=== PATIENT | male | born 1935 | race Caucasian/White ===

== ENCOUNTER 2019-04-19 16:02 | Inpatient (IN) | payer OTHER ==
[~2019-04-19] VITALS: Ht 172.7 cm; Wt 97.2 kg
--- NOTE | 2019-04-19 17:25 | NUR ---
Admission Note with Justification for Admission to [facility] Patient admitted to [facility] for protective oversight for emergency stabilization of acute psychiatric crisis. Pt admitted from: Hospital ER Mode of arrival: EMS Accompanied By: EMS Precipitating behaviors that initiated intake and admission: 20 lb weight loss, failure to thrive, not eating refusing meds, depressed, perseverating on dyspnea, declines visits at times Description of failure of out patient attempts at stabilization in previous setting list behavior and medication trials: tried Buspirone, sertraline, Quetiapine Behaviors and assessment findings upon admission: demanding, anxious, rude, depressed, A&Ox4 Plan: Admit for protective oversight for adjustment and stabilization of medications, behaviors and mood. Intense treatment regimen including groups, medication adjustments, therapy, consistent regimen for ADL's, self care, and sleep hygiene. Daily monitoring by Inpatient staff, Psychiatry, and Medical Physician.
[2019-04-19 17:38] VITALS: BP 109/72
[2019-04-19] MEDS ORDERED: RANI150T2 PO (19:40)
[2019-04-19] MEDS ORDERED: MIRT7.5T8 PO (19:40)
[2019-04-19] MEDS ORDERED: PRAV20TA2 PO (19:40)
[2019-04-19] MEDS ORDERED: BUDE0.25 IH (19:40)
[2019-04-19] MEDS ORDERED: POLY2500 PO (19:40)
[2019-04-19] MEDS ORDERED: SERT50TA PO (19:40)
[2019-04-19] MEDS ORDERED: TAMS0.4C97 PO (19:40)
[2019-04-19] MEDS ORDERED: QUET100T4 PO (19:40)
[2019-04-19] MEDS ORDERED: IPRA3AMP29 NEB (19:40)
[2019-04-19] MEDS ORDERED: METF500T3 PO (19:40)
[2019-04-19] MEDS ORDERED: FINA5TAB4 PO (19:40)
[2019-04-19] MEDS ORDERED: FORM20VI IH (19:40)
[2019-04-19] MEDS ORDERED: METHYL SALICYLATE/MENTHOL TOPICAL OINTMENT 57GM TUBE. TP PRN (20:00)
[2019-04-19] MEDS ORDERED: MAGNESIUM HYDROXIDE 2,400 MG/30 ML ORAL.SUSP. PO PRN (20:00)
[2019-04-19] MEDS ORDERED: MAG HYDROX/AL HYDROX/SIMETH 30 ML ORAL.SUSP PO PRN (20:00)
[2019-04-19] MEDS: BUDESONIDE 0.5 MG/2 ML NEBU NEB SCH (20:04)
[2019-04-19] MEDS: TAMSULOSIN 0.4 MG CAP.ER.24H. PO SCH (20:13)
[2019-04-19] MEDS: MIRTAZAPINE 7.5 MG TABLET. PO SCH (20:13)
[2019-04-19] MEDS: ATORVASTATIN CALCIUM 10 MG TABLET. PO SCH (20:14)
[2019-04-19] MEDS: QUEtiapine 100 MG TABLET. PO SCH (20:14)
[2019-04-19] MEDS ORDERED: NON FORMULARY ITEM (Formoterol Fumarate (Perforomist) 20 MCG) IH SCH (21:00)
[2019-04-19] MEDS ORDERED: BUDESONIDE 0.25 MG IH SCH (21:00)
--- NOTE | 2019-04-19 21:34 | PDOC ---
Exam Note: Alvaro Note: Please also refer to the separate dictated note~for this date of service dictated separately. Discussed the patient with Nursing staff reviewed the chart.~Reviewed interim history and current functioning. Reviewed vital signs,~Labs/ Radiology~and current medications noted below. Continue current treatment with the changes noted in the dictated addendum note Assessment: Vital Signs/I&O: Vital Signs Date Time Temp Pulse Resp B/P (MAP) Pulse Ox O2 Delivery O2 Flow Rate FiO2 04/19/19 20:04 95 Room Air 04/19/19 17:38 97.3 72 17 109/72 (84) Labs: Laboratory Tests Test 04/19/19 19:17 Glucose (Fingerstick) 142 mg/dL (70-99) H Current Medications: Meds: Current Medications Medications (Trade) Dose Ordered Sig/Bree Route PRN Reason Start Time Stop Time Status Last Admin Dose Admin Tamsulosin HCl (Flomax) 0.8 mg HS PO 04/19/19 21:00 04/19/19 20:14 Non-Formulary Medication (Budesonide ) 0.25 mg BID IH 04/19/19 21:00 04/19/19 20:06 DC 04/19/19 20:04 Atorvastatin Calcium (Lipitor) 5 mg QHS PO 04/19/19 21:00 04/19/19 20:14 Mirtazapine (Remeron) 7.5 mg HS PO 04/19/19 21:00 04/19/19 20:14 Quetiapine Fumarate (SEROquel) 100 mg HS PO 04/19/19 21:00 04/19/19 20:14 I have reviewed the current psychotropics carefully including drug interactions. Risk benefit ratio favors no change other than as noted in my dictated progress note. 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
[2019-04-19 22:00] LABS: BASO % 1 % (0-3); EOS # 0.2 x10^3/uL (0.0-0.7); EOS % 4 % (0-3); HEMATOCRIT 43.5 % (39.0-53.0); HEMOGLOBIN 14.9 g/dL (13.0-17.5); LYMPH % 30 % (24-48); MEAN CORPUSCULAR HEMOGLOBIN 30 pg (25-35); MEAN CORPUSCULAR HGB CONC 34 g/dL (31-37); MEAN CORPUSCULAR VOLUME 88 fL (79-100); MONO # 0.5 x10^3/uL (0.0-1.1); MONO % 8 % (0-9); NEUT # 3.8 x10^3uL (1.8-7.7); NEUT % 58 % (31-73); PLATELET COUNT 220 x10^3/uL (140-400); RED BLOOD COUNT 4.92 x10^6/uL (4.30-5.70); RED CELL DISTRIBUTION WIDTH 13.9 % (11.5-14.5); WHITE BLOOD COUNT 6.6 x10^3/uL (4.0-11.0)
[2019-04-19 22:27] LABS: ALBUMIN 3.4 g/dL (3.4-5.0); ALBUMIN/GLOBULIN RATIO 1.1 (1.0-1.7); CALCIUM 9.2 mg/dL (8.5-10.1); CREATININE 1.5 mg/dL (0.7-1.3); GFR 44.8; TOTAL BILIRUBIN 0.4 mg/dL (0.2-1.0); TOTAL PROTEIN 6.6 g/dL (6.4-8.2)
--- NOTE | 2019-04-20 00:50 | NUR ---
Pt sitting in day room at shift change. Pt irritable, demanding, and rude towards staff and other patients. When approached for HS medications and assessment, pt stated "this is a bunch of crap". Pt initially resistive with his medications but took them with encouragement.
[2019-04-20] MEDS: IPRATRPIUM/ALBUTEROL 0.5/2.5MG 3 ML NEBU. NEB PRN (05:35)
[2019-04-20 05:39] VITALS: BP 92/54
[2019-04-20 07:41] VITALS: BP 111/72
[2019-04-20] MEDS: BUDESONIDE 0.5 MG/2 ML NEBU NEB SCH ×2 (08:00→22:01)
[2019-04-20] MEDS: FINASTERIDE 5 MG TABLET PO SCH (08:45)
[2019-04-20] MEDS: SERTRALINE 25 MG TABLET. PO SCH (08:45)
[2019-04-20] MEDS: FAMOTIDINE 20 MG TABLET PO SCH (08:45)
[2019-04-20] MEDS: POLYETHYLENE GLYCOL 3350 17 GM PACKET. PO SCH (08:47)
--- NOTE | 2019-04-20 09:06 | NUR ---
Angel Luis is a CO fee for service as coordinated with SHUBHAM Leyva, at [facility] with contact number of [phone] ext. [phone]. Faxed written authorization letter to [place] registration office this date.
--- NOTE | 2019-04-20 09:29 | NUR ---
Nursing Note: Pt in dining room initially but left and went to his room for morning med pass. Pt irritable, anxious, demanding, claims that he had "no oxygen all night" as he points to oxygen concentrator. Pt was lying in his bed after breakfast and initially refused his medications but took them with encouragement. Pt stated that he was, "going downhill fast" but could not articulate exactly how. Explained that if he just stays in bed that his muscles will decondition and he will feel as if he cannot breath when he is just weak. Also, that if he does not eat he will feel the same way so it is important to give his body fuel. Pt also claimed that he is unable to urinate; planning to bladder scan pt prior to Dr. Bhanu lang. Pt was given breathing treatment this morning; however, pt reported no relief.
--- NOTE | 2019-04-20 11:25 | EKG ---
[address] [address] Test Date: 2019-04-20 Test Time: 05:49:46 Pat Name: MERCEDEZ FORD Department: Room: [facility] 1 Gender: M Director Of Institutional Research: JOSIAH : 1935 Requested By: NORM BRISENO Order Number: [id number] Reading MD: Danilo Pulido MD Measurements Intervals [place] Rate: 57 P: DE: QRS: -28 QRSD: 84 T: 18 QT: 420 QTc: 412 Interpretive Statements SR LAD Electronically Signed On 04-20-2019 16:06:40 CDT by Danilo Pulido MD
[2019-04-20 13:05] LABS: THYROID STIM HORMONE (TSH) 1.085 uIU/mL (0.358-3.740)
--- NOTE | 2019-04-20 13:40 | HP ---
ADMIT DATE: 04/19/2019 PSYCHIATRIC ADMISSION HISTORY AND EVALUATION This late entry, 04/19/2019, covers elements not covered in my initial note of 04/19/2019. The patient was seen individually evening of 04/19/2019. Discussed with Iris Brannon, dental hygienist mobile coordinator on 2 or 3 occasions earlier in the day and reviewed all the referral information from the [facility] where the patient has been on the Psychiatry and Medical/Surgical floor over the past 1 month or more on account of his confusion, depression, symptoms of failure to thrive, 20-pound weight loss, refusing medications, marked obsessiveness, declines visits from family at times. The patient had been sent to [facility] as a step-down from [facility], but he was unmanageable there, returned right back to the facility and he is referred to us for inpatient psychiatric stabilization on the Geriatric Psychiatry Unit since he has failed the inpatient psychiatry treatment at [facility]. He is referred by Dr. Pierce, his outpatient psychiatrist and Dr. Stacia Crowley, his primary care physician. He has also failed prior inpatient hospitalization at [facility] Psychiat[facility] In[facility] at [facility]. In the interim, his and son have been appointed co-guardians by the court. CHIEF COMPLAINT: "I came here today. I don't know why." HISTORY OF PRESENT ILLNESS: Reportedly, the patient had been recently living at home with his , was getting increasingly depressed, hopeless, helpless, worthless, failure to thrive. He has been inpatient as noted above and has been at the [facility] for perhaps longer than a month on different services and prior to that failed outpatient psychiatric interventions. He has been anxious, obsessive, admits to feeling helpless, hopeless, worthless, then minimizes this. He seems to have some mood swings, but no clear diagnosis of bipolar disorder. He does have short-term memory deficits and sleep disturbance as well. PAST PSYCHIATRIC HISTORY: As noted above. MEDICAL HISTORY: BPH, type 2 diabetes mellitus, hyperlipidemia, coronary artery disease, osteoporosis, GERD, colon polyps, failure to thrive, broken coccyx in 09/2018, chronic dyspnea, history of esophageal dilatation 15 years ago, 20-pound weight loss and anxiety. ACCU-CHEKS: Before meals and at bedtime. CODE STATUS: Full code. ALLERGIES: TETANUS TOXOID, AMBIEN, DEPAKOTE. DIET: Ground meat. Takes medications whole. UA negative at [facility]. He remains anxious, irritable, resistive, demanding, quite rude. CURRENT PSYCHOTROPICS: Zoloft 75 mg a day, Seroquel 100 mg at bedtime, Remeron 7.5 mg at bedtime. FAMILY HISTORY: Noncontributory. SOCIAL HISTORY: No clear history of alcohol, drug abuse, physical, sexual or elder abuse. Not known to be a perpetrator. REACTION TO HOSPITALIZATION: The patient accepting of it. ASSETS: Supportive family. MENTAL STATUS EXAMINATION: The patient was seen individually evening of 04/19/2019. I met with him at some length. He is oriented to himself and situation, knew he arrived here earlier in the day on 04/19/2019 from the [facility]. He is aware that the president is President Mal, knew it was 2018, but unsure of the date. Speech coherent, at times rapid. He is anxious. Mood is depressed. Affect is mood congruent. No active suicidal or homicidal ideation. He is somewhat paranoid, minimizes circumstances prompting admission. Attention span short. Language function intact. Intellect average. Insight limited, judgment marginal, resulting in the guardianship noted above. LABORATORY DATA: Reviewed. IMPRESSION: Major depressive disorder, recurrent with possible psychotic features, mild cognitive impairment; anxiety disorder, unspecified; rule out bipolar disorder, unspecified. Rest as above. PLAN: Admit to Geropsychiatry Unit at [facility]. I will see the patient daily individually from a psychiatric standpoint. Medical followup with Dr. Drummond. We will continue the patient on his current medications, observe baseline. Further review all his extensive records from the [facility]. Make further adjustments as clinically indicated. If symptoms of bipolar disorder are evident, may consider Depakote as a mood stabilizer. May consider Abilify to augment the Zoloft and may need to consider increasing the Zoloft or changing his antidepressants to another SSRI or SNRI depending on his past responses. We will make all those decisions after the baseline assessment. NORM BRISENO MD DR: ESTHER/joel JOB#: [id number] / [id number]
[2019-04-20 16:23] VITALS: BP 100/66
--- NOTE | 2019-04-20 16:24 | NUR ---
Nursing Note: Bladder scanned pt and found that he had approx 121ml. No need to straight cath. As pt being scanned pt said that he had just urinated but not much had "come out' and that he was not drinking very much. Reminded pt that if he does not drink that he will become dehydrated and require an IV. Pt stated that he didn't eat lunch;told pt that if he doesn't eat he will end up down on Med Surg very weak.
[2019-04-20] MEDS: metFORMIN XR 500 MG TAB.ER.24H PO SCH (17:00)
--- NOTE | 2019-04-20 17:47 | NUR ---
Nursing Note: Pt's and daughter visited. Daughter claims that pt is manipulative, highly intelligent, enjoys being the center of attention especially surrounding being sick. Pt's mother committed suicide when he was young after learning that she had cancer. Pt was mother's only child; father went on to remarry and have three more children. Pt was raised by an aunt that never and gave all of her attention to pt. Daughter believes that is an enabler. suffered multiple fractures as the result of falling down a flight of stairs and before completely healing began waiting on pt "hand and foot." According to daughter, pt's son moved to a different country to escape his father's manipulation. Pt was on 10th floor, psych floor, of [facility] within this year. Angel Luis BENAVIDES from Pt' Primary Care Team @ the [facility] called and is avail for more information at [phone]. Sent for records from [facility]. Staff informed that pt wet through his brief after dinner.
--- NOTE | 2019-04-20 18:00 | NUR ---
Pt requested lab results; given to pt per Dr. Garcia.
[2019-04-20 18:06] LABS: THYROXINE 6.5 ug/dL (4.5-12.0)
[2019-04-20] MEDS: ATORVASTATIN CALCIUM 10 MG TABLET. PO SCH (19:28)
[2019-04-20] MEDS: MIRTAZAPINE 7.5 MG TABLET. PO SCH (19:29)
[2019-04-20] MEDS: TAMSULOSIN 0.4 MG CAP.ER.24H. PO SCH (19:29)
[2019-04-20] MEDS: QUEtiapine 100 MG TABLET. PO SCH (19:29)
[2019-04-20] MEDS: CYPROHEPTADINE 4 MG TABLET. PO SCH (19:31)
[2019-04-20] MEDS ORDERED: NYSTATIN TOPICAL POWDER 15GM BOTTLE. TP PRN (20:45)
--- NOTE | 2019-04-20 21:33 | NUR ---
Pt sitting in day room at shift change. Pt slightly anxious but pleasant this evening, interactive with this nurse. Pt encouraged to drink more fluids and to eat a snack but pt resistive despite education. Pt cooperative with assessment and compliant with medications administered whole.
--- NOTE | 2019-04-20 21:37 | PDOC ---
Exam Note: Alvaro Note: Please also refer to the separate dictated note~for this date of service dictated separately.~Patient seen individually. Discussed the patient with Nursing staff reviewed the chart.~Reviewed interim history and current functioning. Reviewed vital signs,~Labs/ Radiology~and current medications noted below. Continue current treatment with the changes noted in the dictated addendum note Assessment: Vital Signs/I&O: Vital Signs Date Time Temp Pulse Resp B/P (MAP) Pulse Ox O2 Delivery O2 Flow Rate FiO2 04/20/19 20:10 97 Room Air 04/20/19 16:23 98.1 69 18 100/66 (77) I & O 04/19/19 04/19/19 04/20/19 15:00 23:00 07:00 Intake Total 240 ml 360 ml Balance 240 ml 360 ml Labs: Laboratory Tests Test 04/19/19 21:40 04/20/19 07:25 04/20/19 12:01 04/20/19 17:09 White Blood Count 6.6 x10^3/uL (4.0-11.0) Red Blood Count 4.92 x10^6/uL (4.30-5.70) Hemoglobin 14.9 g/dL (13.0-17.5) Hematocrit 43.5 % (39.0-53.0) Mean Corpuscular Volume 88 fL (79-100) Mean Corpuscular Hemoglobin 30 pg (25-35) Mean Corpuscular Hemoglobin Concent 34 g/dL (31-37) Red Cell Distribution Width 13.9 % (11.5-14.5) Platelet Count 220 x10^3/uL (140-400) Neutrophils (%) (Auto) 58 % (31-73) Lymphocytes (%) (Auto) 30 % (24-48) Monocytes (%) (Auto) 8 % (0-9) Eosinophils (%) (Auto) 4 % (0-3) H Basophils (%) (Auto) 1 % (0-3) Neutrophils # (Auto) 3.8 x10^3uL (1.8-7.7) Lymphocytes # (Auto) 2.0 x10^3/uL (1.0-4.8) Monocytes # (Auto) 0.5 x10^3/uL (0.0-1.1) Eosinophils # (Auto) 0.2 x10^3/uL (0.0-0.7) Basophils # (Auto) 0.0 x10^3/uL (0.0-0.2) Sodium Level 141 mmol/L (136-145) Potassium Level 4.0 mmol/L (3.5-5.1) Chloride Level 106 mmol/L (98-107) Carbon Dioxide Level 27 mmol/L (21-32) Anion Gap 8 (6-14) Blood Urea Nitrogen 28 mg/dL (8-26) H Creatinine 1.5 mg/dL (0.7-1.3) H Estimated GFR (Cockcroft-Gault) 44.8 BUN/Creatinine Ratio 19 (6-20) Glucose Level 91 mg/dL (70-99) Calcium Level 9.2 mg/dL (8.5-10.1) Iron Level 36 ug/dL (65-175) L Total Iron Binding Capacity 254 ug/dL (250-450) Iron Saturation 14 % (15-34) L Total Bilirubin 0.4 mg/dL (0.2-1.0) Aspartate Amino Transferase (AST) 22 U/L (15-37) Alanine Aminotransferase (ALT) 38 U/L (16-63) Alkaline Phosphatase 67 U/L (46-116) Total Protein 6.6 g/dL (6.4-8.2) Albumin 3.4 g/dL (3.4-5.0) Albumin/Globulin Ratio 1.1 (1.0-1.7) Triglycerides Level 74 mg/dL (0-150) Cholesterol Level 98 mg/dL (0-200) LDL Cholesterol, Calculated 42 mg/dL (0-100) VLDL Cholesterol, Calculated 14 mg/dL (0-40) Non-HDL Cholesterol Calculated 56 mg/dL (0-129) HDL Cholesterol 42 mg/dL (40-60) Cholesterol/HDL Ratio 2.0 25-Hydroxy Vitamin D Total 45.4 ng/mL (30-100) Thyroid Stimulating Hormone (TSH) 1.085 uIU/mL (0.358-3.740) Thyroxine (T4) 6.5 ug/dL (4.5-12.0) Total Triiodothyronine (TT3) 100 ng/dL (71-180) Treponema pallidum Antibody Nonreactive (Nonreactive) Glucose (Fingerstick) 121 mg/dL (70-99) H 99 mg/dL (70-99) 121 mg/dL (70-99) H Test 04/20/19 19:50 Glucose (Fingerstick) 100 mg/dL (70-99) H Current Medications: Meds: Current Medications Medications (Trade) Dose Ordered Sig/Bree Route PRN Reason Start Time Stop Time Status Last Admin Dose Admin Finasteride (Proscar) 5 mg DAILY PO 04/20/19 09:00 04/20/19 08:47 Metformin HCl (Glucophage Xr) 500 mg DAILYWSUP PO 04/20/19 17:00 04/20/19 17:31 Polyethylene Glycol (miraLAX) 17 gm DAILY PO 04/20/19 09:00 04/20/19 08:47 Famotidine (Pepcid) 20 mg DAILY PO 04/20/19 09:00 04/20/19 08:47 Sertraline HCl (Zoloft) 75 mg DAILY PO 04/20/19 09:00 04/20/19 08:47 Cyproheptadine HCl (Periactin) 2 mg QHS PO 04/20/19 21:00 04/20/19 19:31 I have reviewed the current psychotropics carefully including drug interactions. Risk benefit ratio favors no change other than as noted in my dictated progress note. 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
[2019-04-21 04:09] LABS: HEMOGLOBIN A1C 5.6 % (4.8-5.6)
[2019-04-21 06:13] VITALS: BP 109/69
[2019-04-21] MEDS: POLYETHYLENE GLYCOL 3350 17 GM PACKET. PO SCH (08:07)
[2019-04-21] MEDS: FAMOTIDINE 20 MG TABLET PO SCH (08:07)
[2019-04-21] MEDS: FINASTERIDE 5 MG TABLET PO SCH (08:07)
[2019-04-21] MEDS: SERTRALINE 25 MG TABLET. PO SCH (08:07)
--- NOTE | 2019-04-21 10:47 | NUR ---
Has been resistive to all cares this a.m. Finally walked to dining room and ate breakfast with intense redirecting by staff. Then repeatedly states "I can't I can't." Took meds whole with sips of water and miralax in OJ, but did not complete entire dose of miralax. Same behavior with shower. Assisted by 2 then received shower. Physically able to ambulate and participate in all activities, but isolates in his bed. Just now, when asked to go to group, became demanding RT be called now for his nebulizer treatment. O2 sat is 97%, no observed respiratory distress, no coughing and no drainage. When asked why he wants the treatment, states "It's twice a day, check the record, quit asking me all these questions and call them now!" Lying in bed, fully clothed, resting on L side, awake.
--- NOTE | 2019-04-21 10:54 | NUR ---
RT notified and plans to see him soon. Pt. informed of same.
[2019-04-21] MEDS: BUDESONIDE 0.5 MG/2 ML NEBU NEB SCH ×2 (10:58→20:06)
--- NOTE | 2019-04-21 12:32 | CONS ---
DATE OF CONSULTATION: REASON FOR CONSULTATION: Medical management. HISTORY OF PRESENT ILLNESS: The patient is an 83-year-old female patient who apparently was referred from [facility] where the patient has been on the Psychiatry and Medical/Surgical floor over the past month or more on account of his confusion, depression, symptoms of failure to thrive, has lost about 20 pounds in weight, refusing medication and marked obsessiveness declines visits from the family at times. He was sent to [facility] as a step-down from [facility], but he was unmanageable there, returned right back to the facility and he was referred to us for inpatient psychiatric stabilization. He apparently has been living at home with his , was getting increasingly depressed, hopeless, helpless, worthless, failure to thrive, has been an inpatient as well as above and has been at the [facility] for perhaps longer than a month, different services and prior to that failed outpatient psychiatric stabilization and was admitted to this unit for inpatient psychiatric stabilization. PAST MEDICAL HISTORY: Significant for benign prostatic hypertrophy, type 2 diabetes, hyperlipidemia, coronary artery disease, osteoporosis, gastroesophageal reflux disease. He has colon polyps and broken coccyx, chronic dyspnea, history of esophageal dilatation 15 years ago and 20-pound weight loss. PAST SURGICAL HISTORY: Significant for esophageal dilatation and colonoscopy. ALLERGIES: He is allergic to TETANUS TOXOIDS, AMBIEN and DEPAKOTE. FAMILY HISTORY: Noncontributory. SOCIAL HISTORY: He is . Apparently, he does not smoke, drink alcohol or use recreational drugs. MEDICATIONS: He is currently on following medications: He is on ipratropium bromide, albuterol sulfate, DuoNeb in 3 mL by nebulizer 4 times a day, formoterol fumarate or Perforomist 20 mcg twice a day, Flomax 0.8 mg at bedtime, pravastatin 20 mg at bedtime, mirtazapine 7.5 mg at bedtime, sertraline or Zoloft 75 mg daily, quetiapine fumarate 100 mg at bedtime, Pulmicort 0.5 mg twice a day, ranitidine 150 mg once a day, metformin extended release 500 mg daily, finasteride 5 mg daily and polyethylene glycol 17 grams daily. PHYSICAL EXAMINATION: GENERAL: On examining him, he was sitting comfortably in his chair, in no apparent distress. He is definitely pale, but no jaundice or cyanosis. No lymphadenopathy, no thyromegaly. No jugular venous distension. No lower limb edema. VITAL SIGNS: His heart rate was 62, blood pressure was 111/72, temperature was 98, respiratory rate 22, and oxygen saturation was 97% on room air. HEAD, EYES, EARS, NOSE AND THROAT: Showed normocephalic, atraumatic. NECK: Supple. HEART: Showed normal first and second heart sounds with no gallop, rub or murmur. CHEST: Clear to auscultation. No crepitation or rhonchi. ABDOMEN: Distended, soft, nontender. No guarding or rigidity. No organomegaly. All hernial orifice intact. Bowel sounds normal. NEUROLOGIC: He was awake, alert, responding appropriately. All cranial nerves are intact. EXTREMITIES: He moves extremities without difficulty. He ambulates without assistance or assistive devices. LABORATORY DATA: Showed a serum sodium 141, potassium 4, chloride 106, bicarbonate 27, anion gap of 8, BUN 28, creatinine 1.5, estimated GFR was 45 mL per minute. His glucose was 91, calcium was 9.2. Total bilirubin, AST, ALT, alkaline phosphatase were normal. Total protein was 6.6, albumin was 3.4. His white cell count was 6600, hemoglobin 15, hematocrit 44, MCV 88 and platelet count 120,000. His treponema pallidum antibodies were nonreactive. IMPRESSION: In summary, this is an 83-year-old male patient who was admitted on account of 20-pound weight loss, failure to thrive, not eating, refusing medication, due to weight and dyspnea, declines visits at times, all this in a background of major depressive disorder. Medically, he is known to have benign prostatic hypertrophy, type 2 diabetes, hyperlipidemia, coronary artery disease, osteoporosis, gastroesophageal reflux disease and esophageal stricture that was dilated about 15 years ago; however, all in all, the patient seems to be medically stable. All his vital signs are within acceptable range and all his lab works are well within the normal range for his age. His serum iron, TIBC and iron saturation are all consistent with adequate iron stores. His serum triglycerides 74, total cholesterol 98, LDL was 42, VLDL was 14, HDL was 52 and ratio was 2. His 25-hydroxy vitamin D score stores were adequate at 45 and TSH was normal at 1.085. I will definitely continue all his current medication. I will follow his lab works that are still pending at the time of this dictation and make any necessary recommendation. Thank you, Dr. Garcia, for allowing me to participate in the care of this patient. BRITTNI DIMAS MD DR: HOANG/joel JOB#: [id number] / [id number]
[2019-04-21 16:03] VITALS: BP 94/58
[2019-04-21] MEDS: metFORMIN XR 500 MG TAB.ER.24H PO SCH (16:28)
[2019-04-21] MEDS: TAMSULOSIN 0.4 MG CAP.ER.24H. PO SCH (20:12)
[2019-04-21] MEDS: CYPROHEPTADINE 4 MG TABLET. PO SCH (20:12)
[2019-04-21] MEDS: ATORVASTATIN CALCIUM 10 MG TABLET. PO SCH (20:13)
[2019-04-21] MEDS: QUEtiapine 100 MG TABLET. PO SCH (20:13)
[2019-04-21] MEDS: MIRTAZAPINE 7.5 MG TABLET. PO SCH (20:13)
--- NOTE | 2019-04-21 22:54 | PDOC ---
Exam Note: Alvaro Note: Please also refer to the separate dictated note~for this date of service dictated separately.~Patient seen individually. Discussed the patient with Nursing staff reviewed the chart.~Reviewed interim history and current functioning. Reviewed vital signs,~Labs/ Radiology~and current medications noted below. Continue current treatment with the changes noted in the dictated addendum note Assessment: Vital Signs/I&O: Vital Signs Date Time Temp Pulse Resp B/P (MAP) Pulse Ox O2 Delivery O2 Flow Rate FiO2 04/21/19 20:08 95 Room Air 04/21/19 16:03 97.7 70 20 94/58 (70) I & O 04/20/19 04/20/19 04/21/19 15:00 23:00 07:00 Intake Total 600 ml 360 ml Balance 600 ml 360 ml Labs: Laboratory Tests Test 04/21/19 07:12 04/21/19 11:42 04/21/19 16:25 Glucose (Fingerstick) 114 mg/dL (70-99) H 125 mg/dL (70-99) H 128 mg/dL (70-99) H Current Medications: I have reviewed the current psychotropics carefully including drug interactions. Risk benefit ratio favors no change other than as noted in my dictated progress note. 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
--- NOTE | 2019-04-21 23:26 | NUR ---
Nursing Note: Assumed care of pt this evening, he was sitting in the day room. He has been calm, irritable at times, and withdrawn to self. He has been compliant with taking his HS meds whole this evening. No agitation or aggression noted at this time.
[2019-04-22] MEDS: IPRATRPIUM/ALBUTEROL 0.5/2.5MG 3 ML NEBU. NEB PRN (01:15)
[2019-04-22 05:57] VITALS: BP 105/72
[2019-04-22] MEDS: FAMOTIDINE 20 MG TABLET PO SCH (08:03)
[2019-04-22] MEDS: SERTRALINE 25 MG TABLET. PO SCH (08:04)
[2019-04-22] MEDS: POLYETHYLENE GLYCOL 3350 17 GM PACKET. PO SCH (08:05)
[2019-04-22] MEDS: FINASTERIDE 5 MG TABLET PO SCH (08:05)
[2019-04-22] MEDS: BUDESONIDE 0.5 MG/2 ML NEBU NEB SCH ×2 (10:49→19:57)
--- NOTE | 2019-04-22 14:30 | NUR ---
ACTIVITY THERAPY ASSESSMENT Completed based on observation and interview. Pt. was in his room, with his roommate and agreeable to speak with ELECTRONIC SC[employer] ASSEMBLER [employer] TESTER with roommate present. When asked about leisure interests and hobbies, he explained he doesn't do much of anything anymore. He said "my number one problem is my breathing." He also explained he doesn't drive anymore so he cannot get involved with the [employer] or vivio any longer. He watches "a lot" of TV. He has not interest in music or exercising. Pt and ELECTRONIC SCALE ASSEMBLER AND TESTER talked about common length of stay here and group activities. Pt. asked about a schedule and ELECTRONIC SC[employer] ASSEMBLER [employer] TESTER will print him one to keep. He was concerned about the times of group. E[employer]IC SC[employer] ASSEMBLER AND TESTER asked if Pt. wanted staff to tell him when a group is starting. He said he would like that. E[employer] AS[employer]BLER AND TESTER asked if he wanted to be woken up for group, he said yes, explaining he sleeps during the day too much and then he's up all night. Pt. can fixate on breathing treatments and upon admission was anxious, irritable and making rude comments. Pt. was pleasant throughout this assessment. The two talked about anxiety and ways to reduce stress. Initial goal aimed to increase relaxation techniques and leisure awareness: Pt. will participate in at least five Activity Therapy groups per week. Addendum: 05/31/19 at 1035 by HUSSEIN BECKER ACT Goal Changed 05/31: Pt. will participate in at least one Activity Therapy group per day
--- NOTE | 2019-04-22 14:44 | NUR ---
Out of room more today. Has gone to meals. Denies pain. Interacting some with peers. No somatic complaints yet today. Has been aware of disruption with other patients on the floor. Managing well.
[2019-04-22 15:35] VITALS: BP 128/79
[2019-04-22] MEDS: metFORMIN XR 500 MG TAB.ER.24H PO SCH (16:54)
[2019-04-22] MEDS: TAMSULOSIN 0.4 MG CAP.ER.24H. PO SCH (19:51)
[2019-04-22] MEDS: ATORVASTATIN CALCIUM 10 MG TABLET. PO SCH (19:51)
[2019-04-22] MEDS: QUEtiapine 100 MG TABLET. PO SCH (19:52)
[2019-04-22] MEDS: CYPROHEPTADINE 4 MG TABLET. PO SCH (19:52)
[2019-04-22] MEDS: MIRTAZAPINE 7.5 MG TABLET. PO SCH (19:52)
[2019-04-22] MEDS: DOCUSATE SODIUM 100 MG CAPSULE PO SCH (21:18)
--- NOTE | 2019-04-22 21:31 | PDOC ---
Exam Note: Alvaro Note: Please also refer to the separate dictated note~for this date of service dictated separately.~Patient seen individually. Discussed the patient with Nursing staff reviewed the chart.~Reviewed interim history and current functioning. Reviewed vital signs,~Labs/ Radiology~and current medications noted below. Continue current treatment with the changes noted in the dictated addendum note Assessment: Vital Signs/I&O: Vital Signs Date Time Temp Pulse Resp B/P (MAP) Pulse Ox O2 Delivery O2 Flow Rate FiO2 04/22/19 19:58 95 Room Air 04/22/19 15:35 97.7 61 20 128/79 (95) 04/22/19 01:15 2.0 I & O 0 04/21/19 04/21/19 04/22/19 15:00 23:00 07:00 Intake Total 120 ml 240 ml 120 ml Balance 120 ml 240 ml 120 ml Current Medications: Meds: Current Medications Medications (Trade) Dose Ordered Sig/Bree Route PRN Reason Start Time Stop Time Status Last Admin Dose Admin Docusate Sodium (Colace) 100 mg BID PO 04/22/19 21:00 04/22/19 21:18 I have reviewed the current psychotropics carefully including drug interactions. Risk benefit ratio favors no change other than as noted in my dictated progress note. Diagnosis: Problems: (1) Anxiety disorder (2) Impulse control disorder (3) Mild cognitive impairment (4) Major depressive disorder, recurrent episode (5) Personality disorder in adult NORM BRISENO MD Apr 22, 2019 21:31
--- NOTE | 2019-04-22 23:58 | PN ---
DATE: 04/21/2019 PSYCHIATRY PROGRESS NOTE This late entry, 04/21, covers elements not covered in my initial note. SUBJECTIVE: I met with the patient at length in the evening and had been called as an emergency by the nursing staff earlier in the day on account of the patient's agitation and after he tried to push another female nursing staff. He was refusing his medications, refused to eat, but ate some snacks. REVIEW OF SYSTEMS: No CV, , pulmonary, eye system symptoms on review. MENTAL STATUS EXAM: The patient is reasonably oriented. Speech is coherent, abstraction fair, computation impaired, language function intact. Mood and affect remain somewhat anxious, depressed. No suicidal or homicidal ideation. LABORATORY DATA: Reviewed. IMPRESSION: Major depressive disorder, rule out psychotic features; anxiety disorder, unspecified; rest unchanged. PLAN: Continue current psychotropics, but consider changing Seroquel to Abilify, increasing the Zoloft gradually. For now, Periactin has been added and may consider SNRIs as well. If symptoms of mood lability are evident for bipolar disorder, unspecified, may consider adding Lamictal. MAN Suman BRISENO MD DR: ESTHER/joel JOB#: [id number] / [id number]
--- NOTE | 2019-04-23 00:26 | NUR ---
Nursing Note Pt asking for colace, having trouble having a BM per his report. Pt is in the day room, calm and cooperative. Smiles on approach, denies other complaints.
[2019-04-23 05:59] VITALS: BP 103/67
[2019-04-23] MEDS: FAMOTIDINE 20 MG TABLET PO SCH (08:43)
[2019-04-23] MEDS: DOCUSATE SODIUM 100 MG CAPSULE PO SCH ×3 (08:43→20:43)
[2019-04-23] MEDS: FINASTERIDE 5 MG TABLET PO SCH (08:43)
[2019-04-23] MEDS: POLYETHYLENE GLYCOL 3350 17 GM PACKET. PO SCH (08:43)
[2019-04-23] MEDS: SERTRALINE 100 MG TABLET. PO SCH (09:51)
--- NOTE | 2019-04-23 09:53 | NUR ---
Nursing Note: Pt stopped this nurse in dining room and asked, "Are you my nurse?" Answered yes. Pt stated, "I'm getting a little worse every day." When giving pt morning meds, pt was compliant taken whole, refused Colace stating he had two BM during the night. Pt continues to report that he is declining and that he struggles to breath. Pt was talking w/o any trouble, breath sounds were clear, O2 Sat 98%. Explained to pt that there was no evidence that his body was struggling for air. Practiced deep breathing exercises w/ pt. Also, reminded pt that it is important to spend time out of his room to prevent muscle atrophy. Walked with pt to day room where he is waiting to participate in group. Will continue to monitor.
[2019-04-23] MEDS: BUDESONIDE 0.5 MG/2 ML NEBU NEB SCH ×2 (10:51→20:13)
--- NOTE | 2019-04-23 13:30 | NUR ---
Nursing Note: Bladder Scanned pt after he voided. Less than 75mls found.
[2019-04-23 16:06] VITALS: BP 121/71
--- NOTE | 2019-04-23 17:06 | PN ---
DATE: 04/20/2019 PSYCHIATRIC PROGRESS NOTE This late entry of 04/20/2019 covers elements not covered in my initial note. SUBJECTIVE: I met with the patient on an evening of 04/20/2019. The patient slept 7-3/4 hours previous night. He continues to be somewhat anxious with some mood lability. Nursing staff noted him to be manipulative. During the individual visit, we addressed to create a fields and he talked about having worked for [employer]. He talked about his feelings surrounding the loss of his mother when she committed suicide secondary to cancer and this affected him significantly. He was then brought up with an aunt who of sarcoidosis, reportedly. REVIEW OF SYSTEMS: No CV, , pulmonary, eye, ENT system symptoms on review. He has vague somatic symptoms. MENTAL STATUS EXAM: Reasonably oriented. Speech is coherent, abstraction fair, computation impaired, language function intact. Mood and affect is depressed, anxious, somewhat suspicious at times. LABORATORY DATA: Reviewed. IMPRESSION: Major depressive disorder with psychotic features; anxiety disorder, unspecified. Rest unchanged; mild cognitive impairment. PLAN: Continue Zoloft 75 mg a day, Seroquel 100 mg at bedtime, Remeron 7.5 mg at bedtime. We will go ahead and add Periactin 2 mg at bedtime to help stimulate his appetite and consider increasing the Zoloft, changing the Seroquel to Abilify to augment the antidepressant or later changing the SSRIs to SNRIs. Maintain Remeron 7.5 mg at bedtime. NORM BRISENO MD DR: ESTHER/joel JOB#: [id number] / [id number]
[2019-04-23] MEDS: metFORMIN XR 500 MG TAB.ER.24H PO SCH (17:16)
[2019-04-23] MEDS: CYPROHEPTADINE 4 MG TABLET. PO SCH (20:43)
[2019-04-23] MEDS: QUEtiapine 100 MG TABLET. PO SCH (20:43)
[2019-04-23] MEDS: ATORVASTATIN CALCIUM 10 MG TABLET. PO SCH (20:43)
[2019-04-23] MEDS: TAMSULOSIN 0.4 MG CAP.ER.24H. PO SCH (20:43)
[2019-04-23] MEDS: MIRTAZAPINE 7.5 MG TABLET. PO SCH (20:43)
[2019-04-23] MEDS: ACETAMINOPHEN 325 MG TABLET PO PRN (20:49)
--- NOTE | 2019-04-23 21:39 | PDOC ---
Exam Note: Alvaro Note: Please also refer to the separate dictated note~for this date of service dictated separately.~Patient seen individually. Discussed the patient with Nursing staff reviewed the chart.~Reviewed interim history and current functioning. Reviewed vital signs,~Labs/ Radiology~and current medications noted below. Continue current treatment with the changes noted in the dictated addendum note Assessment: Vital Signs/I&O: Vital Signs Date Time Temp Pulse Resp B/P (MAP) Pulse Ox O2 Delivery O2 Flow Rate FiO2 04/23/19 20:13 97 Room Air 04/23/19 16:06 97.8 81 18 121/71 (88) 04/22/19 01:15 2.0 I & O 0 04/22/19 04/22/19 04/23/19 14:59 22:59 06:59 Intake Total 600 ml 360 ml Balance 600 ml 360 ml Current Medications: Meds: Current Medications Medications (Trade) Dose Ordered Sig/Bree Route PRN Reason Start Time Stop Time Status Last Admin Dose Admin Sertraline HCl (Zoloft) 100 mg DAILY PO 04/23/19 09:00 04/23/19 09:51 I have reviewed the current psychotropics carefully including drug interactions. Risk benefit ratio favors no change other than as noted in my dictated progress note. Diagnosis: Problems: (1) Anxiety disorder (2) Impulse control disorder (3) Mild cognitive impairment (4) Major depressive disorder, recurrent episode (5) Personality disorder in adult NORM BRISENO MD Apr 23, 2019 21:39
--- NOTE | 2019-04-23 22:25 | PN ---
DATE: 04/22/2019 PSYCHIATRIC PROGRESS NOTE This late entry 04/22/2019 covers elements not covered in my initial note. SUBJECTIVE: I met with the patient evening of 04/22/2019. The patient slept 6-3/4 hours previous night. He has been out of the room more, somewhat better during the day on 04/22/2019. Reviewed his past history. His mother when he was quite young and he was raised by his aunt. Medically, he has had some esophageal dilatation and swallowing problems in the past that could account for some of his poor appetite but all of this has been worked up at the [facility] where he had stayed for many months. He does complain of constipation, remains on MiraLax and we will add Colace 100 mg twice a day. REVIEW OF SYSTEMS: No CV, , pulmonary, eye system symptoms on review. MENTAL STATUS EXAM: Reasonably oriented. Speech is coherent, abstraction fair, computation impaired, language function intact, attention span short. Mood and affect somewhat withdrawn, at times a little anxious, obsessive. LABORATORY DATA: Reviewed. IMPRESSION: Major depressive disorder with psychotic features; anxiety disorder, unspecified. Rest unchanged. Mild cognitive impairment. PLAN: Increase Zoloft from 75 mg a day to 100 mg a day after he has been on 75 for 3 days. Add the Colace. Rest unchanged from initial note. MAN Suman BRISENO MD DR: ESTHER/joel JOB#: [id number] / [id number]
--- NOTE | 2019-04-23 22:48 | NUR ---
Nursing Note: Assumed care of pt. this evening, he was in his room. He has been calm, resistive with care at times, and withdrawn. He has been compliant with taking his HS meds whole this evening. Pt. initially was refusing his shower, but did take it later on. No agitation or aggression noted at this time.
[2019-04-24 06:06] VITALS: BP 99/64
[2019-04-24] MEDS: DOCUSATE SODIUM 100 MG CAPSULE PO SCH ×2 (07:54→21:00)
[2019-04-24] MEDS: SERTRALINE 100 MG TABLET. PO SCH (07:54)
[2019-04-24] MEDS: POLYETHYLENE GLYCOL 3350 17 GM PACKET. PO SCH (07:54)
[2019-04-24] MEDS: FINASTERIDE 5 MG TABLET PO SCH (07:54)
[2019-04-24] MEDS: FAMOTIDINE 20 MG TABLET PO SCH (07:54)
--- NOTE | 2019-04-24 08:40 | NUR ---
Nursing Note: Patient is compliant with medication administration, although hesitant and suspicious of medications given and states, "They won't work at all." Patient was reluctant to get out of bed this morning to walk to the dining room. Patient continues to state that he is too weak to walk around, eat, swallow or do anything on his own seeking constant attention and reassurance from staff. Addendum: 04/24/19 at 1411 by YINA GAMBOA RN Patient fixated on "oxygen tubing" and that it was taken away from him. Addendum: 04/24/19 at 1818 by YINA GAMOBA RN See medication changes.
[2019-04-24] MEDS: BUDESONIDE 0.5 MG/2 ML NEBU NEB SCH ×2 (11:14→21:53)
[2019-04-24 15:45] VITALS: BP 98/68
[2019-04-24] MEDS: metFORMIN XR 500 MG TAB.ER.24H PO SCH (16:44)
[2019-04-24] MEDS: CYPROHEPTADINE 4 MG TABLET. PO SCH (20:19)
[2019-04-24] MEDS: TAMSULOSIN 0.4 MG CAP.ER.24H. PO SCH (20:19)
[2019-04-24] MEDS: MIRTAZAPINE 7.5 MG TABLET. PO SCH (20:19)
[2019-04-24] MEDS: QUEtiapine 100 MG TABLET. PO SCH (20:20)
[2019-04-24] MEDS: ATORVASTATIN CALCIUM 10 MG TABLET. PO SCH (20:20)
--- NOTE | 2019-04-24 21:49 | PDOC ---
Exam Note: Alvaro Note: Please also refer to the separate dictated note~for this date of service dictated separately.~Patient seen individually. Discussed the patient with Nursing staff reviewed the chart.~Reviewed interim history and current functioning. Reviewed vital signs,~Labs/ Radiology~and current medications noted below. Continue current treatment with the changes noted in the dictated addendum note Assessment: Vital Signs/I&O: Vital Signs Date Time Temp Pulse Resp B/P (MAP) Pulse Ox O2 Delivery O2 Flow Rate FiO2 04/24/19 20:25 98 Room Air 04/24/19 15:45 97.6 69 20 98/68 (78) 04/22/19 01:15 2.0 I & O 04/23/19 04/23/19 04/24/19 15:00 23:00 07:00 Intake Total 480 ml 240 ml 240 ml Balance 480 ml 240 ml 240 ml Current Medications: Meds: Current Medications Medications (Trade) Dose Ordered Sig/Bree Route PRN Reason Start Time Stop Time Status Last Admin Dose Admin Fluvoxamine Maleate (Luvox) 50 mg HS PO 04/24/19 21:00 04/27/19 09:00 04/24/19 20:23 I have reviewed the current psychotropics carefully including drug interactions. Risk benefit ratio favors no change other than as noted in my dictated progress note. 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
--- NOTE | 2019-04-24 23:49 | PN ---
DATE: 04/23/2019 PROGRESS NOTE This late entry 04/23/2019 covers elements not covered in my initial note. SUBJECTIVE: I met with the patient evening of 04/23/2019. The patient slept 7 hours previous night. He has been somatically preoccupied with his breathing treatment, repeatedly asking for it, but there is no evidence objectively that he needs it. He states he is getting weaker every day. He did get agitated in the morning, somewhat obsessive. Received Zyprexa p.r.n. Later in the day, he went to the day room. He is tolerating the Zoloft 100 mg a day. REVIEW OF SYSTEMS: Complains of difficulty with breathing, shortness of breath. No CV, , pulmonary, eye system symptoms on review. MENTAL STATUS EXAM: Oriented to himself situations. Speech is coherent, abstraction fair, computation impaired, language function intact, attention span short. Mood and affect somewhat withdrawn, anxious, obsessive. LABORATORY DATA: Reviewed. IMPRESSION: Major depressive disorder, rule out psychotic features; anxiety disorder, unspecified; mild cognitive impairment. PLAN: Continue current psychotropics with increase of Zoloft 100 mg a day, Periactin 2 mg at bedtime to help with appetite stimulation, Seroquel 100 mg at bedtime, Remeron 7.5 mg at bedtime. Consider changing Zoloft to Luvox if obsessive symptoms persist despite all of this. NORM BRISENO MD DR: ESTHER/joel JOB#: [id number] / [id number]
--- NOTE | 2019-04-25 00:48 | NUR ---
Nursing Note: Assumed care of pt. this evening, he was sitting out in the day room. He has been calm, compliant, and withdrawn to self. He has been compliant with taking his HS meds whole this evening. No agitation or aggression noted at this time.
[2019-04-25 06:10] VITALS: BP 104/70
[2019-04-25] MEDS: DOCUSATE SODIUM 100 MG CAPSULE PO SCH ×2 (08:08→21:00)
[2019-04-25] MEDS: FINASTERIDE 5 MG TABLET PO SCH (08:08)
[2019-04-25] MEDS: FAMOTIDINE 20 MG TABLET PO SCH (08:08)
[2019-04-25] MEDS: POLYETHYLENE GLYCOL 3350 17 GM PACKET. PO SCH (08:08)
[2019-04-25] MEDS: BUDESONIDE 0.5 MG/2 ML NEBU NEB SCH ×2 (11:18→22:48)
--- NOTE | 2019-04-25 12:58 | NUR ---
Patient was in his room during morning assessment and just finished breakfast. Mentioned that he was "too weak" to be out of bed. The nurse said that he can rest for a little bit but that he needed to be getting up and coming to group activities. No agitation noted, pt denies pain. Will continue to monitor.
[2019-04-25 16:24] VITALS: BP 91/50
[2019-04-25 16:26] VITALS: BP_SYST 135; BP_SYST 91; BP_DIAS 50; BP_DIAS 97
[2019-04-25] MEDS: metFORMIN XR 500 MG TAB.ER.24H PO SCH (17:18)
[2019-04-25] MEDS: MIRTAZAPINE 7.5 MG TABLET. PO SCH (20:29)
[2019-04-25] MEDS: QUEtiapine 100 MG TABLET. PO SCH (20:29)
[2019-04-25] MEDS: CYPROHEPTADINE 4 MG TABLET. PO SCH (20:29)
[2019-04-25] MEDS: TAMSULOSIN 0.4 MG CAP.ER.24H. PO SCH (20:30)
[2019-04-25] MEDS: ATORVASTATIN CALCIUM 10 MG TABLET. PO SCH (20:30)
[2019-04-25] MEDS: ACETAMINOPHEN 325 MG TABLET PO PRN (20:36)
--- NOTE | 2019-04-25 21:44 | PDOC ---
Exam Note: Alvaro Note: Please also refer to the separate dictated note~for this date of service dictated separately.~Patient seen individually. Discussed the patient with Nursing staff reviewed the chart.~Reviewed interim history and current functioning. Reviewed vital signs,~Labs/ Radiology~and current medications noted below. Continue current treatment with the changes noted in the dictated addendum note Assessment: Vital Signs/I&O: Vital Signs Date Time Temp Pulse Resp B/P (MAP) Pulse Ox O2 Delivery O2 Flow Rate FiO2 04/25/19 20:35 96 Room Air 04/25/19 16:26 98.4 51 18 91/50 (64) 04/22/19 01:15 2.0 I & O 04/24/19 04/24/19 04/25/19 14:59 22:59 06:59 Intake Total 720 ml 240 ml 120 ml Balance 720 ml 240 ml 120 ml Current Medications: I have reviewed the current psychotropics carefully including drug interactions. Risk benefit ratio favors no change other than as noted in my dictated progress note. 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
--- NOTE | 2019-04-26 00:20 | NUR ---
Nursing Note: Assumed care of pt. this evening, he was lying in his bed. He has been calm, anxious, and withdrawn to room and self. He voice c/o getting weaker and my breathing is fast. His respiration was WNL, lung sounds CTA, and no apparent sign of respiratory distress. He has been complaint with taking his HS meds whole this evening. He voice c/o generalize pain, given PRN med per OCT. No agitation or aggression noted at this time.
--- NOTE | 2019-04-26 03:57 | PN ---
DATE: 04/24/2019 PSYCHIATRIC PROGRESS NOTE This late entry 04/24/2019 covers elements not covered in my initial note. SUBJECTIVE: I met with the patient evening of 04/24/2019. The patient slept 7-1/4 hours previous night. He has been fixated on his oxygen and breathing treatments, somewhat anxious, restless, stating he is too weak to breathe. He is obsessive. REVIEW OF SYSTEMS: Positive for difficulty with his breathing. No CV, , eye, ENT system symptoms on review. He has vague somatic symptoms. MENTAL STATUS EXAM: Reasonably oriented. Speech is coherent, abstraction fair, computation impaired, language function intact, attention span short. Mood and affect showing improvement, still obsessive, anxious. LABORATORY DATA: Reviewed. No suicidal ideation. IMPRESSION: Unchanged from initial note. PLAN: Given the patient's marked obsessive thought processes, we will change the Zoloft to 100 mg a day to Luvox 50 mg a day for 3 days, then 75 mg a day. Maintain Seroquel, Remeron and Periactin for now. MAN Suman BRISENO MD DR: ESTHER/joel JOB#: [id number] / [id number]
[2019-04-26 06:35] VITALS: BP 90/58
[2019-04-26 06:42] LABS: BASO # 0.1 x10^3/uL (0.0-0.2); BASO % 1 % (0-3); EOS # 0.4 x10^3/uL (0.0-0.7); EOS % 6 % (0-3); HEMATOCRIT 43.3 % (39.0-53.0); HEMOGLOBIN 14.9 g/dL (13.0-17.5); LYMPH # 2.1 x10^3/uL (1.0-4.8); LYMPH % 37 % (24-48); MEAN CORPUSCULAR HEMOGLOBIN 30 pg (25-35); MEAN CORPUSCULAR HGB CONC 35 g/dL (31-37); MEAN CORPUSCULAR VOLUME 88 fL (79-100); MONO # 0.4 x10^3/uL (0.0-1.1); MONO % 6 % (0-9); NEUT # 2.8 x10^3uL (1.8-7.7); NEUT % 50 % (31-73); PLATELET COUNT 219 x10^3/uL (140-400); RED BLOOD COUNT 4.93 x10^6/uL (4.30-5.70); RED CELL DISTRIBUTION WIDTH 14.1 % (11.5-14.5); WHITE BLOOD COUNT 5.6 x10^3/uL (4.0-11.0)
[2019-04-26 06:54] LABS: ALBUMIN 3.1 g/dL (3.4-5.0); CREATININE 1.4 mg/dL (0.7-1.3); GFR 48.5; TOTAL BILIRUBIN 0.4 mg/dL (0.2-1.0); TOTAL PROTEIN 6.1 g/dL (6.4-8.2)
[2019-04-26] MEDS: FAMOTIDINE 20 MG TABLET PO SCH (09:00)
[2019-04-26] MEDS: DOCUSATE SODIUM 100 MG CAPSULE PO SCH ×2 (09:00→19:41)
[2019-04-26] MEDS: POLYETHYLENE GLYCOL 3350 17 GM PACKET. PO SCH (09:00)
[2019-04-26] MEDS: FINASTERIDE 5 MG TABLET PO SCH (09:00)
--- NOTE | 2019-04-26 09:41 | NUR ---
WEEKLY NOTE: Pt dtr Rosa participated in tx team via telephone. Pt is eating 75% and sleeping 7.5 hours on average. Pt needs encouragement to be out of his room and consistently reports feeling weak; therefore, he "cannot be out of his bed. Pt has poor group attendance and continues to decline attempts to have him participate. Pt dtr reports that in August, he fell off a ladder and broke his tailbone and has been slower since then. Pt was active and volunteered with many organizations. Pt has been in [facility] [place] for anxiety as he consistently reports that he cannot breathe. Pt has a hx of Bipolar D/O and Dr. Pierce at the [facility] is managing pt psychiatric medications, and pt sees Dr. Velez for neurology. Pt is on Luvox 50mg and will have an increase at 75mg on Tuesday the . Records will be requested from the [facility] and other physicians to see what is in pt history. ELOS is 10-14 days.
--- NOTE | 2019-04-26 10:03 | NUR ---
WEEKLY ACTIVITY THERAPY NOTE Date of Admission: 04/19/2019 Date of AT Assessment: 04/22/2019 Goal aimed:to increase relaxation techniques and leisure awareness Initial Goal:Pt. will participate in at least five Activity Therapy groups per week. Weekly progress towards goal: on track, participate in three activities, goal set half way through week Group participation level: minimal Weekly highlights: sang songs during Tuesday morning spiritual group Behaviors observed: requesting breathing treatments, fixated on oxygen, mostly withdrawn to room, anxious, woke up twice but declined invitation Plan: no change to goal Beneficial adaptations: invitations to group (agreed to be woken up if sleeping)
[2019-04-26] MEDS: BUDESONIDE 0.5 MG/2 ML NEBU NEB SCH ×2 (10:04→23:38)
--- NOTE | 2019-04-26 13:11 | NUR ---
Pt has been withdrawn to his room all morning. Pt out for meals with alot of coaxing. Pt states that he is too weak and cannot walk. Pt appears to be helpless and attention seeking.
[2019-04-26 16:26] VITALS: BP 110/68
[2019-04-26] MEDS: metFORMIN XR 500 MG TAB.ER.24H PO SCH (17:14)
[2019-04-26] MEDS: CYPROHEPTADINE 4 MG TABLET. PO SCH (19:39)
[2019-04-26] MEDS: ATORVASTATIN CALCIUM 10 MG TABLET. PO SCH (19:39)
[2019-04-26] MEDS: MIRTAZAPINE 7.5 MG TABLET. PO SCH (19:39)
[2019-04-26] MEDS: QUEtiapine 100 MG TABLET. PO SCH (19:41)
[2019-04-26] MEDS: TAMSULOSIN 0.4 MG CAP.ER.24H. PO SCH (19:41)
--- NOTE | 2019-04-26 20:20 | NUR ---
Pt in room cooperative with meds whole. He expresses concerns about his shortness of breath and says he is getting weaker everyday. O2 sat 95% and is moving around room without difficulty. 02 per nc on. No apparent respiratory distress noted.
--- NOTE | 2019-04-26 21:47 | PDOC ---
Exam Note: Alvaro Note: Please also refer to the separate dictated note~for this date of service dictated separately.~Patient seen individually. Discussed the patient with Nursing staff reviewed the chart.~Reviewed interim history and current functioning. Reviewed vital signs,~Labs/ Radiology~and current medications noted below. Continue current treatment with the changes noted in the dictated addendum note Assessment: Vital Signs/I&O: Vital Signs Date Time Temp Pulse Resp B/P (MAP) Pulse Ox O2 Delivery O2 Flow Rate FiO2 04/26/19 16:26 98.1 63 18 110/68 (82) 97 Room Air 04/22/19 01:15 2.0 I & O 04/25/19 04/25/19 04/26/19 14:59 22:59 06:59 Intake Total 600 ml 120 ml Balance 600 ml 120 ml Labs: Laboratory Tests Test 04/26/19 06:35 White Blood Count 5.6 x10^3/uL (4.0-11.0) Red Blood Count 4.93 x10^6/uL (4.30-5.70) Hemoglobin 14.9 g/dL (13.0-17.5) Hematocrit 43.3 % (39.0-53.0) Mean Corpuscular Volume 88 fL (79-100) Mean Corpuscular Hemoglobin 30 pg (25-35) Mean Corpuscular Hemoglobin Concent 35 g/dL (31-37) Red Cell Distribution Width 14.1 % (11.5-14.5) Platelet Count 219 x10^3/uL (140-400) Neutrophils (%) (Auto) 50 % (31-73) Lymphocytes (%) (Auto) 37 % (24-48) Monocytes (%) (Auto) 6 % (0-9) Eosinophils (%) (Auto) 6 % (0-3) H Basophils (%) (Auto) 1 % (0-3) Neutrophils # (Auto) 2.8 x10^3uL (1.8-7.7) Lymphocytes # (Auto) 2.1 x10^3/uL (1.0-4.8) Monocytes # (Auto) 0.4 x10^3/uL (0.0-1.1) Eosinophils # (Auto) 0.4 x10^3/uL (0.0-0.7) Basophils # (Auto) 0.1 x10^3/uL (0.0-0.2) Sodium Level 141 mmol/L (136-145) Potassium Level 4.0 mmol/L (3.5-5.1) Chloride Level 107 mmol/L (98-107) Carbon Dioxide Level 28 mmol/L (21-32) Anion Gap 6 (6-14) Blood Urea Nitrogen 23 mg/dL (8-26) Creatinine 1.4 mg/dL (0.7-1.3) H Estimated GFR (Cockcroft-Gault) 48.5 BUN/Creatinine Ratio 16 (6-20) Glucose Level 102 mg/dL (70-99) H Calcium Level 9.0 mg/dL (8.5-10.1) Total Bilirubin 0.4 mg/dL (0.2-1.0) Aspartate Amino Transferase (AST) 15 U/L (15-37) Alanine Aminotransferase (ALT) 26 U/L (16-63) Alkaline Phosphatase 61 U/L (46-116) Total Protein 6.1 g/dL (6.4-8.2) L Albumin 3.1 g/dL (3.4-5.0) L Albumin/Globulin Ratio 1.0 (1.0-1.7) Current Medications: I have reviewed the current psychotropics carefully including drug interactions. Risk benefit ratio favors no change other than as noted in my dictated progress note. Diagnosis: Problems: (1) Anxiety disorder (2) Impulse control disorder (3) Mild cognitive impairment (4) Major depressive disorder, recurrent episode (5) Personality disorder in adult NORM BRISENO MD Apr 26, 2019 21:47
[2019-04-27 06:10] VITALS: BP 108/52
[2019-04-27] MEDS: DOCUSATE SODIUM 100 MG CAPSULE PO SCH ×2 (08:21→20:08)
[2019-04-27] MEDS: POLYETHYLENE GLYCOL 3350 17 GM PACKET. PO SCH (08:22)
[2019-04-27] MEDS: FINASTERIDE 5 MG TABLET PO SCH (08:22)
[2019-04-27] MEDS: FAMOTIDINE 20 MG TABLET PO SCH (08:22)
--- NOTE | 2019-04-27 10:00 | NUR ---
Nursing Note: Pt continues to complain that he is becoming weaker every day. Encouraged pt to spend time out of his room. Pt was still resistant. Explained to pt that if he doesn't begin to work the program and attend groups then he will end up in a place that isn't as accommodating and wish that he were back at [facility]. Pt seemed to understand.
[2019-04-27] MEDS: BUDESONIDE 0.5 MG/2 ML NEBU NEB SCH ×2 (11:00→19:57)
[2019-04-27 16:41] VITALS: BP 96/66
--- NOTE | 2019-04-27 17:15 | NUR ---
Nursing Note; Daughter gave number and fax for [facility]. , , Request for records sent and acknowledgement received.
[2019-04-27] MEDS: metFORMIN XR 500 MG TAB.ER.24H PO SCH (17:26)
--- NOTE | 2019-04-27 17:30 | NUR ---
Nursing Note; Daughter left supplement and med to replace Lipitor. Med taken to Pharmacy.
--- NOTE | 2019-04-27 19:50 | NUR ---
Pt sitting quietly in day room watching TV. Social at times with a cheerful demeanor. Meds taken whole without difficulty.
[2019-04-27] MEDS: MIRTAZAPINE 7.5 MG TABLET. PO SCH (20:07)
[2019-04-27] MEDS: CYPROHEPTADINE 4 MG TABLET. PO SCH (20:07)
[2019-04-27] MEDS: ATORVASTATIN CALCIUM 10 MG TABLET. PO SCH (20:08)
[2019-04-27] MEDS: TAMSULOSIN 0.4 MG CAP.ER.24H. PO SCH (20:08)
[2019-04-27] MEDS: QUEtiapine 100 MG TABLET. PO SCH (20:08)
--- NOTE | 2019-04-27 21:52 | PDOC ---
Exam Note: Alvaro Note: Please also refer to the separate dictated note~for this date of service dictated separately.~Patient seen individually. Discussed the patient with Nursing staff reviewed the chart.~Reviewed interim history and current functioning. Reviewed vital signs,~Labs/ Radiology~and current medications noted below. Continue current treatment with the changes noted in the dictated addendum note Assessment: Vital Signs/I&O: Vital Signs Date Time Temp Pulse Resp B/P (MAP) Pulse Ox O2 Delivery O2 Flow Rate FiO2 04/27/19 19:58 98 Room Air 04/27/19 16:41 97.2 86 20 96/66 (76) 04/22/19 01:15 2.0 I & O 04/26/19 04/26/19 04/27/19 15:00 23:00 07:00 Intake Total 360 ml 240 ml 240 ml Balance 360 ml 240 ml 240 ml Current Medications: Meds: Current Medications Medications (Trade) Dose Ordered Sig/Bree Route PRN Reason Start Time Stop Time Status Last Admin Dose Admin Fluvoxamine Maleate (Luvox) 75 mg HS PO 04/27/19 21:00 04/27/19 20:11 I have reviewed the current psychotropics carefully including drug interactions. Risk benefit ratio favors no change other than as noted in my dictated progress note. Diagnosis: Problems: (1) Anxiety disorder (2) Impulse control disorder (3) Mild cognitive impairment (4) Major depressive disorder, recurrent episode (5) Personality disorder in adult NORM BRISENO MD Apr 27, 2019 21:52
--- NOTE | 2019-04-27 22:19 | PN ---
DATE: 04/25/2019 This late entry 04/25/2019 covers elements not covered in my initial note. SUBJECTIVE: I met with the patient evening of 04/25/2019. The patient slept 7-1/2 hours previous night. The patient has had no overt aggressive, disruptive behaviors, but very somatically preoccupied, anxious, obsessive. He complains of feeling weak, more so than before. He had a shower and states the weakness has worsened after the shower. REVIEW OF SYSTEMS: He has vague somatic symptoms. No CV, , pulmonary, eye system symptoms on review. MENTAL STATUS EXAM: Reasonably oriented. Speech is coherent, has some latency, low in volume. Abstraction fair, computation impaired, language function intact. Mood and affect somewhat withdrawn. LABORATORY DATA: Reviewed. IMPRESSION: Unchanged from initial note. PLAN: No change from initial note. MAN Suman BRISENO MD DR: ESTHER/joel JOB#: [id number] / [id number]
--- NOTE | 2019-04-27 22:41 | PN ---
DATE: 04/26/2019 PSYCHIATRIC PROGRESS NOTE This late entry 04/26/2019 covers elements not covered in my initial note. SUBJECTIVE: I met with the patient in the evening of 04/26/2019 at length and staffed at a treatment team meeting at a lengthy meeting with the patient's daughter, Rosa, and attending. Reviewed the patient's history of a diagnosis of bipolar disorder made by Dr. Christopher in the past. Reportedly, the patient had renal problems on lithium and it was discontinued at one point, he was on BuSpar and Wellbutrin and had multiple other psychotropic interventions for his bipolar disorder according to Rosa. He was also an inpatient at [facility]. We will get those records. When he has been highly functional, he was in the [employer] and working for the [employer]. In August, he had a fall and had a fracture of his tailbone and significantly deteriorated gradually since then. Daughter had concerns about some of his medications including she felt the Lipitor would cause a lowering of his blood pressure and did not want him on it. It appeared she was confused with lisinopril. I will defer all this to Dr. Drummond. He remains anxious, refused to eat and drink at times, complains of swallowing problems. Complains of intermittent constipation. Reportedly, he has a history of sarcoidosis. Slept 7 hours previous night. Appetite is 50-75% despite the above. REVIEW OF SYSTEMS: No CV, , pulmonary, eye system symptoms on review, but he has vague somatic symptoms. MENTAL STATUS EXAM: Reasonably oriented. Speech has some latency, coherent. Abstraction fair, computation impaired, language function intact, attention span short. Mood and affect withdrawn. LABORATORY DATA: Reviewed. IMPRESSION: Unchanged from initial note. PLAN: We will get the past records, continue current psychotropics. Consider mood stabilizers. He is on Luvox for his obsessive thought processes, he in place of the Zoloft. Continue Seroquel, Remeron and Periactin. MAN Suman BRISENO MD DR: ESTHER/joel JOB#: [id number] / [id number]
[2019-04-28 05:47] VITALS: BP 94/56
[2019-04-28] MEDS: POLYETHYLENE GLYCOL 3350 17 GM PACKET. PO SCH (07:57)
[2019-04-28] MEDS: metFORMIN XR 500 MG TAB.ER.24H PO SCH (07:57)
[2019-04-28] MEDS: FINASTERIDE 5 MG TABLET PO SCH (07:57)
[2019-04-28] MEDS: FAMOTIDINE 20 MG TABLET PO SCH (07:58)
[2019-04-28] MEDS: DOCUSATE SODIUM 100 MG CAPSULE PO SCH ×2 (07:58→20:35)
[2019-04-28] MEDS: BUDESONIDE 0.5 MG/2 ML NEBU NEB SCH ×2 (10:27→20:25)
[2019-04-28 15:45] VITALS: BP 93/57
--- NOTE | 2019-04-28 16:41 | NUR ---
Early A.M. c/o inability to walk, inability breathe, inability to take po meds. All tasks performed without distress. Ambulates halls and sits in dayroom if not approached or provided attention. Interacts at times with peers. A & O.
[2019-04-28] MEDS: TAMSULOSIN 0.4 MG CAP.ER.24H. PO SCH (20:34)
[2019-04-28] MEDS: MIRTAZAPINE 7.5 MG TABLET. PO SCH (20:34)
[2019-04-28] MEDS: ATORVASTATIN CALCIUM 10 MG TABLET. PO SCH (20:35)
[2019-04-28] MEDS: CYPROHEPTADINE 4 MG TABLET. PO SCH (20:35)
[2019-04-28] MEDS: QUEtiapine 100 MG TABLET. PO SCH (20:36)
--- NOTE | 2019-04-28 22:47 | PDOC ---
Exam Note: Alvaro Note: Please also refer to the separate dictated note~for this date of service dictated separately.~Patient seen individually. Discussed the patient with Nursing staff reviewed the chart.~Reviewed interim history and current functioning. Reviewed vital signs,~Labs/ Radiology~and current medications noted below. Continue current treatment with the changes noted in the dictated addendum note Assessment: Vital Signs/I&O: Vital Signs Date Time Temp Pulse Resp B/P (MAP) Pulse Ox O2 Delivery O2 Flow Rate FiO2 04/28/19 20:25 98 Room Air 04/28/19 15:45 98.2 76 20 93/57 (69) I & O 04/27/19 04/27/19 04/28/19 15:00 23:00 07:00 Intake Total 480 ml 600 ml Balance 480 ml 600 ml Current Medications: I have reviewed the current psychotropics carefully including drug interactions. Risk benefit ratio favors no change other than as noted in my dictated progress note. Diagnosis: Problems: (1) Anxiety disorder (2) Impulse control disorder (3) Mild cognitive impairment (4) Major depressive disorder, recurrent episode (5) Personality disorder in adult NORM BRISENO MD Apr 28, 2019 22:47
[2019-04-29 06:04] VITALS: BP 113/72
[2019-04-29] MEDS: BUDESONIDE 0.5 MG/2 ML NEBU NEB SCH ×2 (06:15→23:59)
[2019-04-29] MEDS: metFORMIN XR 500 MG TAB.ER.24H PO SCH (07:35)
[2019-04-29] MEDS: DOCUSATE SODIUM 100 MG CAPSULE PO SCH ×2 (07:35→19:01)
[2019-04-29] MEDS: FINASTERIDE 5 MG TABLET PO SCH (07:35)
[2019-04-29] MEDS: FAMOTIDINE 20 MG TABLET PO SCH (07:36)
[2019-04-29] MEDS: POLYETHYLENE GLYCOL 3350 17 GM PACKET. PO SCH (07:36)
[2019-04-29 15:47] VITALS: BP 121/82
[2019-04-29] MEDS: QUEtiapine 100 MG TABLET. PO SCH (19:01)
[2019-04-29] MEDS: ATORVASTATIN CALCIUM 10 MG TABLET. PO SCH (19:01)
[2019-04-29] MEDS: TAMSULOSIN 0.4 MG CAP.ER.24H. PO SCH (19:02)
[2019-04-29] MEDS: CYPROHEPTADINE 4 MG TABLET. PO SCH (19:02)
[2019-04-29] MEDS: MIRTAZAPINE 7.5 MG TABLET. PO SCH (19:02)
--- NOTE | 2019-04-29 21:03 | PDOC ---
Exam Note: Alvaro Note: Please also refer to the separate dictated note~for this date of service dictated separately.~Patient seen individually. Discussed the patient with Nursing staff reviewed the chart.~Reviewed interim history and current functioning. Reviewed vital signs,~Labs/ Radiology~and current medications noted below. Continue current treatment with the changes noted in the dictated addendum note Assessment: Vital Signs/I&O: Vital Signs Date Time Temp Pulse Resp B/P (MAP) Pulse Ox O2 Delivery O2 Flow Rate FiO2 04/29/19 15:47 97.6 73 16 121/82 (95) 96 04/29/19 06:15 Room Air I & O 04/28/19 04/28/19 04/29/19 15:00 23:00 07:00 Intake Total 480 ml 240 ml Balance 480 ml 240 ml Current Medications: I have reviewed the current psychotropics carefully including drug interactions. Risk benefit ratio favors no change other than as noted in my dictated progress note. Diagnosis: Problems: (1) Bipolar affective, mixed, severe (2) Bipolar 2 disorder (3) Personality disorder in adult (4) Major depressive disorder, recurrent episode (5) Mild cognitive impairment (6) Impulse control disorder (7) Anxiety disorder NORM BRISENO MD Apr 29, 2019 21:03
--- NOTE | 2019-04-29 23:02 | NUR ---
Nursing Note Pt is somatic, complains that he cannot do anything even walk even though he can walk and swallow. Asks for oxygen tubing, difficult to redirect. Talks about how sick he is as he wrings his hands and shakes. Visibly anxious this PM.
--- NOTE | 2019-04-30 01:08 | PN ---
DATE: 04/27/2019 PSYCHIATRIC PROGRESS NOTE This late entry, 04/27, covers elements not covered in my initial note. SUBJECTIVE: I met with the patient evening of 04/27. The patient slept 8-1/4 hours previous night. He remains extremely somatic, compliant with medications, did come out of the day room. Somatically very preoccupied with his breathing problems. REVIEW OF SYSTEMS: He has vague somatic symptoms. No CV, , eye, ENT system symptoms on review other than above. MENTAL STATUS EXAM: Oriented to himself and situation. Speech is coherent, abstraction fair, computation impaired, language function intact, attention span short. Mood and affect remains somewhat anxious, labile, withdrawn. LABORATORY DATA: Reviewed. IMPRESSION: Unchanged from initial note. Bipolar disorder, unspecified versus bipolar 2 disorder; anxiety disorder, unspecified; obsessive compulsive disorder. PLAN: Continue psychotropics from initial note. MAN Suman BRISENO MD DR: ESTHER/joel JOB#: [id number] / [id number]
--- NOTE | 2019-04-30 01:38 | PN ---
DATE: 04/28/2019 PSYCHIATRIC PROGRESS NOTE This late entry 04/28/2019 covers elements not covered in my initial note. SUBJECTIVE: I met with the patient evening of 04/28/2019. The patient slept 7 hours previous night. He remains somatically preoccupied, stating he cannot walk, needs a walker that he cannot urinate, but is otherwise alert, oriented, quite obsessive. He has vague somatic symptoms. No CV, , pulmonary, eye system symptoms on review. MENTAL STATUS EXAMINATION: Oriented reasonably. Speech is coherent. Met with him at length in his room. Abstraction fair, computation impaired. Language function intact, attention span short. Mood and affect somewhat withdrawn. LABORATORY DATA: Reviewed. IMPRESSION: Unchanged from initial note. PLAN: No change from initial note. MAN Suman BRISENO MD DR: ESTHER/joel JOB#: [id number] / [id number]
[2019-04-30 05:47] VITALS: BP 99/59
[2019-04-30] MEDS: FINASTERIDE 5 MG TABLET PO SCH (08:33)
[2019-04-30] MEDS: DOCUSATE SODIUM 100 MG CAPSULE PO SCH ×2 (08:33→20:26)
[2019-04-30] MEDS: POLYETHYLENE GLYCOL 3350 17 GM PACKET. PO SCH (08:34)
[2019-04-30] MEDS: FAMOTIDINE 20 MG TABLET PO SCH (08:34)
[2019-04-30] MEDS: BUDESONIDE 0.5 MG/2 ML NEBU NEB SCH ×2 (11:20→23:36)
--- NOTE | 2019-04-30 13:13 | NUR ---
Nursing Note: Message left for daughter to call in order to start Depakote 500 ER Q HS.
--- NOTE | 2019-04-30 14:34 | NUR ---
Nursing Note: Spoke w/ pt's Jessica Sanders and she agreed to the idea of starting pt on Depakote ER 500 mg; will inform Dr. Garcia when he rounds this evening. reported that pt took [place] 300mg from 1995 until approx 2015 when if was found to be affecting his kidneys.
[2019-04-30 16:34] VITALS: BP 139/85
[2019-04-30] MEDS: metFORMIN XR 500 MG TAB.ER.24H PO SCH (16:46)
--- NOTE | 2019-04-30 18:40 | NUR ---
Nursing Note: Spoke w/ Dr. Garcia about starting pt on Depakote ER but records reflect that pt is allergic to Depakote. Dr. Garcia found in pt's chart Dr. River Christopher MD, PHD had prescribed pt Depakote in 2017 with success. Also, spoke w/ pt's daughter who called to confirm w/ pt's and learned that pt is not allergic to Depakote. Will be removed from pt's allergy list and order for Depakote ER will be placed.
--- NOTE | 2019-04-30 19:22 | PDOC ---
Exam Note: Alvaro Note: Please also refer to the separate dictated note~for this date of service dictated separately.~Patient seen individually. Discussed the patient with Nursing staff reviewed the chart.~Reviewed interim history and current functioning. Reviewed vital signs,~Labs/ Radiology~and current medications noted below. Continue current treatment with the changes noted in the dictated addendum note Assessment: Vital Signs/I&O: Vital Signs Date Time Temp Pulse Resp B/P (MAP) Pulse Ox O2 Delivery O2 Flow Rate FiO2 04/30/19 16:34 98.0 88 20 139/85 (103) 94 04/30/19 11:21 Room Air 04/30/19 05:47 1.5 I & O 04/29/19 04/29/19 04/30/19 15:00 23:00 07:00 Intake Total 720 ml 120 ml 60 ml Balance 720 ml 120 ml 60 ml Current Medications: I have reviewed the current psychotropics carefully including drug interactions. Risk benefit ratio favors no change other than as noted in my dictated progress note. 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
[2019-04-30] MEDS: ATORVASTATIN CALCIUM 10 MG TABLET. PO SCH (20:18)
[2019-04-30] MEDS: CYPROHEPTADINE 4 MG TABLET. PO SCH (20:18)
[2019-04-30] MEDS: MIRTAZAPINE 7.5 MG TABLET. PO SCH (20:18)
[2019-04-30] MEDS: QUEtiapine 100 MG TABLET. PO SCH (20:19)
[2019-04-30] MEDS: TAMSULOSIN 0.4 MG CAP.ER.24H. PO SCH (20:19)
[2019-04-30] MEDS ORDERED: DIVALPROEX ER 500 MG TAB.ER.24H PO SCH (21:00)
--- NOTE | 2019-04-30 21:50 | NUR ---
Nursing Note: Assumed care of pt. this evening, he was sitting in the day room. He has been calm, withdrawn to self, somatic compliant, and a flat affect. Pt. still continue to verse compliant that he can't breath, no signs of respiratory distress noted at this time. Reassure pt. that he is breathing fine. He has been compliant with taking his HS meds whole this evening. No agitation or aggression noted at this time.
[2019-05-01 05:43] VITALS: BP 108/55
[2019-05-01] MEDS: FINASTERIDE 5 MG TABLET PO SCH (08:17)
[2019-05-01] MEDS: DOCUSATE SODIUM 100 MG CAPSULE PO SCH ×2 (08:17→20:21)
[2019-05-01] MEDS: FAMOTIDINE 20 MG TABLET PO SCH (08:18)
[2019-05-01] MEDS: POLYETHYLENE GLYCOL 3350 17 GM PACKET. PO SCH (08:18)
[2019-05-01] MEDS: BUDESONIDE 0.5 MG/2 ML NEBU NEB SCH ×2 (10:56→22:07)
--- NOTE | 2019-05-01 12:21 | NUR ---
Received a call for pt daughter concerning pt medications. Daughter reported pt was allergic to Depakote per pt medical record that she was reading through. Pt allergic response per report is nausea, diarrhea, and coughing. Pt only received one dose. Will give updated information to Dr Garcia.
[2019-05-01] MEDS: metFORMIN XR 500 MG TAB.ER.24H PO SCH (15:57)
[2019-05-01 16:25] VITALS: BP 108/67
--- NOTE | 2019-05-01 18:49 | PDOC ---
Exam Note: Alvaro Note: Please also refer to the separate dictated note~for this date of service dictated separately.~Patient seen individually. Discussed the patient with Nursing staff reviewed the chart.~Reviewed interim history and current functioning. Reviewed vital signs,~Labs/ Radiology~and current medications noted below. Continue current treatment with the changes noted in the dictated addendum note Assessment: Vital Signs/I&O: Vital Signs Date Time Temp Pulse Resp B/P (MAP) Pulse Ox O2 Delivery O2 Flow Rate FiO2 05/01/19 16:25 97.9 57 16 108/67 (81) 95 Room Air 04/30/19 05:47 1.5 I & O 04/30/19 04/30/19 05/01/19 15:00 23:00 07:00 Intake Total 720 ml 480 ml Balance 720 ml 480 ml Current Medications: Meds: Current Medications Medications (Trade) Dose Ordered Sig/Bree Route PRN Reason Start Time Stop Time Status Last Admin Dose Admin Divalproex Sodium (Depakote Er) 500 mg QHS PO 04/30/19 21:00 05/01/19 12:22 DC 04/30/19 20:19 I have reviewed the current psychotropics carefully including drug interactions. Risk benefit ratio favors no change other than as noted in my dictated progress note. Diagnosis: Problems: (1) Personality disorder in adult (2) Major depressive disorder, recurrent episode (3) Mild cognitive impairment (4) Impulse control disorder (5) Anxiety disorder (6) Bipolar 2 disorder (7) Bipolar affective, mixed, severe NORM BRISENO MD May 01, 2019 18:49
[2019-05-01] MEDS: MIRTAZAPINE 7.5 MG TABLET. PO SCH (20:20)
[2019-05-01] MEDS: TAMSULOSIN 0.4 MG CAP.ER.24H. PO SCH (20:21)
[2019-05-01] MEDS: CYPROHEPTADINE 4 MG TABLET. PO SCH (20:21)
[2019-05-01] MEDS: QUEtiapine 100 MG TABLET. PO SCH (20:21)
[2019-05-02] MEDS: NYSTATIN TOPICAL POWDER 15GM BOTTLE. TP SCH ×3 (00:11→20:17)
--- NOTE | 2019-05-02 00:23 | PN ---
DATE: 04/30/2019 PSYCHIATRIC PROGRESS NOTE. This late entry of 04/30/2019 covers the elements not covered in my initial note. SUBJECTIVE: I met with the patient in the evening of 04/30/2019. The patient slept 7-1/2 hours previous night. We had consulted the patient's family, and daughter about the Depakote as it was noted to be an allergy in his medications and in fact, he is not allergic to this and Depakote has been initiated. He has been coming out more to the dayroom, brighter in his affect, less anxious and less obsessive. REVIEW OF SYSTEMS: Still has some obsessiveness about needing breathing treatments, but less so than before. No CV, GI, system symptoms on review. MENTAL STATUS EXAM: The patient is reasonably oriented. Speech is coherent, less pressured. Abstraction fair, computation impaired, language function intact. Mood and affect is improved, less anxious. LABORATORY DATA: Reviewed. IMPRESSION: Unchanged from initial note. PLAN: No change from initial note and Depakote has been initiated. Maintain Luvox, Seroquel, Remeron, and Zyprexa p.r.n. NORM BRISENO MD DR: ESTHER/joel JOB#: [id number] / [id number]
--- NOTE | 2019-05-02 00:45 | PN ---
DATE: 04/29/2019 PSYCHIATRIC PROGRESS NOTE This late entry, 04/29, covers the elements not covered in my initial note. SUBJECTIVE: I met with the patient on the evening of 04/29. The patient slept 8-1/4 hours previous night. He remains quite somatically preoccupied, anxious with some mood lability. I have again reviewed very detailed and informative notes from Dr. Christopher, his psychiatrist of many years. The patient did very well on lithium in the past and then was on Depakote as a mood stabilizer and options for Trileptal and other mood stabilizers were delineated as well. He continues to have vague somatic symptoms, obsessive thinking about that he cannot breathe. REVIEW OF SYSTEMS: No CV, , pulmonary, eye systems symptoms other than above. MENTAL STATUS EXAM: Reasonably oriented. Speech is coherent, abstraction fair, computation impaired, language function intact, attention span short. Mood and affect remain somewhat anxious, labile. LABORATORY DATA: Reviewed. IMPRESSION: Bipolar disorder, mixed, bipolar 2 disorder, history of major depressive disorder; obsessive-compulsive disorder, anxiety disorder, unspecified. PLAN: Continue to adjust the Luvox currently 75 mg at bedtime. Maintain Remeron along with Zyprexa p.r.n. Start Depakote ER 500 mg p.o. at bedtime. Check CBC, CMP, valproic acid level, ammonia level in 3 days. Rest unchanged for now. MAN Suman BRISENO MD DR: ESTHER/joel JOB#: [id number] / [id number]
[2019-05-02 05:48] VITALS: BP 111/54
[2019-05-02] MEDS: FINASTERIDE 5 MG TABLET PO SCH (08:14)
[2019-05-02] MEDS: FAMOTIDINE 20 MG TABLET PO SCH (08:14)
[2019-05-02] MEDS: DOCUSATE SODIUM 100 MG CAPSULE PO SCH ×2 (08:14→20:15)
[2019-05-02] MEDS: POLYETHYLENE GLYCOL 3350 17 GM PACKET. PO SCH (08:14)
[2019-05-02] MEDS: OMEGA-3 FATTY ACIDS/FISH OIL 1,000 MG CAPSULE. PO SCH (08:56)
[2019-05-02] MEDS: BUDESONIDE 0.5 MG/2 ML NEBU NEB SCH ×2 (09:35→20:00)
--- NOTE | 2019-05-02 11:50 | NUR ---
Patient was in the dining room during rounding, when he looked at his medication in the med cup and said "I can't do it." With encouragement, pt took medications, allowed for morning assessment. No agitation noted, pt denies pain. Will continue to monitor.
[2019-05-02 16:21] VITALS: BP 97/62
[2019-05-02] MEDS: metFORMIN XR 500 MG TAB.ER.24H PO SCH (17:27)
[2019-05-02] MEDS: QUEtiapine 100 MG TABLET. PO SCH (20:14)
[2019-05-02] MEDS: TAMSULOSIN 0.4 MG CAP.ER.24H. PO SCH (20:14)
[2019-05-02] MEDS: CYPROHEPTADINE 4 MG TABLET. PO SCH (20:15)
[2019-05-02] MEDS: MIRTAZAPINE 7.5 MG TABLET. PO SCH (20:15)
--- NOTE | 2019-05-02 21:55 | PDOC ---
Exam Note: Alvaro Note: Please also refer to the separate dictated note~for this date of service dictated separately.~Patient seen individually. Discussed the patient with Nursing staff reviewed the chart.~Reviewed interim history and current functioning. Reviewed vital signs,~Labs/ Radiology~and current medications noted below. Continue current treatment with the changes noted in the dictated addendum note Assessment: Vital Signs/I&O: Vital Signs Date Time Temp Pulse Resp B/P (MAP) Pulse Ox O2 Delivery O2 Flow Rate FiO2 05/02/19 20:30 98 Room Air 05/02/19 16:21 97.2 69 20 97/62 (74) 04/30/19 05:47 1.5 I & O 05/01/19 05/01/19 05/02/19 15:00 23:00 07:00 Intake Total 600 ml 200 ml 120 ml Balance 600 ml 200 ml 120 ml Current Medications: Meds: Current Medications Medications (Trade) Dose Ordered Sig/Bree Route PRN Reason Start Time Stop Time Status Last Admin Dose Admin Fish Oil (Fish Oil) 1,000 mg DAILY PO 05/02/19 09:00 05/02/19 08:56 I have reviewed the current psychotropics carefully including drug interactions. Risk benefit ratio favors no change other than as noted in my dictated progress note. Diagnosis: Problems: (1) Bipolar affective, mixed, severe (2) Bipolar 2 disorder (3) Anxiety disorder (4) Impulse control disorder (5) Mild cognitive impairment (6) Major depressive disorder, recurrent episode (7) Personality disorder in adult NORM BRISENO MD May 02, 2019 21:55
--- NOTE | 2019-05-03 00:12 | NUR ---
Last evening pt was social and in seemed in good spirits. Talked with nurse about his [employer] career and did not focus on his health as he did last week. Meds taken without issue and pt offered no complaints. No behaviors observed.
--- NOTE | 2019-05-03 02:37 | PN ---
DATE: 05/01/2019 PSYCHIATRIC PROGRESS NOTE This late entry 05/01/2019 covers elements not covered in my initial note. SUBJECTIVE: I met with the patient in the evening of 05/01/2019. The patient slept 7-1/4 hours previous night. His daughter, Phyllis indicated that he was unable to tolerate Depakote in the past due to cough for which they have to take him to the ER and we will go ahead and stop the Depakote. We will go ahead and start him on Trileptal 300 mg p.o. at bedtime as a mood stabilizer. He continues to have vague somatic symptoms mainly related to breathing problems. No CV, GI, , eye system symptoms on review. MENTAL STATUS EXAM: Reasonably oriented. Speech is coherent, abstraction fair, computation impaired, language function intact, attention span short. He is somewhat obsessed about his bowels. LABORATORY DATA: Reviewed. IMPRESSION: Unchanged from initial note. PLAN: Start the Trileptal as noted. Continue Luvox and rest of the psychotropics unchanged. NORM BRISENO MD DR: ESTHER/joel JOB#: [id number] / [id number]
[2019-05-03 06:39] VITALS: BP 108/53
[2019-05-03 06:41] LABS: ALBUMIN 3.4 g/dL (3.4-5.0); CALCIUM 9.1 mg/dL (8.5-10.1); CREATININE 1.3 mg/dL (0.7-1.3); GFR 52.7; POTASSIUM 4.1 mmol/L (3.5-5.1); TOTAL BILIRUBIN 0.5 mg/dL (0.2-1.0); TOTAL PROTEIN 6.7 g/dL (6.4-8.2)
[2019-05-03 06:47] LABS: BASO % 1 % (0-3); EOS # 0.4 x10^3/uL (0.0-0.7); EOS % 5 % (0-3); HEMATOCRIT 47.7 % (39.0-53.0); LYMPH # 2.5 x10^3/uL (1.0-4.8); LYMPH % 36 % (24-48); MEAN CORPUSCULAR HEMOGLOBIN 30 pg (25-35); MEAN CORPUSCULAR HGB CONC 34 g/dL (31-37); MEAN CORPUSCULAR VOLUME 91 fL (79-100); MONO # 0.5 x10^3/uL (0.0-1.1); MONO % 7 % (0-9); NEUT # 3.6 x10^3uL (1.8-7.7); NEUT % 52 % (31-73); PLATELET COUNT 219 x10^3/uL (140-400); RED BLOOD COUNT 5.27 x10^6/uL (4.30-5.70); RED CELL DISTRIBUTION WIDTH 14.4 % (11.5-14.5); WHITE BLOOD COUNT 6.9 x10^3/uL (4.0-11.0)
[2019-05-03 08:12] VITALS: BP 109/68
[2019-05-03] MEDS: FAMOTIDINE 20 MG TABLET PO SCH (08:14)
[2019-05-03] MEDS: POLYETHYLENE GLYCOL 3350 17 GM PACKET. PO SCH (08:14)
[2019-05-03] MEDS: DOCUSATE SODIUM 100 MG CAPSULE PO SCH ×2 (08:14→19:58)
[2019-05-03] MEDS: metFORMIN XR 500 MG TAB.ER.24H PO SCH (08:14)
[2019-05-03] MEDS: OMEGA-3 FATTY ACIDS/FISH OIL 1,000 MG CAPSULE. PO SCH (08:14)
[2019-05-03] MEDS: FINASTERIDE 5 MG TABLET PO SCH (08:14)
--- NOTE | 2019-05-03 10:10 | NUR ---
WEEKLY NOTE: Pt has poor eating habits and sleeping over 7 hours a night. Pt is compliant with medications and has somatic complaints throughout the day. Pt can be aggressive with staff when they attempt to stop him from getting into his room. Pt has started Trileptal 300mg q HS and will continue to see how that goes. Discharge for the latter part of next week.
--- NOTE | 2019-05-03 10:15 | NUR ---
WEEKLY ACTIVITY THERAPY NOTE Date of Admission: 04/19/2019 Date of AT Assessment: 04/22/2019 Goal aimed:to increase relaxation techniques and leisure awareness Initial Goal:Pt. will participate in at least five Activity Therapy groups per week. Weekly progress towards goal: achieved, /5 Group participation level: moderate, increasing as week goes on Weekly highlights: singing along with karaoke-no concerns with breathing, fully engaged in high/low card game and explaining rules to others Behaviors observed: withdrawn to room more earlier in the week, restless/anxious when in group, wanting to go to bed, wanting a breathing treatment Plan: no change to goal Beneficial adaptations: invitations to group (agreed to be woken up if sleeping)
[2019-05-03] MEDS: BUDESONIDE 0.5 MG/2 ML NEBU NEB SCH ×2 (11:49→20:01)
[2019-05-03] MEDS: NYSTATIN TOPICAL POWDER 15GM BOTTLE. TP SCH ×2 (14:39→19:57)
--- NOTE | 2019-05-03 14:50 | NUR ---
SHUBHAM faxed over information to the [facility] for review of pt case while on [facility]. Fax number is
--- NOTE | 2019-05-03 15:06 | NUR ---
Nursing Note: Pt c/o feeling weak and that he probably couldn't make it back to his room after breakfast this morning. Pt seen sitting at table during group with SHUBHAM Deleon. After lunch pt was in his room and complained again to this nurse that he is very weak and that it was his 84rd birthday and he did not think that he could make it out of his room if his daughter and were to show up to celebrate his birthday. Offered to measure pt's O2 but pt stated, "It will probably say that I am fine." Reminded pt that he needs to work on thinking more positive thoughts and spend time out of his room so that he doesn't become weaker. Pt continued to focus on negative thoughts and to believe that he was getting worse. Unable to redirect pt. PRN given. Will continue to monitor.
[2019-05-03 15:58] VITALS: BP 99/64
--- NOTE | 2019-05-03 16:30 | NUR ---
SW was addressed by pt dtr who has concerns about pt behaviors today. Pt has reported during his visit that he cannot breathe and reports some concerns about being drowsy. Pt dtr questioned his medications in which SW informed pt dtr that she would have to talk to nursing about that. SW did give pt dtr an update as to the last 48 hours and his behaviors. Pt only appears to be become combative when staff prevents him from going to his room. Pt dtr did confirm that pt would be returning home as it is her mother's wishes. SW mentioned increasing resources to help keep him successful at home and safe.
[2019-05-03] MEDS: TAMSULOSIN 0.4 MG CAP.ER.24H. PO SCH (19:57)
[2019-05-03] MEDS: QUEtiapine 100 MG TABLET. PO SCH (19:58)
[2019-05-03] MEDS: MIRTAZAPINE 7.5 MG TABLET. PO SCH (19:58)
[2019-05-03] MEDS: CYPROHEPTADINE 4 MG TABLET. PO SCH (19:59)
--- NOTE | 2019-05-03 21:10 | PDOC ---
Exam Note: Alvaro Note: Please also refer to the separate dictated note~for this date of service dictated separately.~Patient seen individually. Discussed the patient with Nursing staff reviewed the chart.~Reviewed interim history and current functioning. Reviewed vital signs,~Labs/ Radiology~and current medications noted below. Continue current treatment with the changes noted in the dictated addendum note Assessment: Vital Signs/I&O: Vital Signs Date Time Temp Pulse Resp B/P (MAP) Pulse Ox O2 Delivery O2 Flow Rate FiO2 05/03/19 20:02 99 Room Air 05/03/19 15:58 98.3 61 16 99/64 (76) 04/30/19 05:47 1.5 I & O 05/02/19 05/02/19 05/03/19 14:59 22:59 06:59 Intake Total 720 ml 240 ml 240 ml Balance 720 ml 240 ml 240 ml Labs: Laboratory Tests Test 05/03/19 06:12 White Blood Count 6.9 x10^3/uL (4.0-11.0) Red Blood Count 5.27 x10^6/uL (4.30-5.70) Hemoglobin 16.0 g/dL (13.0-17.5) Hematocrit 47.7 % (39.0-53.0) Mean Corpuscular Volume 91 fL (79-100) Mean Corpuscular Hemoglobin 30 pg (25-35) Mean Corpuscular Hemoglobin Concent 34 g/dL (31-37) Red Cell Distribution Width 14.4 % (11.5-14.5) Platelet Count 219 x10^3/uL (140-400) Neutrophils (%) (Auto) 52 % (31-73) Lymphocytes (%) (Auto) 36 % (24-48) Monocytes (%) (Auto) 7 % (0-9) Eosinophils (%) (Auto) 5 % (0-3) H Basophils (%) (Auto) 1 % (0-3) Neutrophils # (Auto) 3.6 x10^3uL (1.8-7.7) Lymphocytes # (Auto) 2.5 x10^3/uL (1.0-4.8) Monocytes # (Auto) 0.5 x10^3/uL (0.0-1.1) Eosinophils # (Auto) 0.4 x10^3/uL (0.0-0.7) Basophils # (Auto) 0.0 x10^3/uL (0.0-0.2) Sodium Level 142 mmol/L (136-145) Potassium Level 4.1 mmol/L (3.5-5.1) Chloride Level 105 mmol/L (98-107) Carbon Dioxide Level 27 mmol/L (21-32) Anion Gap 10 (6-14) Blood Urea Nitrogen 29 mg/dL (8-26) H Creatinine 1.3 mg/dL (0.7-1.3) Estimated GFR (Cockcroft-Gault) 52.7 BUN/Creatinine Ratio 22 (6-20) H Glucose Level 101 mg/dL (70-99) H Calcium Level 9.1 mg/dL (8.5-10.1) Total Bilirubin 0.5 mg/dL (0.2-1.0) Aspartate Amino Transferase (AST) 11 U/L (15-37) L Alanine Aminotransferase (ALT) 19 U/L (16-63) Alkaline Phosphatase 66 U/L (46-116) Total Protein 6.7 g/dL (6.4-8.2) Albumin 3.4 g/dL (3.4-5.0) Albumin/Globulin Ratio 1.0 (1.0-1.7) Current Medications: I have reviewed the current psychotropics carefully including drug interactions. Risk benefit ratio favors no change other than as noted in my dictated progress note. Diagnosis: Problems: (1) Bipolar affective, mixed, severe (2) Bipolar 2 disorder (3) Anxiety disorder (4) Impulse control disorder (5) Mild cognitive impairment (6) Major depressive disorder, recurrent episode (7) Personality disorder in adult NORM BRISENO MD May 03, 2019 21:10
[2019-05-04 06:32] VITALS: BP 102/65
[2019-05-04] MEDS: FINASTERIDE 5 MG TABLET PO SCH (08:25)
[2019-05-04] MEDS: OMEGA-3 FATTY ACIDS/FISH OIL 1,000 MG CAPSULE. PO SCH (08:25)
[2019-05-04] MEDS: FAMOTIDINE 20 MG TABLET PO SCH (08:25)
[2019-05-04] MEDS: DOCUSATE SODIUM 100 MG CAPSULE PO SCH ×2 (08:25→20:56)
[2019-05-04] MEDS: POLYETHYLENE GLYCOL 3350 17 GM PACKET. PO SCH (08:26)
--- NOTE | 2019-05-04 09:30 | NUR ---
Nursing Note: Pt continues to complain that he is becoming weaker every day. Pt compliant w/ meds taken whole. Encouraged pt to spend time out of his room and to participate in groups.
[2019-05-04] MEDS: BUDESONIDE 0.5 MG/2 ML NEBU NEB SCH ×2 (11:45→20:10)
[2019-05-04] MEDS: NYSTATIN TOPICAL POWDER 15GM BOTTLE. TP SCH ×2 (13:44→20:58)
[2019-05-04 15:52] VITALS: BP 129/75
[2019-05-04] MEDS: metFORMIN XR 500 MG TAB.ER.24H PO SCH (17:00)
[2019-05-04] MEDS: TAMSULOSIN 0.4 MG CAP.ER.24H. PO SCH (20:57)
[2019-05-04] MEDS: MIRTAZAPINE 7.5 MG TABLET. PO SCH (20:57)
[2019-05-04] MEDS: QUEtiapine 100 MG TABLET. PO SCH (20:58)
[2019-05-04] MEDS: CYPROHEPTADINE 4 MG TABLET. PO SCH (20:58)
--- NOTE | 2019-05-04 22:03 | PDOC ---
Exam Note: Alvaro Note: Please also refer to the separate dictated note~for this date of service dictated separately.~Patient seen individually. Discussed the patient with Nursing staff reviewed the chart.~Reviewed interim history and current functioning. Reviewed vital signs,~Labs/ Radiology~and current medications noted below. Continue current treatment with the changes noted in the dictated addendum note Assessment: Vital Signs/I&O: Vital Signs Date Time Temp Pulse Resp B/P (MAP) Pulse Ox O2 Delivery O2 Flow Rate FiO2 05/04/19 20:11 95 Room Air 05/04/19 15:52 98.2 93 20 129/75 (93) 05/04/19 06:32 2.0 I & O 05/03/19 05/03/19 05/04/19 14:59 22:59 06:59 Intake Total 720 ml 480 ml 120 ml Balance 720 ml 480 ml 120 ml Current Medications: Meds: Current Medications Medications (Trade) Dose Ordered Sig/Bree Route PRN Reason Start Time Stop Time Status Last Admin Dose Admin Oxcarbazepine (Trileptal) 300 mg BID PO 05/04/19 21:00 05/04/19 20:58 I have reviewed the current psychotropics carefully including drug interactions. Risk benefit ratio favors no change other than as noted in my dictated progress note. Diagnosis: Problems: (1) Bipolar affective, mixed, severe (2) Bipolar 2 disorder (3) Anxiety disorder (4) Impulse control disorder (5) Mild cognitive impairment (6) Major depressive disorder, recurrent episode (7) Personality disorder in adult NORM BRISENO MD May 04, 2019 22:03
--- NOTE | 2019-05-05 02:39 | PN ---
DATE: 05/03/2019 PSYCHIATRIC PROGRESS NOTE This late entry 05/03/2019 covers elements not covered in my initial note. SUBJECTIVE: I met with the patient evening of 05/03/2019 and staffed treatment team meeting with the entire team in the morning. The patient is sleeping average 7 hours, slept 8-1/4 hours previous night, alert, oriented reasonably. At one time, he was quite agitated, anxious, pushed a nursing staff when she was trying to assist him. The day before at intermittently, he was at the nursing station, anxious, obsessive, more so in the evening and a little worse than before. REVIEW OF SYSTEMS: Positive for breathing problems. No CV, GI, , ENT system symptoms on review. MENTAL STATUS EXAMINATION: Reasonably oriented. Speech is coherent, little pressured at times. Abstraction fair, computation impaired, language function intact, attention span short. Mood and affect remain somewhat anxious, labile. LABORATORY DATA: Reviewed. IMPRESSION: Unchanged from initial note. PLAN: No change from initial note. NORM BRISENO MD DR: ETSHER/joel JOB#: [id number] / [id number]
--- NOTE | 2019-05-05 04:14 | PN ---
DATE: 05/02/2019 PSYCHIATRIC PROGRESS NOTE This late entry of 05/02/2019 covers elements not covered in my initial note. SUBJECTIVE: I met with the patient in evening of 05/02/2019. The patient slept 7 hours previous night. He has been started on fish oil for his raised triglycerides. He is less anxious and obsessive about breathing treatment and is tolerating Trileptal 300 mg p.o. at bedtime initiated for his bipolar disorder. REVIEW OF SYSTEMS: Less obsessed about the breathing treatment. No CV, , eye, ENT system symptoms on review. He has vague somatic symptoms. MENTAL STATUS EXAM: Reasonably oriented. Speech is coherent, at times pressured. Abstraction fair, computation impaired, language function intact, attention span short. Mood and affect somewhat obsessive and anxious. LABORATORY DATA: Reviewed. IMPRESSION: Bipolar disorder, unspecified; obsessive-compulsive disorder, anxiety disorder, unspecified. Rest unchanged. PLAN: No change from initial note. Maintain current psychotropics per initial note. MAN Suman BRISENO MD DR: ESTHER/joel JOB#: [id number] / [id number]
[2019-05-05 06:00] VITALS: BP 104/61
[2019-05-05] MEDS: POLYETHYLENE GLYCOL 3350 17 GM PACKET. PO SCH (08:42)
[2019-05-05] MEDS: FINASTERIDE 5 MG TABLET PO SCH (08:42)
[2019-05-05] MEDS: OMEGA-3 FATTY ACIDS/FISH OIL 1,000 MG CAPSULE. PO SCH (08:43)
[2019-05-05] MEDS: DOCUSATE SODIUM 100 MG CAPSULE PO SCH ×2 (08:43→20:21)
[2019-05-05] MEDS: FAMOTIDINE 20 MG TABLET PO SCH (08:43)
[2019-05-05] MEDS: BUDESONIDE 0.5 MG/2 ML NEBU NEB SCH ×2 (13:18→20:03)
[2019-05-05 16:02] VITALS: BP 110/73
--- NOTE | 2019-05-05 16:30 | NUR ---
Slept in bed in a.m. A & O. Encouraged to get out of room. Social with peers in day room in afternoon. Continues with somatic complaints if questioned. Otherwise, compliant and cooperative with cares.
[2019-05-05] MEDS: NYSTATIN TOPICAL POWDER 15GM BOTTLE. TP SCH ×2 (16:44→20:22)
--- NOTE | 2019-05-05 16:45 | NUR ---
Nystatin powder refused by pt. at this time, states he uses it in his groin area. He preferred to put it on after his shower tonight. Informed him the powder would be available for the staff when he needed it this evening.
[2019-05-05] MEDS: metFORMIN XR 500 MG TAB.ER.24H PO SCH (16:59)
[2019-05-05] MEDS: QUEtiapine 100 MG TABLET. PO SCH (20:21)
[2019-05-05] MEDS: MIRTAZAPINE 7.5 MG TABLET. PO SCH (20:21)
[2019-05-05] MEDS: CYPROHEPTADINE 4 MG TABLET. PO SCH (20:21)
[2019-05-05] MEDS: TAMSULOSIN 0.4 MG CAP.ER.24H. PO SCH (20:22)
--- NOTE | 2019-05-05 22:43 | PDOC ---
Exam Note: Alvaro Note: Please also refer to the separate dictated note~for this date of service dictated separately.~Patient seen individually. Discussed the patient with Nursing staff reviewed the chart.~Reviewed interim history and current functioning. Reviewed vital signs,~Labs/ Radiology~and current medications noted below. Continue current treatment with the changes noted in the dictated addendum note Assessment: Vital Signs/I&O: Vital Signs Date Time Temp Pulse Resp B/P (MAP) Pulse Ox O2 Delivery O2 Flow Rate FiO2 05/05/19 20:06 96 Room Air 05/05/19 16:02 98.0 69 18 110/73 (85) 05/04/19 06:32 2.0 I & O 05/04/19 05/04/19 05/05/19 15:00 23:00 07:00 Intake Total 960 ml 600 ml Balance 960 ml 600 ml Current Medications: I have reviewed the current psychotropics carefully including drug interactions. Risk benefit ratio favors no change other than as noted in my dictated progress note. Diagnosis: Problems: (1) Bipolar affective, mixed, severe (2) Bipolar 2 disorder (3) Anxiety disorder (4) Impulse control disorder (5) Mild cognitive impairment (6) Major depressive disorder, recurrent episode (7) Personality disorder in adult NORM BRISENO MD May 05, 2019 22:43
--- NOTE | 2019-05-05 23:56 | NUR ---
Pt located in his room. Compliant with shower and medications. Immediately after taking medications, pt stated he was going to need more medications because he couldn't fall asleep. Pt instructed to wait awhile and let the medications work. Will continue to monitor.
[2019-05-06 05:46] VITALS: BP 109/54
[2019-05-06] MEDS: POLYETHYLENE GLYCOL 3350 17 GM PACKET. PO SCH (08:03)
[2019-05-06] MEDS: OMEGA-3 FATTY ACIDS/FISH OIL 1,000 MG CAPSULE. PO SCH (08:04)
[2019-05-06] MEDS: FINASTERIDE 5 MG TABLET PO SCH (08:04)
[2019-05-06] MEDS: DOCUSATE SODIUM 100 MG CAPSULE PO SCH ×2 (08:04→19:57)
[2019-05-06] MEDS: FAMOTIDINE 20 MG TABLET PO SCH (08:04)
[2019-05-06] MEDS: NYSTATIN TOPICAL POWDER 15GM BOTTLE. TP SCH ×2 (09:00→19:59)
--- NOTE | 2019-05-06 09:29 | NUR ---
Up for breakfast, then returned to bed for nap. Lying awake for assessment. A & O. Continues to check on when RT will give him his breathing tx. No respiratory distress noted. Focuses on inability to swallow or take meds, but takes them without observed difficulty.
[2019-05-06] MEDS: BUDESONIDE 0.5 MG/2 ML NEBU NEB SCH (11:22)
[2019-05-06] MEDS: IPRATRPIUM/ALBUTEROL 0.5/2.5MG 3 ML NEBU. NEB PRN (11:28)
--- NOTE | 2019-05-06 11:58 | NUR ---
Increasingly attention seeking, focusing on breathing, now thinking he needs a CPAP because his room mate has one, and is mirroring symptoms. Reports he has used one at home. Refused nystatin powder when offered.
[2019-05-06 16:08] VITALS: BP 99/60
[2019-05-06] MEDS: metFORMIN XR 500 MG TAB.ER.24H PO SCH (17:05)
[2019-05-06] MEDS: MIRTAZAPINE 7.5 MG TABLET. PO SCH (19:57)
[2019-05-06] MEDS: QUEtiapine 100 MG TABLET. PO SCH (19:57)
[2019-05-06] MEDS: CYPROHEPTADINE 4 MG TABLET. PO SCH (19:58)
[2019-05-06] MEDS: TAMSULOSIN 0.4 MG CAP.ER.24H. PO SCH (19:59)
--- NOTE | 2019-05-06 22:25 | PDOC ---
Exam Note: Alvaro Note: Please also refer to the separate dictated note~for this date of service dictated separately.~Patient seen individually. Discussed the patient with Nursing staff reviewed the chart.~Reviewed interim history and current functioning. Reviewed vital signs,~Labs/ Radiology~and current medications noted below. Continue current treatment with the changes noted in the dictated addendum note Assessment: Vital Signs/I&O: Vital Signs Date Time Temp Pulse Resp B/P (MAP) Pulse Ox O2 Delivery O2 Flow Rate FiO2 05/06/19 21:05 96 Room Air 05/06/19 16:08 97.4 56 18 99/60 (73) 05/04/19 06:32 2.0 I & O 05/05/19 05/05/19 05/06/19 15:00 23:00 07:00 Intake Total 960 ml 240 ml 120 ml Balance 960 ml 240 ml 120 ml Current Medications: Meds: Current Medications Medications (Trade) Dose Ordered Sig/Bree Route PRN Reason Start Time Stop Time Status Last Admin Dose Admin Fluvoxamine Maleate (Luvox) 100 mg HS PO 05/06/19 21:00 05/08/19 21:01 05/06/19 19:59 I have reviewed the current psychotropics carefully including drug interactions. Risk benefit ratio favors no change other than as noted in my dictated progress note. Diagnosis: Problems: (1) Bipolar affective, mixed, severe (2) Bipolar 2 disorder (3) Anxiety disorder (4) Impulse control disorder (5) Mild cognitive impairment (6) Major depressive disorder, recurrent episode (7) Personality disorder in adult NORM BRISENO MD May 06, 2019 22:25
--- NOTE | 2019-05-06 22:59 | PN ---
DATE: 05/05/2019 PSYCHIATRIC PROGRESS NOTE This late entry 05/05/2019 covers elements not covered in my initial note. SUBJECTIVE: I met with the patient evening of 05/05/2019. The patient slept 8-3/4 hours previous night. The patient remains somewhat anxious, obsessive about his breathing, but no CV, , eye system symptoms on review. MENTAL STATUS EXAM: Reasonably oriented. Speech is coherent, abstraction fair, computation impaired, language function intact, attention span short. Mood and affect somewhat dysphoric and anxious. LABORATORY DATA: Reviewed. IMPRESSION: Unchanged from initial note. PLAN: Increase Luvox from 75 mg at bedtime to 100 mg at bedtime. Continue Remeron and Trileptal has been increased. MAN Suman BRISENO MD DR: ESTHER/joel JOB#: [id number] / [id number]
--- NOTE | 2019-05-06 23:03 | PN ---
DATE: 05/04/2019 PSYCHIATRIC PROGRESS NOTE This late entry, 05/04, covers elements not covered in my initial note. SUBJECTIVE: I met with the patient evening of 05/04. The patient slept 8-1/4 hours previous night. He has been quite somatically preoccupied with his breathing and I processed this with him. REVIEW OF SYSTEMS: As above. No CV, GI, , eye system symptoms on review. MENTAL STATUS EXAM: Reasonably oriented. Speech is coherent, a little pressured at times, obsessive, abstraction fair, computation impaired, language function intact. Mood and affect still depressed, anxious. IMPRESSION: Unchanged from initial note. PLAN: Increase Trileptal from 300 mg at bedtime to 300 mg b.i.d. as a mood stabilizer. Rest unchanged for now. Luvox has been adjusted, may need to increase further. MAN Suman BRISENO MD DR: ESTHER/joel JOB#: [id number] / [id number]
--- NOTE | 2019-05-06 23:23 | NUR ---
Pt withdrawn to room all night. Pt continues to be somatic and attention seeking. Pt given his medications and states "I don't think I can do it." When asked how his day was, pt states "every day is getting worse...I keep getting weaker and weaker." Pt then attempts to show this nurse how he cannot walk anymore and exaggeratedly "falls" into the wall. Will continue to monitor.
[2019-05-07 05:52] VITALS: BP 103/66
[2019-05-07] MEDS: BUDESONIDE 0.5 MG/2 ML NEBU NEB SCH ×3 (05:59→23:04)
--- NOTE | 2019-05-07 09:00 | NUR ---
Nursing Note: Pt compliant w/ meds taken whole, somatic, preoccupied. States that he is getting weaker every day despite the fact that his vitals are fine and his physical condition has not change since admit.
[2019-05-07] MEDS: FINASTERIDE 5 MG TABLET PO SCH (09:34)
[2019-05-07] MEDS: FAMOTIDINE 20 MG TABLET PO SCH (09:34)
[2019-05-07] MEDS: OMEGA-3 FATTY ACIDS/FISH OIL 1,000 MG CAPSULE. PO SCH (09:34)
[2019-05-07] MEDS: DOCUSATE SODIUM 100 MG CAPSULE PO SCH ×2 (09:34→20:17)
[2019-05-07] MEDS: POLYETHYLENE GLYCOL 3350 17 GM PACKET. PO SCH (09:34)
[2019-05-07] MEDS: NYSTATIN TOPICAL POWDER 15GM BOTTLE. TP SCH ×2 (09:34→20:17)
[2019-05-07 15:36] VITALS: BP 131/72
[2019-05-07] MEDS: metFORMIN XR 500 MG TAB.ER.24H PO SCH (17:03)
[2019-05-07] MEDS: TAMSULOSIN 0.4 MG CAP.ER.24H. PO SCH (20:16)
[2019-05-07] MEDS: CYPROHEPTADINE 4 MG TABLET. PO SCH (20:16)
[2019-05-07] MEDS: MIRTAZAPINE 7.5 MG TABLET. PO SCH (20:16)
[2019-05-07] MEDS: QUEtiapine 100 MG TABLET. PO SCH (20:17)
--- NOTE | 2019-05-07 20:17 | NUR ---
Nursing Note: Pt compliant w/ meds taken whole, somatic, preoccupied. States that he is getting weaker by the minute, and short of breath. Vitals stable.
--- NOTE | 2019-05-07 21:46 | PDOC ---
Exam Note: Alvaro Note: Please also refer to the separate dictated note~for this date of service dictated separately.~Patient seen individually. Discussed the patient with Nursing staff reviewed the chart.~Reviewed interim history and current functioning. Reviewed vital signs,~Labs/ Radiology~and current medications noted below. Continue current treatment with the changes noted in the dictated addendum note Assessment: Vital Signs/I&O: Vital Signs Date Time Temp Pulse Resp B/P (MAP) Pulse Ox O2 Delivery O2 Flow Rate FiO2 05/07/19 20:40 99 Room Air 05/07/19 15:36 97.4 66 20 131/72 (91) 05/04/19 06:32 2.0 I & O 05/06/19 05/06/19 05/07/19 14:59 22:59 06:59 Intake Total 720 ml 360 ml Balance 720 ml 360 ml Current Medications: I have reviewed the current psychotropics carefully including drug interactions. Risk benefit ratio favors no change other than as noted in my dictated progress note. Diagnosis: Problems: (1) Bipolar affective, mixed, severe (2) Bipolar 2 disorder (3) Anxiety disorder (4) Impulse control disorder (5) Mild cognitive impairment (6) Major depressive disorder, recurrent episode (7) Personality disorder in adult NORM BRISENO MD May 07, 2019 21:46
--- NOTE | 2019-05-08 01:09 | PN ---
DATE: 05/06/2019 PSYCHIATRIC PROGRESS NOTE This late entry 05/06/2019 covers elements not covered in my initial note. SUBJECTIVE: I met with the patient in the evening of 05/06/2019. The patient slept 6-1/2 hours previous night. He continues to have somatic symptoms and breathing problems. His and daughter visited and he states visit was not good because of his breathing problems. His informed the nursing staff that he has been depressed since November of this year and prior to that, he was manic "all his life". REVIEW OF SYSTEMS: Positive for the breathing problems, tiredness. No energy. No specific ENT, integumentary system symptoms on review. MENTAL STATUS EXAM: Reasonably oriented. Speech is coherent, has some latency. Abstraction fair, computation impaired, language function intact, attention span short. He is quite obsessive. LABORATORY DATA: Reviewed. IMPRESSION: Bipolar disorder, mixed; obsessive-compulsive disorder; anxiety disorder, unspecified. Rest unchanged. PLAN: We will increase the Luvox to 125 mg a day after he has been on 100 mg for 3 days. Continue Remeron, Zyprexa, and Trileptal as a mood stabilizer 300 b.i.d. We may need to increase this. NORM BRISENO MD DR: ESTHER/joel JOB#: [id number] / [id number]
[2019-05-08 05:49] VITALS: BP 103/59
[2019-05-08] MEDS: FINASTERIDE 5 MG TABLET PO SCH (07:54)
[2019-05-08] MEDS: OMEGA-3 FATTY ACIDS/FISH OIL 1,000 MG CAPSULE. PO SCH (07:54)
[2019-05-08] MEDS: POLYETHYLENE GLYCOL 3350 17 GM PACKET. PO SCH (07:54)
[2019-05-08] MEDS: FAMOTIDINE 20 MG TABLET PO SCH (07:54)
[2019-05-08] MEDS: DOCUSATE SODIUM 100 MG CAPSULE PO SCH ×2 (07:54→20:04)
[2019-05-08] MEDS: NYSTATIN TOPICAL POWDER 15GM BOTTLE. TP SCH ×2 (07:55→20:07)
[2019-05-08] MEDS: BUDESONIDE 0.5 MG/2 ML NEBU NEB SCH ×2 (08:00→20:11)
--- NOTE | 2019-05-08 09:00 | NUR ---
Patient is located in dining room at time of assessment and medication administration. Pt is cooperative with medications whole and compliant with assessment. Pt is making somatic complaints stating that " I don't think I can make it down there (patient room), I can't walk". Patient is obsessive over breathing treatments and wants to be in room waiting for treatments. Patient is sitting quietly in dining room at this time. Will continue to monitor.
[2019-05-08 15:38] VITALS: BP 111/76
[2019-05-08] MEDS: metFORMIN XR 500 MG TAB.ER.24H PO SCH (16:23)
[2019-05-08] MEDS: TAMSULOSIN 0.4 MG CAP.ER.24H. PO SCH (20:03)
[2019-05-08] MEDS: MIRTAZAPINE 7.5 MG TABLET. PO SCH (20:04)
[2019-05-08] MEDS: QUEtiapine 100 MG TABLET. PO SCH (20:04)
[2019-05-08] MEDS: CYPROHEPTADINE 4 MG TABLET. PO SCH (20:04)
--- NOTE | 2019-05-08 21:46 | PDOC ---
Exam Note: Alvaro Note: Please also refer to the separate dictated note~for this date of service dictated separately.~Patient seen individually. Discussed the patient with Nursing staff reviewed the chart.~Reviewed interim history and current functioning. Reviewed vital signs,~Labs/ Radiology~and current medications noted below. Continue current treatment with the changes noted in the dictated addendum note Assessment: Vital Signs/I&O: Vital Signs Date Time Temp Pulse Resp B/P (MAP) Pulse Ox O2 Delivery O2 Flow Rate FiO2 05/08/19 20:13 98 Room Air 05/08/19 15:38 97.2 72 16 111/76 (88) 05/04/19 06:32 2.0 I & O 05/07/19 05/07/19 05/08/19 15:00 23:00 07:00 Intake Total 720 ml 360 ml Balance 720 ml 360 ml Current Medications: Meds: Current Medications Medications (Trade) Dose Ordered Sig/Bree Route PRN Reason Start Time Stop Time Status Last Admin Dose Admin Oxcarbazepine (Trileptal) 600 mg QHS PO 05/08/19 21:00 05/08/19 20:11 I have reviewed the current psychotropics carefully including drug interactions. Risk benefit ratio favors no change other than as noted in my dictated progress note. Diagnosis: Problems: (1) Bipolar affective, mixed, severe (2) Bipolar 2 disorder (3) Anxiety disorder (4) Impulse control disorder (5) Mild cognitive impairment (6) Major depressive disorder, recurrent episode (7) Personality disorder in adult NORM BRISENO MD May 08, 2019 21:46
--- NOTE | 2019-05-08 23:36 | PN ---
DATE: 05/07/2019 PSYCHIATRIC PROGRESS NOTE This late entry, 05/07, covers elements not covered in my initial note. SUBJECTIVE: I met with the patient evening of 05/07. The patient slept 7 hours previous night. He remains somewhat somatic, anxious, believes he needs frequent breathing treatments, fixated, obsessive about this as I met with him at length evening of 05/07. Other than above, he has vague somatic symptoms. REVIEW OF SYSTEMS: No CV, GI, eye, ENT system symptoms on review. MENTAL STATUS EXAMINATION: The patient is reasonably oriented. Speech is coherent, a little pressured at times. Abstraction fair, computation impaired, language function intact, attention span short. Mood and affect anxious, labile at times, better than before. LABORATORY DATA: Reviewed. IMPRESSION: Unchanged from initial note. Bipolar disorder, mixed; anxiety disorder, unspecified; obsessive-compulsive disorder; history of major depressive disorder. Information from family reveals he was manic most of his life and starting in November became depressed, and has remained so since then. His prior psychiatrist of many years, Dr. Christopher around that time, but it is unclear if this had any correlation. We will adjust his psychotropics gradually increasing the Luvox and the Trileptal as a mood stabilizer. MAN Suman BRISENO MD DR: ESTHER/joel JOB#: [id number] / [id number]
[2019-05-09 05:52] VITALS: BP 97/59
[2019-05-09 09:35] LABS: BASO % 1 % (0-3); EOS # 0.3 x10^3/uL (0.0-0.7); EOS % 5 % (0-3); HEMATOCRIT 45.6 % (39.0-53.0); HEMOGLOBIN 15.3 g/dL (13.0-17.5); LYMPH # 1.5 x10^3/uL (1.0-4.8); LYMPH % 27 % (24-48); MEAN CORPUSCULAR HEMOGLOBIN 31 pg (25-35); MEAN CORPUSCULAR HGB CONC 34 g/dL (31-37); MEAN CORPUSCULAR VOLUME 91 fL (79-100); MONO # 0.3 x10^3/uL (0.0-1.1); MONO % 5 % (0-9); NEUT # 3.5 x10^3uL (1.8-7.7); NEUT % 63 % (31-73); PLATELET COUNT 209 x10^3/uL (140-400); RED BLOOD COUNT 5.03 x10^6/uL (4.30-5.70); RED CELL DISTRIBUTION WIDTH 14.6 % (11.5-14.5); WHITE BLOOD COUNT 5.6 x10^3/uL (4.0-11.0)
[2019-05-09 09:56] LABS: ALBUMIN 3.3 g/dL (3.4-5.0); ALBUMIN/GLOBULIN RATIO 1.1 (1.0-1.7); CALCIUM 8.9 mg/dL (8.5-10.1); CREATININE 1.5 mg/dL (0.7-1.3); GFR 44.7; POTASSIUM 4.4 mmol/L (3.5-5.1); TOTAL BILIRUBIN 0.3 mg/dL (0.2-1.0); TOTAL PROTEIN 6.4 g/dL (6.4-8.2)
[2019-05-09] MEDS: BUDESONIDE 0.5 MG/2 ML NEBU NEB SCH ×2 (10:00→20:02)
[2019-05-09] MEDS: metFORMIN XR 500 MG TAB.ER.24H PO SCH (10:09)
[2019-05-09] MEDS: FAMOTIDINE 20 MG TABLET PO SCH (10:09)
[2019-05-09] MEDS: DOCUSATE SODIUM 100 MG CAPSULE PO SCH ×2 (10:09→19:49)
[2019-05-09] MEDS: NYSTATIN TOPICAL POWDER 15GM BOTTLE. TP SCH ×2 (10:10→19:50)
[2019-05-09] MEDS: POLYETHYLENE GLYCOL 3350 17 GM PACKET. PO SCH (10:10)
[2019-05-09] MEDS: OMEGA-3 FATTY ACIDS/FISH OIL 1,000 MG CAPSULE. PO SCH (10:10)
[2019-05-09] MEDS: FINASTERIDE 5 MG TABLET PO SCH (10:10)
[2019-05-09 15:44] VITALS: BP 108/72
[2019-05-09] MEDS: TAMSULOSIN 0.4 MG CAP.ER.24H. PO SCH (19:49)
[2019-05-09] MEDS: MIRTAZAPINE 7.5 MG TABLET. PO SCH (19:49)
[2019-05-09] MEDS: CYPROHEPTADINE 4 MG TABLET. PO SCH (19:49)
[2019-05-09] MEDS: QUEtiapine 100 MG TABLET. PO SCH (19:50)
--- NOTE | 2019-05-09 20:20 | NUR ---
Pt in day room pleasant and med compliant. Talks about how he is getting weaker each day but still is able to function well, as he has throughout his stay here.
--- NOTE | 2019-05-09 21:08 | PDOC ---
Exam Note: Alvaro Note: Please also refer to the separate dictated note~for this date of service dictated separately.~Patient seen individually. Discussed the patient with Nursing staff reviewed the chart.~Reviewed interim history and current functioning. Reviewed vital signs,~Labs/ Radiology~and current medications noted below. Continue current treatment with the changes noted in the dictated addendum note Assessment: Vital Signs/I&O: Vital Signs Date Time Temp Pulse Resp B/P (MAP) Pulse Ox O2 Delivery O2 Flow Rate FiO2 05/09/19 20:11 98 Room Air 05/09/19 15:44 97.8 58 16 108/72 (84) 05/04/19 06:32 2.0 I & O 05/08/19 05/08/19 05/09/19 14:59 22:59 06:59 Intake Total 960 ml 720 ml Balance 960 ml 720 ml Labs: Laboratory Tests Test 05/09/19 09:14 White Blood Count 5.6 x10^3/uL (4.0-11.0) Red Blood Count 5.03 x10^6/uL (4.30-5.70) Hemoglobin 15.3 g/dL (13.0-17.5) Hematocrit 45.6 % (39.0-53.0) Mean Corpuscular Volume 91 fL (79-100) Mean Corpuscular Hemoglobin 31 pg (25-35) Mean Corpuscular Hemoglobin Concent 34 g/dL (31-37) Red Cell Distribution Width 14.6 % (11.5-14.5) H Platelet Count 209 x10^3/uL (140-400) Neutrophils (%) (Auto) 63 % (31-73) Lymphocytes (%) (Auto) 27 % (24-48) Monocytes (%) (Auto) 5 % (0-9) Eosinophils (%) (Auto) 5 % (0-3) H Basophils (%) (Auto) 1 % (0-3) Neutrophils # (Auto) 3.5 x10^3uL (1.8-7.7) Lymphocytes # (Auto) 1.5 x10^3/uL (1.0-4.8) Monocytes # (Auto) 0.3 x10^3/uL (0.0-1.1) Eosinophils # (Auto) 0.3 x10^3/uL (0.0-0.7) Basophils # (Auto) 0.0 x10^3/uL (0.0-0.2) Sodium Level 141 mmol/L (136-145) Potassium Level 4.4 mmol/L (3.5-5.1) Chloride Level 104 mmol/L (98-107) Carbon Dioxide Level 27 mmol/L (21-32) Anion Gap 10 (6-14) Blood Urea Nitrogen 30 mg/dL (8-26) H Creatinine 1.5 mg/dL (0.7-1.3) H Estimated GFR (Cockcroft-Gault) 44.7 BUN/Creatinine Ratio 20 (6-20) Glucose Level 187 mg/dL (70-99) H Calcium Level 8.9 mg/dL (8.5-10.1) Total Bilirubin 0.3 mg/dL (0.2-1.0) Aspartate Amino Transferase (AST) 13 U/L (15-37) L Alanine Aminotransferase (ALT) 16 U/L (16-63) Alkaline Phosphatase 68 U/L (46-116) Total Protein 6.4 g/dL (6.4-8.2) Albumin 3.3 g/dL (3.4-5.0) L Albumin/Globulin Ratio 1.1 (1.0-1.7) Current Medications: Meds: Current Medications Medications (Trade) Dose Ordered Sig/Bree Route PRN Reason Start Time Stop Time Status Last Admin Dose Admin Oxcarbazepine (Trileptal) 300 mg DAILY PO 05/09/19 09:00 05/09/19 10:11 I have reviewed the current psychotropics carefully including drug interactions. Risk benefit ratio favors no change other than as noted in my dictated progress note. Diagnosis: Problems: (1) Bipolar affective, mixed, severe (2) Bipolar 2 disorder (3) Anxiety disorder (4) Impulse control disorder (5) Mild cognitive impairment (6) Major depressive disorder, recurrent episode (7) Personality disorder in adult NORM BRISENO MD May 09, 2019 21:08
--- NOTE | 2019-05-10 00:41 | PN ---
DATE: 05/08/2019 PSYCHIATRIC PROGRESS NOTE This late entry, 05/08/2019, covers elements not covered in my initial note. SUBJECTIVE: I met with the patient in the evening of 05/08/2019. The patient slept 6-1/2 hours previous night. He continues to be very somatically preoccupied, believes he cannot walk and he did ambulate very well, up to meals, and when this is remarked to him, he states "I barely made it." Continues to be somewhat depressed, anxious with some mood lability. REVIEW OF SYSTEMS: He has vague somatic symptoms. No CV, , pulmonary, eye, ENT system symptoms on review. MENTAL STATUS EXAM: Oriented reasonably. Speech is coherent, abstraction fair, computation impaired, language function intact, attention span short. Mood and affect still depressed, withdrawn. LABORATORY DATA: Reviewed. IMPRESSION: Unchanged from initial note. PLAN: The patient is currently on Trileptal 300 mg b.i.d., increase to 300 mg a.m. and 600 at bedtime. Continue Luvox 125 mg a day, Seroquel, Remeron, along with Zyprexa p.r.n. MAN Suman BRISENO MD DR: ESTHER/joel JOB#: [id number] / [id number]
[2019-05-10 05:26] VITALS: BP 121/76
[2019-05-10] MEDS: OMEGA-3 FATTY ACIDS/FISH OIL 1,000 MG CAPSULE. PO SCH (09:34)
[2019-05-10] MEDS: DOCUSATE SODIUM 100 MG CAPSULE PO SCH ×2 (09:34→20:02)
[2019-05-10] MEDS: FINASTERIDE 5 MG TABLET PO SCH (09:34)
[2019-05-10] MEDS: metFORMIN XR 500 MG TAB.ER.24H PO SCH (09:34)
[2019-05-10] MEDS: FAMOTIDINE 20 MG TABLET PO SCH (09:34)
[2019-05-10] MEDS: NYSTATIN TOPICAL POWDER 15GM BOTTLE. TP SCH ×2 (09:35→20:01)
[2019-05-10] MEDS: POLYETHYLENE GLYCOL 3350 17 GM PACKET. PO SCH (09:35)
--- NOTE | 2019-05-10 10:18 | NUR ---
WEEKLY NOTE: Pt eats roughly 75% and sleeping on average 7 hours. Pt is alert and oriented x 4; pt is somatic and needs encouragement that he is fine. Pt does need encouragement to attend groups and come out of his room. Pt Trileptal has been increased and will also have an increase on Luvox. Pt does have a Bipolar dx and will continue to monitor his mood. Pt will return to pt ; MARYCHUY for the middle to the latter part of next week.
--- NOTE | 2019-05-10 10:22 | NUR ---
WEEKLY ACTIVITY THERAPY NOTE Date of Admission: 04/19/2019 Date of AT Assessment: 04/22/2019 Goal aimed:to increase relaxation techniques and leisure awareness Initial Goal:Pt. will participate in at least five Activity Therapy groups per week. Weekly progress towards goal: achieved 6/5 Group participation level: minimal in all groups Weekly highlights: achieved goal Behaviors observed: difficultly sitting still and focused, up/down in group requiring redirection, complaining of being weak, in bed/ room often Plan: no change to goal Beneficial adaptations: invitations to group (agreed to be woken up if sleeping), encouragement and repeat
[2019-05-10] MEDS: BUDESONIDE 0.5 MG/2 ML NEBU NEB SCH ×2 (11:13→22:57)
[2019-05-10 15:48] VITALS: BP 110/69
[2019-05-10] MEDS: MIRTAZAPINE 7.5 MG TABLET. PO SCH (20:01)
[2019-05-10] MEDS: QUEtiapine 100 MG TABLET. PO SCH (20:02)
[2019-05-10] MEDS: TAMSULOSIN 0.4 MG CAP.ER.24H. PO SCH (20:02)
[2019-05-10] MEDS: CYPROHEPTADINE 4 MG TABLET. PO SCH (20:05)
--- NOTE | 2019-05-10 22:01 | PDOC ---
Exam Note: Alvaro Note: Please also refer to the separate dictated note~for this date of service dictated separately.~Patient seen individually. Discussed the patient with Nursing staff reviewed the chart.~Reviewed interim history and current functioning. Reviewed vital signs,~Labs/ Radiology~and current medications noted below. Continue current treatment with the changes noted in the dictated addendum note Assessment: Vital Signs/I&O: Vital Signs Date Time Temp Pulse Resp B/P (MAP) Pulse Ox O2 Delivery O2 Flow Rate FiO2 05/10/19 21:00 98 Room Air 05/10/19 15:48 97.3 73 20 110/69 (83) I & O 05/09/19 05/09/19 05/10/19 14:59 22:59 06:59 Intake Total 360 ml 360 ml 240 ml Balance 360 ml 360 ml 240 ml Current Medications: I have reviewed the current psychotropics carefully including drug interactions. Risk benefit ratio favors no change other than as noted in my dictated progress note. Diagnosis: Problems: (1) Bipolar affective, mixed, severe (2) Bipolar 2 disorder (3) Anxiety disorder (4) Impulse control disorder (5) Mild cognitive impairment (6) Major depressive disorder, recurrent episode (7) Personality disorder in adult NORM BRISENO MD May 10, 2019 22:01
--- NOTE | 2019-05-11 02:16 | NUR ---
Last evening pt sat in day room he was compliant with meds, continues to say his health is failing. Meds taken whole without problems.
[2019-05-11 06:00] VITALS: BP 97/62
[2019-05-11] MEDS: DOCUSATE SODIUM 100 MG CAPSULE PO SCH ×2 (08:36→23:56)
[2019-05-11] MEDS: OMEGA-3 FATTY ACIDS/FISH OIL 1,000 MG CAPSULE. PO SCH (08:36)
[2019-05-11] MEDS: FAMOTIDINE 20 MG TABLET PO SCH (08:36)
[2019-05-11] MEDS: POLYETHYLENE GLYCOL 3350 17 GM PACKET. PO SCH (08:36)
[2019-05-11] MEDS: FINASTERIDE 5 MG TABLET PO SCH (08:36)
[2019-05-11] MEDS: NYSTATIN TOPICAL POWDER 15GM BOTTLE. TP SCH ×2 (08:37→23:56)
[2019-05-11] MEDS: BUDESONIDE 0.5 MG/2 ML NEBU NEB SCH ×2 (10:24→20:00)
--- NOTE | 2019-05-11 11:04 | NUR ---
Pt continues to be somatic and attention seeking. Pt states that he is getting weaker every day. Compliant with medications. Obsessing over breathing treatments.
[2019-05-11 16:56] VITALS: BP 112/75
[2019-05-11] MEDS: metFORMIN XR 500 MG TAB.ER.24H PO SCH (17:17)
--- NOTE | 2019-05-11 20:31 | PN ---
DATE: 05/09/2019 PSYCHIATRIC PROGRESS NOTE This late entry 05/09/2019 covers elements not covered in my initial note. SUBJECTIVE: I met with the patient evening of 05/09/2019. The patient slept 7-1/2 hours previous night. He remains somewhat somatic, constantly stating he cannot walk back to his room or cannot walk to the dining room, cannot eat, various vague somatic symptoms part of his psychiatric disorder. He is also obsessed about his breathing treatments. REVIEW OF SYSTEMS: No CV, , eye system symptoms on review, but when questioned, he has vague somatic symptoms including integumentary, ambulation, and musculoskeletal amongst others. MENTAL STATUS EXAMINATION: The patient is reasonably oriented. Speech is coherent, has some latency. Abstraction fair, computation impaired, language function intact, attention span short. Mood and affect remain somewhat anxious, depressed. No suicidal or homicidal ideation. LABORATORY DATA: Reviewed. IMPRESSION: Unchanged from initial note. PLAN: No change from initial note. NORM BRISENO MD DR: ESTHER/joel JOB#: [id number] / [id number]
[2019-05-11] MEDS: MIRTAZAPINE 7.5 MG TABLET. PO SCH (20:32)
[2019-05-11] MEDS: QUEtiapine 100 MG TABLET. PO SCH (20:32)
[2019-05-11] MEDS: TAMSULOSIN 0.4 MG CAP.ER.24H. PO SCH (20:32)
[2019-05-11] MEDS: CYPROHEPTADINE 4 MG TABLET. PO SCH (20:32)
--- NOTE | 2019-05-11 21:44 | PDOC ---
Exam Note: Alvaro Note: Please also refer to the separate dictated note~for this date of service dictated separately.~Patient seen individually. Discussed the patient with Nursing staff reviewed the chart.~Reviewed interim history and current functioning. Reviewed vital signs,~Labs/ Radiology~and current medications noted below. Continue current treatment with the changes noted in the dictated addendum note Assessment: Vital Signs/I&O: Vital Signs Date Time Temp Pulse Resp B/P (MAP) Pulse Ox O2 Delivery O2 Flow Rate FiO2 05/11/19 20:30 96 Room Air 05/11/19 16:56 97.2 87 18 112/75 (87) I & O 05/10/19 05/10/19 05/11/19 15:00 23:00 07:00 Intake Total 960 ml 240 ml 240 ml Balance 960 ml 240 ml 240 ml Current Medications: I have reviewed the current psychotropics carefully including drug interactions. Risk benefit ratio favors no change other than as noted in my dictated progress note. Diagnosis: Problems: (1) Bipolar affective, mixed, severe (2) Bipolar 2 disorder (3) Anxiety disorder (4) Impulse control disorder (5) Mild cognitive impairment (6) Major depressive disorder, recurrent episode (7) Personality disorder in adult NORM BRISENO MD May 11, 2019 21:44
--- NOTE | 2019-05-12 00:09 | NUR ---
Nursing Note: Assumed care of pt. this evening, he was sitting out in the day room. He still say that he is getting weaker, but is compliant with taking his HS meds whole. No agitation or aggression noted at this time.
--- NOTE | 2019-05-12 02:40 | PN ---
DATE: 05/10/2019 SUBJECTIVE: The patient was seen on rounds evening of 05/10/2019. Discussed with nursing staff, reviewed the chart and in the morning, the patient was staffed at treatment team meeting with the entire team. Social service staff reviewed information from family, specifically the daughterRosa and the family has planned to have him back home once he is stable. He is compliant with his medications. Remains somatically quite preoccupied, specifically with breathing treatment, but less than before. Appetite 75-100%. Slept 7-1/2 hours average, alert, oriented x 4. REVIEW OF SYSTEMS: Complains of tiredness, impaired ambulation, but he ambulates well. No CV, , pulmonary, eye system symptoms on review. MENTAL STATUS EXAMINATION: Reasonably oriented. Speech is coherent, has some latency, obstruction fair, computation impaired. Language function intact. Attention span short, mood and affect still depressed, anxious, obsessive. LABORATORY DATA: Reviewed. IMPRESSION: Unchanged from the initial note, sleeping average 7-1/2 hours. PLAN: We will continue the patient on his current psychotropics. Luvox will be increased to 150 mg at bedtime after he has been on 125 for 3 days. Continue Seroquel 100 mg at bedtime, Remeron 7.5 mg at bedtime, Zyprexa p.r.n., increase the Trileptal 300 mg a.m. and 600 at bedtime to 600 b.i.d. after he has been on the lower dosage for 3 days. Rest unchanged for now. NORM BRISENO MD DR: ESTHER/joel JOB#: [id number] / [id number]
[2019-05-12 05:45] VITALS: BP 117/73
[2019-05-12] MEDS: FAMOTIDINE 20 MG TABLET PO SCH (09:31)
[2019-05-12] MEDS: DOCUSATE SODIUM 100 MG CAPSULE PO SCH ×2 (09:31→20:34)
[2019-05-12] MEDS: POLYETHYLENE GLYCOL 3350 17 GM PACKET. PO SCH (09:31)
[2019-05-12] MEDS: OMEGA-3 FATTY ACIDS/FISH OIL 1,000 MG CAPSULE. PO SCH (09:31)
[2019-05-12] MEDS: FINASTERIDE 5 MG TABLET PO SCH (09:32)
[2019-05-12] MEDS: BUDESONIDE 0.5 MG/2 ML NEBU NEB SCH ×2 (11:41→20:17)
[2019-05-12] MEDS: NYSTATIN TOPICAL POWDER 15GM BOTTLE. TP SCH ×2 (12:44→21:13)
--- NOTE | 2019-05-12 15:18 | NUR ---
Patient was calm and cooperative with medication administration and assessment. Stated "I'm getting weaker" but has been ambulating without difficulty. Patient was in day room and was getting up to go to breakfast and "got weak" and grabbed his roommates walker and ran it into his knee. Cleaned patient's pannus and groin which is reddened with some skin breakdown. This nurse patted area dry, applied nystatin powder, and placed a washcloth between skin folds to keep dry. Will continue to monitor.
[2019-05-12 15:27] VITALS: BP 89/53
[2019-05-12] MEDS: metFORMIN XR 500 MG TAB.ER.24H PO SCH (16:49)
--- NOTE | 2019-05-12 19:57 | PDOC ---
Exam Note: Alvaro Note: Please also refer to the separate dictated note~for this date of service dictated separately.~Patient seen individually. Discussed the patient with Nursing staff reviewed the chart.~Reviewed interim history and current functioning. Reviewed vital signs,~Labs/ Radiology~and current medications noted below. Continue current treatment with the changes noted in the dictated addendum note Assessment: Vital Signs/I&O: Vital Signs Date Time Temp Pulse Resp B/P (MAP) Pulse Ox O2 Delivery O2 Flow Rate FiO2 05/12/19 15:27 98.9 61 16 89/53 (65) 92 05/12/19 11:41 Room Air I & O 05/11/19 05/11/19 05/12/19 15:00 23:00 07:00 Intake Total 960 ml 480 ml 240 ml Balance 960 ml 480 ml 240 ml Current Medications: Meds: Current Medications Medications (Trade) Dose Ordered Sig/Bree Route PRN Reason Start Time Stop Time Status Last Admin Dose Admin Oxcarbazepine (Trileptal) 600 mg BID PO 05/12/19 09:00 05/12/19 09:33 I have reviewed the current psychotropics carefully including drug interactions. Risk benefit ratio favors no change other than as noted in my dictated progress note. 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
[2019-05-12] MEDS: CYPROHEPTADINE 4 MG TABLET. PO SCH (20:33)
[2019-05-12] MEDS: MIRTAZAPINE 7.5 MG TABLET. PO SCH (20:33)
[2019-05-12] MEDS: TAMSULOSIN 0.4 MG CAP.ER.24H. PO SCH (20:34)
[2019-05-12] MEDS: QUEtiapine 100 MG TABLET. PO SCH (20:34)
--- NOTE | 2019-05-12 22:38 | NUR ---
Nursing Note: Assumed care of pt. this evening, he was sitting out in the day room. He still complains of getting weaker, reminded pt. that the more he stays in bed the weaker he will be. He has been compliant with taking his HS meds whole this evening. No aggression or agitation noted at this time.
[2019-05-13 06:02] VITALS: BP 109/69
[2019-05-13] MEDS: OMEGA-3 FATTY ACIDS/FISH OIL 1,000 MG CAPSULE. PO SCH (07:56)
[2019-05-13] MEDS: FAMOTIDINE 20 MG TABLET PO SCH (07:56)
[2019-05-13] MEDS: POLYETHYLENE GLYCOL 3350 17 GM PACKET. PO SCH (07:56)
[2019-05-13] MEDS: DOCUSATE SODIUM 100 MG CAPSULE PO SCH ×2 (07:56→19:51)
[2019-05-13] MEDS: FINASTERIDE 5 MG TABLET PO SCH (07:56)
[2019-05-13] MEDS: NYSTATIN TOPICAL POWDER 15GM BOTTLE. TP SCH ×2 (09:20→19:51)
--- NOTE | 2019-05-13 11:08 | NUR ---
Patient was in the dining room during morning assessment, took medications. Let the nurse know that he "was getting weaker by the second." The nurse assured him that he would be just fine. Patient did well in his shower this morning. Has been in group, no agitation noted.
[2019-05-13] MEDS: BUDESONIDE 0.5 MG/2 ML NEBU NEB SCH ×2 (11:57→21:46)
[2019-05-13 16:13] VITALS: BP 116/76
[2019-05-13] MEDS: metFORMIN XR 500 MG TAB.ER.24H PO SCH (16:56)
[2019-05-13] MEDS: CYPROHEPTADINE 4 MG TABLET. PO SCH (19:47)
[2019-05-13] MEDS: MIRTAZAPINE 7.5 MG TABLET. PO SCH (19:47)
[2019-05-13] MEDS: QUEtiapine 100 MG TABLET. PO SCH (19:48)
[2019-05-13] MEDS: TAMSULOSIN 0.4 MG CAP.ER.24H. PO SCH (19:48)
--- NOTE | 2019-05-13 21:42 | PDOC ---
Exam Note: Alvaro Note: Please also refer to the separate dictated note~for this date of service dictated separately.~Patient seen individually. Discussed the patient with Nursing staff reviewed the chart.~Reviewed interim history and current functioning. Reviewed vital signs,~Labs/ Radiology~and current medications noted below. Continue current treatment with the changes noted in the dictated addendum note Assessment: Vital Signs/I&O: Vital Signs Date Time Temp Pulse Resp B/P (MAP) Pulse Ox O2 Delivery O2 Flow Rate FiO2 05/13/19 16:13 97.8 58 20 116/76 (89) 97 05/13/19 11:57 Room Air I & O 05/12/19 05/12/19 05/13/19 15:00 23:00 07:00 Intake Total 960 ml 480 ml Balance 960 ml 480 ml Current Medications: I have reviewed the current psychotropics carefully including drug interactions. Risk benefit ratio favors no change other than as noted in my dictated progress note. Diagnosis: Problems: (1) Bipolar affective, mixed, severe (2) Bipolar 2 disorder (3) Anxiety disorder (4) Impulse control disorder (5) Mild cognitive impairment (6) Major depressive disorder, recurrent episode (7) Personality disorder in adult NORM BRISENO MD May 13, 2019 21:42
--- NOTE | 2019-05-13 21:53 | PN ---
DATE: 05/12/2019 PSYCHIATRIC PROGRESS NOTE This late entry of 05/12/2019 covers the elements not covered in my initial note. SUBJECTIVE: I met with the patient in the evening of 05/12/2019. The patient slept 6-1/2 hours previous night. He still complains of feeling weak, cannot walk. Ambulates reasonably well despite this. His family came to visit him along with the granddaughter and he felt positive about this. REVIEW OF SYSTEMS: No CV, , pulmonary, eye, ENT system symptoms on review, but he has vague somatic symptoms of breathing problems, ambulation problems, weakness. MENTAL STATUS EXAM: Reasonably oriented. Speech has some latency, coherent. Abstraction fair, computation impaired, language function intact, attention span fair. Mood and affect still withdrawn, depressed, showing improvement. LABORATORY DATA: Reviewed. IMPRESSION: Unchanged from initial note. PLAN: No change from initial note. MAN Suman BRISENO MD DR: ESTHER/joel JOB#: [id number] / [id number]
--- NOTE | 2019-05-13 21:53 | PN ---
DATE: 05/11/2019 PSYCHIATRIC PROGRESS NOTE This late entry 05/11/2019 covers elements not covered in my initial note. SUBJECTIVE: I met with the patient in the evening of 05/11/2019. The patient slept 7-3/4 hours previous night. He remains somatically preoccupied, believes he is getting weaker, cannot eat, cannot walk, needs breathing treatments, but less intense than before. MENTAL STATUS EXAM: Reasonably oriented. Speech has some latency, coherent. Abstraction fair, computation impaired, language function intact, attention span short. Mood and affect still withdrawn, showing improvement. LABORATORY DATA: Reviewed. IMPRESSION: Unchanged from initial note. PLAN: No change from initial note. We are increasing the Luvox gradually together with Trileptal as a mood stabilizer, Remeron, remains unchanged and Seroquel 100 at bedtime. MAN Suman BRISENO MD DR: ESTHER/joel JOB#: [id number] / [id number]
[2019-05-14 06:13] VITALS: BP 124/62
[2019-05-14] MEDS: BUDESONIDE 0.5 MG/2 ML NEBU NEB SCH ×2 (08:00→20:08)
[2019-05-14] MEDS: OMEGA-3 FATTY ACIDS/FISH OIL 1,000 MG CAPSULE. PO SCH (08:12)
[2019-05-14] MEDS: FAMOTIDINE 20 MG TABLET PO SCH (08:12)
[2019-05-14] MEDS: DOCUSATE SODIUM 100 MG CAPSULE PO SCH ×2 (08:12→20:13)
[2019-05-14] MEDS: FINASTERIDE 5 MG TABLET PO SCH (08:12)
[2019-05-14] MEDS: POLYETHYLENE GLYCOL 3350 17 GM PACKET. PO SCH (08:12)
[2019-05-14] MEDS: NYSTATIN TOPICAL POWDER 15GM BOTTLE. TP SCH ×2 (08:13→20:14)
--- NOTE | 2019-05-14 09:06 | NUR ---
PT IS LOCATED IN DINING ROOM EATING BREAKFAST AT TIME OF ASSESSMENT. PT IS SLIGHTLY WITHDRAWN AND RESTLESS. PT WANTS TO LEAVE THE DINING ROOM. PT DID HOWEVER WAIT FO THIS NURSE TO BRING HIS MEDICATIONS AND WAS COMPLIANT WITH MEDICATIONS WHOLE. PT IS A&O X4. PATIENT IS RESTING IN DAY ROOM AT THIS TIME. WILL CONTINUE TO MONITOR.
--- NOTE | 2019-05-14 11:15 | NUR ---
PATIENT IS PARTICIPATING IN GROUP THIS MORNING INTERACTING WITH PEERS AND STAFF. PATIENT IS PLEASANT DURING GROUP.
[2019-05-14 16:22] VITALS: BP 106/70
[2019-05-14] MEDS: metFORMIN XR 500 MG TAB.ER.24H PO SCH (17:08)
[2019-05-14] MEDS: CYPROHEPTADINE 4 MG TABLET. PO SCH (20:11)
[2019-05-14] MEDS: QUEtiapine 100 MG TABLET. PO SCH (20:12)
[2019-05-14] MEDS: TAMSULOSIN 0.4 MG CAP.ER.24H. PO SCH (20:13)
[2019-05-14] MEDS: MIRTAZAPINE 7.5 MG TABLET. PO SCH (20:17)
--- NOTE | 2019-05-14 21:39 | PDOC ---
Exam Note: Alvaro Note: Please also refer to the separate dictated note~for this date of service dictated separately.~Patient seen individually. Discussed the patient with Nursing staff reviewed the chart.~Reviewed interim history and current functioning. Reviewed vital signs,~Labs/ Radiology~and current medications noted below. Continue current treatment with the changes noted in the dictated addendum note Assessment: Vital Signs/I&O: Vital Signs Date Time Temp Pulse Resp B/P (MAP) Pulse Ox O2 Delivery O2 Flow Rate FiO2 05/14/19 20:11 97 Room Air 05/14/19 16:22 97.9 62 16 106/70 (82) I & O 05/13/19 05/13/19 05/14/19 15:00 23:00 07:00 Intake Total 720 ml 240 ml 240 ml Balance 720 ml 240 ml 240 ml Current Medications: I have reviewed the current psychotropics carefully including drug interactions. Risk benefit ratio favors no change other than as noted in my dictated progress note. Diagnosis: Problems: (1) Bipolar affective, mixed, severe (2) Bipolar 2 disorder (3) Anxiety disorder (4) Impulse control disorder (5) Mild cognitive impairment (6) Major depressive disorder, recurrent episode (7) Personality disorder in adult NORM BRISENO MD May 14, 2019 21:39
--- NOTE | 2019-05-15 00:46 | NUR ---
Last evening pt sat in day room watching tv and patiently waiting for RT TX and hs meds before going to bed. Pills taken whole without difficulty. Pt said he is still getting weaker but is able to stand, walk, toilet self without difficulty.
--- NOTE | 2019-05-15 04:44 | PN ---
DATE: 05/13/2019 PSYCHIATRIC PROGRESS NOTE This late entry of 05/13/2019 covers elements not covered in my initial note. SUBJECTIVE: I met with the patient in evening of 05/13/2019. The patient slept 7-3/4 hours previous night. He has been less obsessive, less somatically preoccupied, still believes he needs frequent breathing treatments, but his impatience is better per nursing report. REVIEW OF SYSTEMS: Positive for the breathing difficulty, which is less intense. No CV, GI, , eye system symptoms on review, vague somatic symptoms. MENTAL STATUS EXAM: Reasonably oriented. Speech is coherent, has some latency. Abstraction fair, computation impaired, language function intact. Mood and affect less obsessive, less anxious. LABORATORY DATA: Reviewed. IMPRESSION: Unchanged from initial note. PLAN: No change from initial note. MAN Suman BRISENO MD DR: ESTHER/joel JOB#: [id number] / [id number]
[2019-05-15 06:01] VITALS: BP 110/67
[2019-05-15] MEDS: FINASTERIDE 5 MG TABLET PO SCH (08:18)
[2019-05-15] MEDS: OMEGA-3 FATTY ACIDS/FISH OIL 1,000 MG CAPSULE. PO SCH (08:18)
[2019-05-15] MEDS: FAMOTIDINE 20 MG TABLET PO SCH (08:18)
[2019-05-15] MEDS: metFORMIN XR 500 MG TAB.ER.24H PO SCH (08:19)
[2019-05-15] MEDS: NYSTATIN TOPICAL POWDER 15GM BOTTLE. TP SCH ×2 (08:19→20:02)
[2019-05-15] MEDS: POLYETHYLENE GLYCOL 3350 17 GM PACKET. PO SCH (08:19)
[2019-05-15] MEDS: DOCUSATE SODIUM 100 MG CAPSULE PO SCH ×2 (08:19→20:07)
[2019-05-15] MEDS: BUDESONIDE 0.5 MG/2 ML NEBU NEB SCH (11:58)
[2019-05-15 15:50] VITALS: BP 117/78
[2019-05-15] MEDS: CYPROHEPTADINE 4 MG TABLET. PO SCH (20:03)
[2019-05-15] MEDS: TAMSULOSIN 0.4 MG CAP.ER.24H. PO SCH (20:04)
[2019-05-15] MEDS: MIRTAZAPINE 7.5 MG TABLET. PO SCH (20:04)
--- NOTE | 2019-05-15 21:58 | PDOC ---
Exam Note: Alvaro Note: Please also refer to the separate dictated note~for this date of service dictated separately.~Patient seen individually. Discussed the patient with Nursing staff reviewed the chart.~Reviewed interim history and current functioning. Reviewed vital signs,~Labs/ Radiology~and current medications noted below. Continue current treatment with the changes noted in the dictated addendum note Assessment: Vital Signs/I&O: Vital Signs Date Time Temp Pulse Resp B/P (MAP) Pulse Ox O2 Delivery O2 Flow Rate FiO2 05/15/19 20:35 97 Room Air 05/15/19 15:50 97.9 73 20 117/78 (91) I & O 05/14/19 05/14/19 05/15/19 15:00 23:00 07:00 Intake Total 600 ml 480 ml 240 ml Balance 600 ml 480 ml 240 ml Current Medications: I have reviewed the current psychotropics carefully including drug interactions. Risk benefit ratio favors no change other than as noted in my dictated progress note. Diagnosis: Problems: (1) Bipolar affective, mixed, severe (2) Bipolar 2 disorder (3) Anxiety disorder (4) Impulse control disorder (5) Mild cognitive impairment (6) Major depressive disorder, recurrent episode (7) Personality disorder in adult NORM BRISENO MD May 15, 2019 21:58
--- NOTE | 2019-05-16 00:14 | PN ---
DATE: 05/14/2019 PSYCHIATRIC PROGRESS NOTE This late entry 05/14/2019 covers elements not covered in my initial note. SUBJECTIVE: I met with the patient evening of 05/14/2019. The patient slept 6-1/4 hours previous night. Per nursing staff, the patient has been less obsessive regarding his breathing treatment, though in the evening as I met with him at length, he was again focused on this. He is less somatic. Family did not visit, we were unable to get feedback for 05/14/2019 from them. REVIEW OF SYSTEMS: Positive for difficulty with his breathing, vague somatic symptoms. No CV, , eye, ENT system symptoms on review. MENTAL STATUS EXAMINATION: Reasonably oriented. Speech is coherent, abstraction fair, computation impaired, language function intact. Mood and affect somewhat withdrawn. LABORATORY DATA: Reviewed. IMPRESSION: Unchanged from initial note. PLAN: No change from initial note. MAN Suman BRISENO MD DR: ESTHER/joel JOB#: [id number] / [id number]
--- NOTE | 2019-05-16 02:53 | NUR ---
Pt continues to take his meds without difficulty. He is pleasant and cooperative and feels that his health is failing.
[2019-05-16] MEDS: BUDESONIDE 0.5 MG/2 ML NEBU NEB SCH ×2 (03:31→11:43)
[2019-05-16 05:52] VITALS: BP 112/67
[2019-05-16] MEDS: LURASIDONE 40 MG TABLET. PO SCH (08:01)
[2019-05-16] MEDS: DOCUSATE SODIUM 100 MG CAPSULE PO SCH ×2 (08:01→19:54)
[2019-05-16] MEDS: OMEGA-3 FATTY ACIDS/FISH OIL 1,000 MG CAPSULE. PO SCH (08:01)
[2019-05-16] MEDS: FAMOTIDINE 20 MG TABLET PO SCH (08:02)
[2019-05-16] MEDS: FINASTERIDE 5 MG TABLET PO SCH (08:02)
[2019-05-16] MEDS: NYSTATIN TOPICAL POWDER 15GM BOTTLE. TP SCH ×2 (08:02→19:56)
[2019-05-16] MEDS: POLYETHYLENE GLYCOL 3350 17 GM PACKET. PO SCH (08:02)
[2019-05-16 09:58] LABS: BASO % 1 % (0-3); EOS # 0.2 x10^3/uL (0.0-0.7); EOS % 4 % (0-3); HEMATOCRIT 46.1 % (39.0-53.0); HEMOGLOBIN 15.4 g/dL (13.0-17.5); LYMPH # 1.4 x10^3/uL (1.0-4.8); LYMPH % 24 % (24-48); MEAN CORPUSCULAR HEMOGLOBIN 30 pg (25-35); MEAN CORPUSCULAR HGB CONC 33 g/dL (31-37); MEAN CORPUSCULAR VOLUME 90 fL (79-100); MONO # 0.2 x10^3/uL (0.0-1.1); MONO % 4 % (0-9); NEUT # 4.1 x10^3uL (1.8-7.7); NEUT % 68 % (31-73); PLATELET COUNT 211 x10^3/uL (140-400); RED BLOOD COUNT 5.11 x10^6/uL (4.30-5.70); RED CELL DISTRIBUTION WIDTH 14.3 % (11.5-14.5); WHITE BLOOD COUNT 6.1 x10^3/uL (4.0-11.0)
[2019-05-16 10:01] VITALS: BP 115/77
[2019-05-16 10:19] LABS: ALBUMIN 3.2 g/dL (3.4-5.0); CALCIUM 9.2 mg/dL (8.5-10.1); CREATININE 1.5 mg/dL (0.7-1.3); GFR 44.7; POTASSIUM 4.3 mmol/L (3.5-5.1); TOTAL BILIRUBIN 0.3 mg/dL (0.2-1.0); TOTAL PROTEIN 6.5 g/dL (6.4-8.2)
--- NOTE | 2019-05-16 11:19 | NUR ---
Patient was in the dayroom during rounding, took medications as prescribed. Allowed for morning assessment. Pt denies pain, no agitation noted. Patient did go to group this morning. Once group was over patient went to stand and was unsteady when walking. Was helped back to a chair by staff. BP was taken 115/77, IL 90. Patients blood sugar was also taken, this was 120. Patient wanted to lay down, staff helped him to his room. Patient got up just a little bit ago, pt's gait is better. Will continue to monitor.
--- NOTE | 2019-05-16 13:46 | NUR ---
WEEKLY ACTIVITY THERAPY NOTE Date of Admission: 04/19/2019 Date of AT Assessment: 04/22/2019 Goal aimed:to increase relaxation techniques and leisure awareness Initial Goal:Pt. will participate in at least five Activity Therapy groups per week. Weekly progress towards goal: achieved, 5/5 Group participation level: moderate to full in groups Weekly highlights: reciting positive affirmations in groups on Tuesday morning despite initially resisting encouragement and firmly stating negative comments Behaviors observed: around group most of the week, some days he is hyper focused on respiratory therapy and wanting to go to his room, other days he is able to sit and focus on groups with prompting Plan: no change to goal Beneficial adaptations: invitations to group (agreed to be woken up if sleeping), encouragement and repeat
[2019-05-16 15:50] VITALS: BP 115/76
--- NOTE | 2019-05-16 16:18 | NUR ---
WEEKLY NOTE: Pt is eating 75-100% and sleeping 8 hours. Compliant with medications but is still somatic. Pt is redirectable and appears to be more interactive. Pt struggles to participate in group as he worries about breathing but sits on the table. Pt is taking Latuda 20mg with an increase after 2 days to 40mg, Seroquel, Luvox, and Remeron. Pt to discharge within the middle of next week.
[2019-05-16] MEDS: metFORMIN XR 500 MG TAB.ER.24H PO SCH (17:03)
[2019-05-16] MEDS: TAMSULOSIN 0.4 MG CAP.ER.24H. PO SCH (19:55)
[2019-05-16] MEDS: CYPROHEPTADINE 4 MG TABLET. PO SCH (19:55)
[2019-05-16] MEDS: MIRTAZAPINE 7.5 MG TABLET. PO SCH (19:56)
--- NOTE | 2019-05-16 22:02 | PDOC ---
Exam Note: Alvaro Note: Please also refer to the separate dictated note~for this date of service dictated separately.~Patient seen individually. Discussed the patient with Nursing staff reviewed the chart.~Reviewed interim history and current functioning. Reviewed vital signs,~Labs/ Radiology~and current medications noted below. Continue current treatment with the changes noted in the dictated addendum note Assessment: Vital Signs/I&O: Vital Signs Date Time Temp Pulse Resp B/P (MAP) Pulse Ox O2 Delivery O2 Flow Rate FiO2 05/16/19 20:45 96 Room Air 05/16/19 15:50 97.8 66 20 115/76 (89) I & O 05/15/19 05/15/19 05/16/19 15:00 23:00 07:00 Intake Total 720 ml 240 ml 240 ml Balance 720 ml 240 ml 240 ml Labs: Laboratory Tests Test 05/16/19 09:47 05/16/19 10:07 White Blood Count 6.1 x10^3/uL (4.0-11.0) Red Blood Count 5.11 x10^6/uL (4.30-5.70) Hemoglobin 15.4 g/dL (13.0-17.5) Hematocrit 46.1 % (39.0-53.0) Mean Corpuscular Volume 90 fL (79-100) Mean Corpuscular Hemoglobin 30 pg (25-35) Mean Corpuscular Hemoglobin Concent 33 g/dL (31-37) Red Cell Distribution Width 14.3 % (11.5-14.5) Platelet Count 211 x10^3/uL (140-400) Neutrophils (%) (Auto) 68 % (31-73) Lymphocytes (%) (Auto) 24 % (24-48) Monocytes (%) (Auto) 4 % (0-9) Eosinophils (%) (Auto) 4 % (0-3) H Basophils (%) (Auto) 1 % (0-3) Neutrophils # (Auto) 4.1 x10^3uL (1.8-7.7) Lymphocytes # (Auto) 1.4 x10^3/uL (1.0-4.8) Monocytes # (Auto) 0.2 x10^3/uL (0.0-1.1) Eosinophils # (Auto) 0.2 x10^3/uL (0.0-0.7) Basophils # (Auto) 0.0 x10^3/uL (0.0-0.2) Sodium Level 140 mmol/L (136-145) Potassium Level 4.3 mmol/L (3.5-5.1) Chloride Level 102 mmol/L (98-107) Carbon Dioxide Level 31 mmol/L (21-32) Anion Gap 7 (6-14) Blood Urea Nitrogen 32 mg/dL (8-26) H Creatinine 1.5 mg/dL (0.7-1.3) H Estimated GFR (Cockcroft-Gault) 44.7 BUN/Creatinine Ratio 21 (6-20) H Glucose Level 180 mg/dL (70-99) H Calcium Level 9.2 mg/dL (8.5-10.1) Total Bilirubin 0.3 mg/dL (0.2-1.0) Aspartate Amino Transferase (AST) 12 U/L (15-37) L Alanine Aminotransferase (ALT) 16 U/L (16-63) Alkaline Phosphatase 71 U/L (46-116) Total Protein 6.5 g/dL (6.4-8.2) Albumin 3.2 g/dL (3.4-5.0) L Albumin/Globulin Ratio 1.0 (1.0-1.7) Glucose (Fingerstick) 122 mg/dL (70-99) H Current Medications: Meds: Current Medications Medications (Trade) Dose Ordered Sig/Bree Route PRN Reason Start Time Stop Time Status Last Admin Dose Admin Lurasidone HCl (Latuda) 20 mg [id number] PO 05/16/19 08:00 05/18/19 06:00 05/16/19 08:03 I have reviewed the current psychotropics carefully including drug interactions. Risk benefit ratio favors no change other than as noted in my dictated progress note. Diagnosis: Problems: (1) Bipolar affective, mixed, severe (2) Bipolar 2 disorder (3) Anxiety disorder (4) Impulse control disorder (5) Mild cognitive impairment (6) Major depressive disorder, recurrent episode (7) Personality disorder in adult NORM BRISENO MD May 16, 2019 22:01
--- NOTE | 2019-05-16 22:28 | PN ---
DATE: 05/15/2019 PSYCHIATRIC PROGRESS NOTE This late entry 05/15/2019 covers elements not covered in my initial note. SUBJECTIVE: I met with the patient in the evening of 05/15/2019. The patient slept 7 hours previous night per [facility], nursing staff. He has been more anxious, states he is weak. He has vague somatic symptoms including breathing, still obsessive about this. REVIEW OF SYSTEMS: In addition to above, no CV, , pulmonary, eye system symptoms on review other than the breathing problems and weakness. MENTAL STATUS EXAM: Reasonably oriented. Speech has some latency, coherent. Abstraction fair, computation impaired, language function intact, attention span short. Mood and affect still somewhat withdrawn. LABORATORY DATA: Reviewed. IMPRESSION: Unchanged from initial note. PLAN: We have checked with Phyllis and the patient's daughter about his past treatments. He has failed BuSpar in the past, not sure how he did on the Lamictal, has never been on Latuda. We will change the Seroquel 100 mg at bedtime to Latuda 20 mg at bedtime for 2 days, then 40 mg at bedtime thereafter. Maintain Luvox, Remeron along with Zyprexa p.r.n., Trileptal 600 mg b.i.d. as a mood stabilizer. NORM BRISENO MD DR: ESTHER/joel JOB#: [id number] / [id number]
[2019-05-17] MEDS: BUDESONIDE 0.5 MG/2 ML NEBU NEB SCH ×2 (01:21→10:09)
[2019-05-17 05:45] VITALS: BP 104/64
[2019-05-17] MEDS: FAMOTIDINE 20 MG TABLET PO SCH (08:05)
[2019-05-17] MEDS: OMEGA-3 FATTY ACIDS/FISH OIL 1,000 MG CAPSULE. PO SCH (08:05)
[2019-05-17] MEDS: DOCUSATE SODIUM 100 MG CAPSULE PO SCH ×2 (08:05→20:05)
[2019-05-17] MEDS: POLYETHYLENE GLYCOL 3350 17 GM PACKET. PO SCH (08:06)
[2019-05-17] MEDS: LURASIDONE 40 MG TABLET. PO SCH (08:06)
[2019-05-17] MEDS: FINASTERIDE 5 MG TABLET PO SCH (08:06)
[2019-05-17] MEDS: NYSTATIN TOPICAL POWDER 15GM BOTTLE. TP SCH ×2 (08:07→21:00)
[2019-05-17 16:43] VITALS: BP 97/62
--- NOTE | 2019-05-17 16:45 | NUR ---
Pt calm, compliant during morning med pass and assessment. Pt in day room for most of the day. Participated in group.
[2019-05-17] MEDS: metFORMIN XR 500 MG TAB.ER.24H PO SCH (18:05)
[2019-05-17] MEDS: TAMSULOSIN 0.4 MG CAP.ER.24H. PO SCH (20:04)
[2019-05-17] MEDS: MIRTAZAPINE 7.5 MG TABLET. PO SCH (20:04)
[2019-05-17] MEDS: CYPROHEPTADINE 4 MG TABLET. PO SCH (20:05)
--- NOTE | 2019-05-17 21:41 | PDOC ---
Exam Note: Alvaro Note: Please also refer to the separate dictated note~for this date of service dictated separately.~Patient seen individually. Discussed the patient with Nursing staff reviewed the chart.~Reviewed interim history and current functioning. Reviewed vital signs,~Labs/ Radiology~and current medications noted below. Continue current treatment with the changes noted in the dictated addendum note Assessment: Vital Signs/I&O: Vital Signs Date Time Temp Pulse Resp B/P (MAP) Pulse Ox O2 Delivery O2 Flow Rate FiO2 05/17/19 20:45 98 Room Air 05/17/19 16:43 97.6 63 16 97/62 (74) I & O 05/16/19 05/16/19 05/17/19 14:59 22:59 06:59 Intake Total 720 ml 240 ml 120 ml Balance 720 ml 240 ml 120 ml Current Medications: I have reviewed the current psychotropics carefully including drug interactions. Risk benefit ratio favors no change other than as noted in my dictated progress note. Diagnosis: Problems: (1) Bipolar affective, mixed, severe (2) Bipolar 2 disorder (3) Anxiety disorder (4) Impulse control disorder (5) Mild cognitive impairment (6) Major depressive disorder, recurrent episode (7) Personality disorder in adult NORM BRISENO MD May 17, 2019 21:41
--- NOTE | 2019-05-17 23:35 | NUR ---
Pt located in dayroom this evening. Pt appears less anxious. Compliant with medications. States that he is "getting weaker every day."
[2019-05-18] MEDS: BUDESONIDE 0.5 MG/2 ML NEBU NEB SCH ×3 (04:53→20:05)
[2019-05-18 05:51] VITALS: BP 115/63
[2019-05-18] MEDS: LURASIDONE 40 MG TABLET. PO SCH (07:57)
[2019-05-18] MEDS: OMEGA-3 FATTY ACIDS/FISH OIL 1,000 MG CAPSULE. PO SCH (07:57)
[2019-05-18] MEDS: DOCUSATE SODIUM 100 MG CAPSULE PO SCH ×2 (07:57→19:27)
[2019-05-18] MEDS: POLYETHYLENE GLYCOL 3350 17 GM PACKET. PO SCH (07:57)
[2019-05-18] MEDS: FAMOTIDINE 20 MG TABLET PO SCH (07:57)
[2019-05-18] MEDS: FINASTERIDE 5 MG TABLET PO SCH (07:57)
[2019-05-18] MEDS: NYSTATIN TOPICAL POWDER 15GM BOTTLE. TP SCH ×2 (07:58→19:27)
--- NOTE | 2019-05-18 11:12 | NUR ---
Patient was in the dining room during morning assessment, took medications. Mentioned to staff that he was "getting weaker by the minute." No agitation noted, pt denies pain, will continue to monitor.
[2019-05-18 17:04] VITALS: BP 106/71
[2019-05-18] MEDS: metFORMIN XR 500 MG TAB.ER.24H PO SCH (17:15)
[2019-05-18] MEDS: TAMSULOSIN 0.4 MG CAP.ER.24H. PO SCH (19:23)
[2019-05-18] MEDS: MIRTAZAPINE 7.5 MG TABLET. PO SCH (19:23)
[2019-05-18] MEDS: CYPROHEPTADINE 4 MG TABLET. PO SCH (19:24)
--- NOTE | 2019-05-18 22:03 | PDOC ---
Exam Note: Alvaro Note: Please also refer to the separate dictated note~for this date of service dictated separately.~Patient seen individually. Discussed the patient with Nursing staff reviewed the chart.~Reviewed interim history and current functioning. Reviewed vital signs,~Labs/ Radiology~and current medications noted below. Continue current treatment with the changes noted in the dictated addendum note Assessment: Vital Signs/I&O: Vital Signs Date Time Temp Pulse Resp B/P (MAP) Pulse Ox O2 Delivery O2 Flow Rate FiO2 05/18/19 20:06 96 Room Air 05/18/19 17:04 97.1 61 18 106/71 (83) I & O 05/17/19 05/17/19 05/18/19 15:00 23:00 07:00 Intake Total 840 ml 120 ml 120 ml Balance 840 ml 120 ml 120 ml Current Medications: Meds: Current Medications Medications (Trade) Dose Ordered Sig/Bree Route PRN Reason Start Time Stop Time Status Last Admin Dose Admin Lurasidone HCl (Latuda) 40 mg DAILYWBKFT PO 05/18/19 08:00 05/18/19 07:58 I have reviewed the current psychotropics carefully including drug interactions. Risk benefit ratio favors no change other than as noted in my dictated progress note. 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
--- NOTE | 2019-05-18 23:43 | NUR ---
Nursing Note Pt is compliant and cooperative. Takes po meds, no obsessive statements or comments re weakness and dying.
[2019-05-19 05:36] VITALS: BP 108/66
[2019-05-19] MEDS: OMEGA-3 FATTY ACIDS/FISH OIL 1,000 MG CAPSULE. PO SCH (08:29)
[2019-05-19] MEDS: FAMOTIDINE 20 MG TABLET PO SCH (08:29)
[2019-05-19] MEDS: FINASTERIDE 5 MG TABLET PO SCH (08:29)
[2019-05-19] MEDS: DOCUSATE SODIUM 100 MG CAPSULE PO SCH ×2 (08:29→20:22)
[2019-05-19] MEDS: POLYETHYLENE GLYCOL 3350 17 GM PACKET. PO SCH (08:29)
[2019-05-19] MEDS: LURASIDONE 40 MG TABLET. PO SCH (08:30)
--- NOTE | 2019-05-19 08:56 | PN ---
DATE: 05/16/2019 PSYCHIATRIC PROGRESS NOTE This late entry 05/16/2019 covers elements not covered in my initial note. SUBJECTIVE: I met with the patient evening of 05/16/2019 staffed at a treatment team meeting with the entire team earlier in the day. The patient slept 8 hours. Appetite 75-100%, compliant with medications, still has somatic complaints, but less so than before, less obsessive about this. He has been attending groups. REVIEW OF SYSTEMS: Positive for some weakness and breathing problems. No CV, , eye system symptoms on review. MENTAL STATUS EXAM: The patient is reasonably oriented. Speech is coherent, has some latency. Abstraction fair, computation impaired, language function intact. Mood and affect remain somewhat anxious, labile, but less so than before. LABORATORY DATA: Reviewed. IMPRESSION: Unchanged from initial note. PLAN: We have inquired from the patient's daughter. The patient has never been on Latuda. He does have a diagnosis of bipolar disorder, has depressive symptoms and probably bipolar 2 disorder. We will go ahead and add Latuda 20 mg a day, increasing in 3 days to 40 mg a day and then further increase as clinically indicated. Apparently, he has been on Lamictal in the past, but her response was unclear and that was another consideration. Rest unchanged for now. NORM BRISENO MD DR: ESTHER/joel JOB#: [id number] / [id number]
[2019-05-19] MEDS: NYSTATIN TOPICAL POWDER 15GM BOTTLE. TP SCH ×2 (09:00→20:25)
[2019-05-19] MEDS: BUDESONIDE 0.5 MG/2 ML NEBU NEB SCH ×2 (09:57→20:25)
--- NOTE | 2019-05-19 15:38 | NUR ---
Calm today, no somatic complaints. Did choke on a piece of fruit cocktail at breakfast, able to regurgitate, then continued lunch. Compliant with all cares and meds whole. A & O X4
[2019-05-19 15:56] VITALS: BP 118/78
[2019-05-19] MEDS: metFORMIN XR 500 MG TAB.ER.24H PO SCH (16:48)
[2019-05-19] MEDS: CYPROHEPTADINE 4 MG TABLET. PO SCH (20:22)
[2019-05-19] MEDS: MIRTAZAPINE 7.5 MG TABLET. PO SCH (20:22)
[2019-05-19] MEDS: TAMSULOSIN 0.4 MG CAP.ER.24H. PO SCH (20:24)
--- NOTE | 2019-05-19 22:18 | PN ---
DATE: 05/17/2019 PSYCHIATRIC PROGRESS NOTE This late entry 05/17/2019 covers elements not covered in my initial note. SUBJECTIVE: I met with the patient evening of 05/17/2019. The patient slept 7 hours previous night. He for the first time said he felt "less weak." He is a little less obsessive, anxious. REVIEW OF SYSTEMS: Still complains of breathing problems, but no CV, , GI, eye system symptoms on review. MENTAL STATUS EXAM: Reasonably oriented. Speech is coherent, has some latency. Abstraction fair, computation impaired, language function intact. Mood and affect, less anxious, less depressed. LABORATORY DATA: Reviewed. IMPRESSION: Unchanged from initial note. PLAN: No change from initial note. Maintain Luvox, Seroquel, Remeron, Zyprexa as p.r.n., Latuda initiated 20 mg at bedtime; we will increase gradually as tolerated, and this substituted for Seroquel. NORM BRISENO MD DR: ESTHER/joel JOB#: [id number] / [id number]
--- NOTE | 2019-05-19 23:02 | PDOC ---
Exam Note: Alvaro Note: Please also refer to the separate dictated note~for this date of service dictated separately.~Patient seen individually. Discussed the patient with Nursing staff reviewed the chart.~Reviewed interim history and current functioning. Reviewed vital signs,~Labs/ Radiology~and current medications noted below. Continue current treatment with the changes noted in the dictated addendum note Assessment: Vital Signs/I&O: Vital Signs Date Time Temp Pulse Resp B/P (MAP) Pulse Ox O2 Delivery O2 Flow Rate FiO2 05/19/19 15:56 97.4 61 20 118/78 (91) 97 05/19/19 09:58 Room Air I & O 05/18/19 05/18/19 05/19/19 15:00 23:00 07:00 Intake Total 440 ml 240 ml 240 ml Balance 440 ml 240 ml 240 ml Current Medications: I have reviewed the current psychotropics carefully including drug interactions. Risk benefit ratio favors no change other than as noted in my dictated progress note. 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
--- NOTE | 2019-05-19 23:16 | NUR ---
Pt sitting calmly in dayroom this evening. Compliant with medications. Appears less anxious; did not make any statements about getting weaker.
--- NOTE | 2019-05-20 02:28 | PN ---
DATE: 05/18/2019 PSYCHIATRIC PROGRESS NOTE This late entry of 05/18 covers elements not covered in my initial note. SUBJECTIVE: I met with the patient on the evening of 05/18. The patient slept 7-1/4 hours previous night. Per report from MAKAYLA [place], the patient has done better. He has been less obsessive; at one point said he was feeling better, but then added he is getting "weaker by the minute." Nevertheless, he is less preoccupied with negativity, which is an improvement. REVIEW OF SYSTEMS: Positive for some shortness of breath, but less obsessed about this. No CV, , GI, ENT system symptoms on review. MENTAL STATUS EXAMINATION: Reasonably oriented. Speech is coherent, has some latency. Abstraction fair, computation impaired, language function intact, attention span short. Mood and affect; still anxious, obsessive, somewhat labile, but less so than before. LABORATORY DATA: Reviewed. IMPRESSION: Unchanged from initial note. PLAN: No change from initial note. NORM BRISENO MD DR: ESTHER/joel JOB#: [id number] / [id number]
[2019-05-20 06:20] VITALS: BP 105/67
[2019-05-20] MEDS: DOCUSATE SODIUM 100 MG CAPSULE PO SCH ×2 (09:14→19:51)
[2019-05-20] MEDS: OMEGA-3 FATTY ACIDS/FISH OIL 1,000 MG CAPSULE. PO SCH (09:14)
[2019-05-20] MEDS: FINASTERIDE 5 MG TABLET PO SCH (09:14)
[2019-05-20] MEDS: FAMOTIDINE 20 MG TABLET PO SCH (09:14)
[2019-05-20] MEDS: POLYETHYLENE GLYCOL 3350 17 GM PACKET. PO SCH (09:14)
[2019-05-20] MEDS: BUDESONIDE 0.5 MG/2 ML NEBU NEB SCH ×2 (09:44→19:14)
[2019-05-20] MEDS: LURASIDONE 40 MG TABLET. PO SCH (10:05)
[2019-05-20] MEDS: IPRATRPIUM/ALBUTEROL 0.5/2.5MG 3 ML NEBU. NEB PRN (13:20)
[2019-05-20] MEDS: NYSTATIN TOPICAL POWDER 15GM BOTTLE. TP SCH ×2 (13:20→19:52)
[2019-05-20 15:56] VITALS: BP 107/71
[2019-05-20] MEDS: metFORMIN XR 500 MG TAB.ER.24H PO SCH (17:25)
--- NOTE | 2019-05-20 19:12 | NUR ---
Calm and compliant today. Req. and given a PRN breathing tx. at 1300. Social with peers, A & O X4.
[2019-05-20] MEDS: MIRTAZAPINE 7.5 MG TABLET. PO SCH (19:51)
[2019-05-20] MEDS: TAMSULOSIN 0.4 MG CAP.ER.24H. PO SCH (19:51)
[2019-05-20] MEDS: CYPROHEPTADINE 4 MG TABLET. PO SCH (19:51)
--- NOTE | 2019-05-20 21:38 | PDOC ---
Exam Note: Alvaro Note: Please also refer to the separate dictated note~for this date of service dictated separately.~Patient seen individually. Discussed the patient with Nursing staff reviewed the chart.~Reviewed interim history and current functioning. Reviewed vital signs,~Labs/ Radiology~and current medications noted below. Continue current treatment with the changes noted in the dictated addendum note Assessment: Vital Signs/I&O: Vital Signs Date Time Temp Pulse Resp B/P (MAP) Pulse Ox O2 Delivery O2 Flow Rate FiO2 05/20/19 19:17 96 Room Air 05/20/19 15:56 98.4 77 16 107/71 (83) I & O 05/19/19 05/19/19 05/20/19 15:00 23:00 07:00 Intake Total 960 ml 480 ml Balance 960 ml 480 ml Current Medications: I have reviewed the current psychotropics carefully including drug interactions. Risk benefit ratio favors no change other than as noted in my dictated progress note. Diagnosis: Problems: (1) Bipolar affective, mixed, severe (2) Bipolar 2 disorder (3) Anxiety disorder (4) Impulse control disorder (5) Mild cognitive impairment (6) Major depressive disorder, recurrent episode (7) Personality disorder in adult NORM BRISENO MD May 20, 2019 21:38
--- NOTE | 2019-05-20 23:44 | NUR ---
Pt sitting calmly in dayroom this evening. Compliant with whole medications. Pleasant and interactive with staff and peers. Appears less anxious.
[2019-05-21 06:09] VITALS: BP 110/64
[2019-05-21] MEDS: FAMOTIDINE 20 MG TABLET PO SCH (08:34)
[2019-05-21] MEDS: FINASTERIDE 5 MG TABLET PO SCH (08:34)
[2019-05-21] MEDS: DOCUSATE SODIUM 100 MG CAPSULE PO SCH ×2 (08:34→20:10)
[2019-05-21] MEDS: POLYETHYLENE GLYCOL 3350 17 GM PACKET. PO SCH (08:34)
[2019-05-21] MEDS: OMEGA-3 FATTY ACIDS/FISH OIL 1,000 MG CAPSULE. PO SCH (08:35)
[2019-05-21] MEDS: NYSTATIN TOPICAL POWDER 15GM BOTTLE. TP SCH ×2 (08:35→20:11)
[2019-05-21] MEDS: BUDESONIDE 0.5 MG/2 ML NEBU NEB SCH ×2 (11:38→20:11)
[2019-05-21 16:06] VITALS: BP 104/68
[2019-05-21] MEDS: metFORMIN XR 500 MG TAB.ER.24H PO SCH (16:43)
--- NOTE | 2019-05-21 18:28 | NUR ---
As SW passed pt in the hallway, SW noted that pt appeared to be very "sporty" as he is wearing a sports jacket and matching pants. Pt smiled and reports that he is "feeling pretty good today". SW praised pt for being able to report that and will speak with pt and pt family tomorrow to make plans for discharge.
--- NOTE | 2019-05-21 18:38 | NUR ---
Pt calm, compliant during morning med pass and assessment. Pt in day room for most of the day. Participated in group.
[2019-05-21] MEDS: MIRTAZAPINE 7.5 MG TABLET. PO SCH (20:09)
[2019-05-21] MEDS: CYPROHEPTADINE 4 MG TABLET. PO SCH (20:09)
[2019-05-21] MEDS: TAMSULOSIN 0.4 MG CAP.ER.24H. PO SCH (20:09)
--- NOTE | 2019-05-21 21:41 | PDOC ---
Exam Note: Alvaro Note: Please also refer to the separate dictated note~for this date of service dictated separately.~Patient seen individually. Discussed the patient with Nursing staff reviewed the chart.~Reviewed interim history and current functioning. Reviewed vital signs,~Labs/ Radiology~and current medications noted below. Continue current treatment with the changes noted in the dictated addendum note Assessment: Vital Signs/I&O: Vital Signs Date Time Temp Pulse Resp B/P (MAP) Pulse Ox O2 Delivery O2 Flow Rate FiO2 05/21/19 20:12 95 Room Air 05/21/19 16:06 98.0 64 18 104/68 (80) I & O 05/20/19 05/20/19 05/21/19 15:00 23:00 07:00 Intake Total 600 ml 240 ml 240 ml Balance 600 ml 240 ml 240 ml Current Medications: I have reviewed the current psychotropics carefully including drug interactions. Risk benefit ratio favors no change other than as noted in my dictated progress note. Diagnosis: Problems: (1) Bipolar affective, mixed, severe (2) Bipolar 2 disorder (3) Anxiety disorder (4) Impulse control disorder (5) Mild cognitive impairment (6) Major depressive disorder, recurrent episode (7) Personality disorder in adult NORM BRISENO MD May 21, 2019 21:41
--- NOTE | 2019-05-22 01:00 | NUR ---
Nursing Note The patient was located in the day room for his medication and assessment. The patient took his medication whole and was appropriate during interactions. The patient is currently sleeping in his room.
--- NOTE | 2019-05-22 04:03 | PN ---
DATE: 05/19/2019 PSYCHIATRIC PROGRESS NOTE This late entry of 05/19 covers the elements not covered in my initial note. SUBJECTIVE: I met with the patient on the evening of 05/19. The patient slept 7 hours the previous night. He remains somewhat anxious, obsessive, somatically preoccupied, but much less so than before and less fixated on the breathing problems. REVIEW OF SYSTEMS: No CV, , GI, eye system symptoms on review. Still had some breathing problem preoccupation. MENTAL STATUS EXAMINATION: Reasonably oriented. Speech is coherent. Abstraction fair, computation impaired, language function intact, attention span short. Mood and affect, somewhat anxious, withdrawn. LABORATORY DATA: Reviewed. IMPRESSION: Unchanged from initial note. PLAN: No change from initial note. MAN Suman BRISENO MD DR: ESTHER/joel JOB#: [id number] / [id number]
--- NOTE | 2019-05-22 04:03 | PN ---
DATE: 05/20/2019 PSYCHIATRIC PROGRESS NOTE This late entry 05/20/2019 covers the elements not covered in my initial note. SUBJECTIVE: I met with the patient in the evening of 05/20/2019. The patient slept 7 hours previous night. He remains somewhat somatically preoccupied, but less obsessed about his breathing. REVIEW OF SYSTEMS: Positive for difficulty breathing, some problems with his eyes. No CV, , GI system symptoms on review. MENTAL STATUS EXAM: Reasonably oriented. Speech is coherent, abstraction fair, computation impaired, language function intact. Mood and affect is improved. LABORATORY DATA: Reviewed. IMPRESSION: Bipolar disorder, depressed; anxiety disorder, unspecified; obsessive-compulsive disorder. PLAN: Latuda is being increased gradually to 60 mg a day. Continue Trileptal, Remeron, Luvox and Zyprexa as p.r.n. for now. MAN Suman BRISENO MD DR: ESTHER/joel JOB#: [id number] / [id number]
[2019-05-22 06:24] VITALS: BP 122/72
[2019-05-22 07:06] LABS: BASO % 1 % (0-3); EOS # 0.3 x10^3/uL (0.0-0.7); EOS % 6 % (0-3); HEMATOCRIT 43.9 % (39.0-53.0); HEMOGLOBIN 14.7 g/dL (13.0-17.5); LYMPH # 1.6 x10^3/uL (1.0-4.8); LYMPH % 29 % (24-48); MEAN CORPUSCULAR HEMOGLOBIN 31 pg (25-35); MEAN CORPUSCULAR HGB CONC 34 g/dL (31-37); MEAN CORPUSCULAR VOLUME 91 fL (79-100); MONO # 0.4 x10^3/uL (0.0-1.1); MONO % 8 % (0-9); NEUT # 3.1 x10^3uL (1.8-7.7); NEUT % 57 % (31-73); PLATELET COUNT 181 x10^3/uL (140-400); RED BLOOD COUNT 4.82 x10^6/uL (4.30-5.70); RED CELL DISTRIBUTION WIDTH 14.5 % (11.5-14.5); WHITE BLOOD COUNT 5.4 x10^3/uL (4.0-11.0)
[2019-05-22 07:23] LABS: CALCIUM 8.7 mg/dL (8.5-10.1); CREATININE 1.3 mg/dL (0.7-1.3); GFR 52.7; POTASSIUM 4.3 mmol/L (3.5-5.1); TOTAL BILIRUBIN 0.3 mg/dL (0.2-1.0)
[2019-05-22] MEDS: OMEGA-3 FATTY ACIDS/FISH OIL 1,000 MG CAPSULE. PO SCH (08:27)
[2019-05-22] MEDS: FAMOTIDINE 20 MG TABLET PO SCH (08:27)
[2019-05-22] MEDS: DOCUSATE SODIUM 100 MG CAPSULE PO SCH ×2 (08:28→20:34)
[2019-05-22] MEDS: FINASTERIDE 5 MG TABLET PO SCH (08:28)
[2019-05-22] MEDS: LURASIDONE 40 MG TABLET. PO SCH (08:29)
[2019-05-22] MEDS: POLYETHYLENE GLYCOL 3350 17 GM PACKET. PO SCH (08:29)
[2019-05-22] MEDS: NYSTATIN TOPICAL POWDER 15GM BOTTLE. TP SCH ×2 (08:31→20:35)
[2019-05-22] MEDS: BUDESONIDE 0.5 MG/2 ML NEBU NEB SCH ×2 (10:49→22:49)
[2019-05-22 16:57] VITALS: BP 120/73
[2019-05-22] MEDS: metFORMIN XR 500 MG TAB.ER.24H PO SCH (17:32)
[2019-05-22] MEDS: MIRTAZAPINE 7.5 MG TABLET. PO SCH (20:35)
[2019-05-22] MEDS: CYPROHEPTADINE 4 MG TABLET. PO SCH (20:35)
[2019-05-22] MEDS: TAMSULOSIN 0.4 MG CAP.ER.24H. PO SCH (20:35)
--- NOTE | 2019-05-22 22:04 | PDOC ---
Exam Note: Alvaro Note: Please also refer to the separate dictated note~for this date of service dictated separately.~Patient seen individually. Discussed the patient with Nursing staff reviewed the chart.~Reviewed interim history and current functioning. Reviewed vital signs,~Labs/ Radiology~and current medications noted below. Continue current treatment with the changes noted in the dictated addendum note Assessment: Vital Signs/I&O: Vital Signs Date Time Temp Pulse Resp B/P (MAP) Pulse Ox O2 Delivery O2 Flow Rate FiO2 05/22/19 20:50 96 Room Air 05/22/19 16:57 97.6 61 16 120/73 (89) I & O 05/21/19 05/21/19 05/22/19 15:00 23:00 07:00 Intake Total 600 ml 240 ml 240 ml Balance 600 ml 240 ml 240 ml Labs: Laboratory Tests Test 05/22/19 06:28 White Blood Count 5.4 x10^3/uL (4.0-11.0) Red Blood Count 4.82 x10^6/uL (4.30-5.70) Hemoglobin 14.7 g/dL (13.0-17.5) Hematocrit 43.9 % (39.0-53.0) Mean Corpuscular Volume 91 fL (79-100) Mean Corpuscular Hemoglobin 31 pg (25-35) Mean Corpuscular Hemoglobin Concent 34 g/dL (31-37) Red Cell Distribution Width 14.5 % (11.5-14.5) Platelet Count 181 x10^3/uL (140-400) Neutrophils (%) (Auto) 57 % (31-73) Lymphocytes (%) (Auto) 29 % (24-48) Monocytes (%) (Auto) 8 % (0-9) Eosinophils (%) (Auto) 6 % (0-3) H Basophils (%) (Auto) 1 % (0-3) Neutrophils # (Auto) 3.1 x10^3uL (1.8-7.7) Lymphocytes # (Auto) 1.6 x10^3/uL (1.0-4.8) Monocytes # (Auto) 0.4 x10^3/uL (0.0-1.1) Eosinophils # (Auto) 0.3 x10^3/uL (0.0-0.7) Basophils # (Auto) 0.0 x10^3/uL (0.0-0.2) Sodium Level 142 mmol/L (136-145) Potassium Level 4.3 mmol/L (3.5-5.1) Chloride Level 107 mmol/L (98-107) Carbon Dioxide Level 30 mmol/L (21-32) Anion Gap 5 (6-14) L Blood Urea Nitrogen 34 mg/dL (8-26) H Creatinine 1.3 mg/dL (0.7-1.3) Estimated GFR (Cockcroft-Gault) 52.7 BUN/Creatinine Ratio 26 (6-20) H Glucose Level 89 mg/dL (70-99) Calcium Level 8.7 mg/dL (8.5-10.1) Total Bilirubin 0.3 mg/dL (0.2-1.0) Aspartate Amino Transferase (AST) 15 U/L (15-37) Alanine Aminotransferase (ALT) 17 U/L (16-63) Alkaline Phosphatase 64 U/L (46-116) Total Protein 6.0 g/dL (6.4-8.2) L Albumin 3.0 g/dL (3.4-5.0) L Albumin/Globulin Ratio 1.0 (1.0-1.7) Current Medications: Meds: Current Medications Medications (Trade) Dose Ordered Sig/Bree Route PRN Reason Start Time Stop Time Status Last Admin Dose Admin Lurasidone HCl (Latuda) 60 mg DAILYWBKFT PO 05/22/19 08:00 05/22/19 08:31 I have reviewed the current psychotropics carefully including drug interactions. Risk benefit ratio favors no change other than as noted in my dictated progress note. Diagnosis: Problems: (1) Bipolar affective, mixed, severe (2) Bipolar 2 disorder (3) Anxiety disorder (4) Impulse control disorder (5) Mild cognitive impairment (6) Major depressive disorder, recurrent episode (7) Personality disorder in adult NORM BRISENO MD May 22, 2019 22:04
--- NOTE | 2019-05-22 22:37 | NUR ---
Nursing Note The patient was located in the day room for his medication and assessment. The patient took his medication whole and was appropriate during interactions with this nurse. The patient is currently sleeping in his room.
--- NOTE | 2019-05-23 02:34 | PN ---
DATE: 05/21/2019 PSYCHIATRIC PROGRESS NOTE This late entry 05/21/2019 covers the elements not covered in my initial note. SUBJECTIVE: I met with the patient in the evening of 05/21/2019. Overall, per nursing report, the patient has been less anxious, less somatically preoccupied. He still had questions about his breathing treatment and some eye problems as I met with him in the evening. REVIEW OF SYSTEMS: Other than above, no CV, , GI system symptoms on review. MENTAL STATUS EXAM: Reasonably oriented. Speech is coherent, has some latency. Abstraction fair, computation impaired, language function intact, attention span short. Mood and affect somewhat anxious, still obsessive, but much improved. LABORATORY DATA: Reviewed. IMPRESSION: Unchanged from initial note. PLAN: No change from initial note. MAN Suman BRISENO MD DR: ESTHER/joel JOB#: [id number] / [id number]
[2019-05-23 06:51] VITALS: BP 105/66
[2019-05-23] MEDS: LURASIDONE 40 MG TABLET. PO SCH (09:12)
[2019-05-23] MEDS: DOCUSATE SODIUM 100 MG CAPSULE PO SCH ×2 (09:13→20:35)
[2019-05-23] MEDS: OMEGA-3 FATTY ACIDS/FISH OIL 1,000 MG CAPSULE. PO SCH (09:13)
[2019-05-23] MEDS: FAMOTIDINE 20 MG TABLET PO SCH (09:13)
[2019-05-23] MEDS: POLYETHYLENE GLYCOL 3350 17 GM PACKET. PO SCH (09:13)
[2019-05-23] MEDS: FINASTERIDE 5 MG TABLET PO SCH (09:13)
[2019-05-23] MEDS: NYSTATIN TOPICAL POWDER 15GM BOTTLE. TP SCH ×2 (09:15→20:37)
[2019-05-23] MEDS: BUDESONIDE 0.5 MG/2 ML NEBU NEB SCH ×2 (10:18→20:00)
--- NOTE | 2019-05-23 11:38 | NUR ---
Pt calm and compliant today. States that he is "getting weaker everyday."
[2019-05-23] MEDS: metFORMIN XR 500 MG TAB.ER.24H PO SCH (17:04)
[2019-05-23 17:11] VITALS: BP 128/78
[2019-05-23] MEDS: MIRTAZAPINE 7.5 MG TABLET. PO SCH (20:35)
[2019-05-23] MEDS: CYPROHEPTADINE 4 MG TABLET. PO SCH (20:35)
[2019-05-23] MEDS: TAMSULOSIN 0.4 MG CAP.ER.24H. PO SCH (20:35)
--- NOTE | 2019-05-23 21:47 | PDOC ---
Exam Note: Alvaro Note: Please also refer to the separate dictated note~for this date of service dictated separately.~Patient seen individually. Discussed the patient with Nursing staff reviewed the chart.~Reviewed interim history and current functioning. Reviewed vital signs,~Labs/ Radiology~and current medications noted below. Continue current treatment with the changes noted in the dictated addendum note Assessment: Vital Signs/I&O: Vital Signs Date Time Temp Pulse Resp B/P (MAP) Pulse Ox O2 Delivery O2 Flow Rate FiO2 05/23/19 17:11 97.3 69 20 128/78 (95) 97 05/23/19 10:19 Room Air I & O 05/22/19 05/22/19 05/23/19 15:00 23:00 07:00 Intake Total 840 ml 720 ml Balance 840 ml 720 ml Current Medications: I have reviewed the current psychotropics carefully including drug interactions. Risk benefit ratio favors no change other than as noted in my dictated progress note. Diagnosis: Problems: (1) Bipolar affective, mixed, severe (2) Bipolar 2 disorder (3) Anxiety disorder (4) Impulse control disorder (5) Mild cognitive impairment (6) Major depressive disorder, recurrent episode (7) Personality disorder in adult NORM BRISENO MD May 23, 2019 21:47
--- NOTE | 2019-05-24 02:16 | PN ---
DATE: 05/22/2019 PSYCHIATRIC PROGRESS NOTE This late entry of 05/22 covers elements not covered in my initial note. SUBJECTIVE: I met with the patient in the evening. The patient slept 6-1/2 hours the previous night. He still feels he is getting weaker. Albumin is low. He undressed himself and his room door was open and female patients were walking by, able to see him. The nursing staff made him aware of this and he had shut the door after that. He tries to get the nursing staff to put powder on his groin area and staff are encouraging him to do it himself. He may be showing some symptoms of hypomania, but not clear as yet. REVIEW OF SYSTEMS: No CV, , pulmonary, eye system symptoms on review. He has vague somatic symptoms. MENTAL STATUS EXAMINATION: Reasonably oriented. Speech is coherent, abstraction fair, computation impaired, language function intact, attention span short. Mood and affect remain somewhat anxious, at times depressed, other times a little labile. LABORATORY DATA: Reviewed. IMPRESSION: Unchanged from initial note. Bipolar disorder mixed with psychotic features; anxiety disorder, unspecified; obsessive-compulsive disorder, impulse control disorder. PLAN: Continue Luvox, Remeron, Zyprexa as p.r.n., Trileptal 600 mg b.i.d.; Latuda 40 mg a day, increased to 60 mg a day on 05/22. Rest unchanged. MAN Suman BRISENO MD DR: ESTHER/joel JOB#: [id number] / [id number]
[2019-05-24] MEDS: BUDESONIDE 0.5 MG/2 ML NEBU NEB SCH ×3 (05:03→20:05)
[2019-05-24 06:33] VITALS: BP 106/56
[2019-05-24] MEDS: POLYETHYLENE GLYCOL 3350 17 GM PACKET. PO SCH (07:23)
[2019-05-24] MEDS: DOCUSATE SODIUM 100 MG CAPSULE PO SCH ×2 (07:23→20:25)
[2019-05-24] MEDS: OMEGA-3 FATTY ACIDS/FISH OIL 1,000 MG CAPSULE. PO SCH (07:23)
[2019-05-24] MEDS: FAMOTIDINE 20 MG TABLET PO SCH (07:23)
[2019-05-24] MEDS: FINASTERIDE 5 MG TABLET PO SCH (07:23)
[2019-05-24] MEDS: LURASIDONE 40 MG TABLET. PO SCH (07:24)
[2019-05-24] MEDS: NYSTATIN TOPICAL POWDER 15GM BOTTLE. TP SCH ×2 (07:25→20:27)
--- NOTE | 2019-05-24 10:06 | NUR ---
WEEKLY NOTE: Pt is eating roughly 75-100% of meals and sleeping 7-8 hours per night. Pt is less somatic but does report being week. Pt did have an episode in which he was laying in bed with no clothes on and just "waiting for the nurse to come and apply my powder". Pt is attending group more and is very interactive with staff and peers. It has been noted that pt appears to be more manic. Pt will plan to discharge home with Shu PERRIN for the next 7-10 days. Addendum: 05/24/19 at 1024 by JOHANNA MANCILLA SW Pt Latuda will increase to 80mg daily.
--- NOTE | 2019-05-24 10:24 | NUR ---
WEEKLY ACTIVITY THERAPY NOTE Date of Admission: 04/19/2019 Date of AT Assessment: 04/22/2019 Goal aimed:to increase relaxation techniques and leisure awareness Initial Goal:Pt. will participate in at least five Activity Therapy groups per week. Weekly progress towards goal: exceeded, 06/02 Group participation level: moderate Weekly highlights: smiling during ball toss on Tuesday- fully engaged Behaviors observed: mostly disinterested but around group often this week, minimal interaction with peers, calm, complained of feeling weak on Tuesday Plan: no change to goal at this time Beneficial adaptations: invitations to group (agreed to be woken up if sleeping), encouragement and repeat, better response in morning group
--- NOTE | 2019-05-24 13:47 | NUR ---
Patient in the day room. Appropriate and interactive with staff and peers. Calm, cooperative and compliant with medications and assessments. Denies pain or discomfort, denies SI/HI.
[2019-05-24 15:43] VITALS: BP 109/65
[2019-05-24] MEDS: metFORMIN XR 500 MG TAB.ER.24H PO SCH (16:33)
[2019-05-24] MEDS: TAMSULOSIN 0.4 MG CAP.ER.24H. PO SCH (20:25)
[2019-05-24] MEDS: CYPROHEPTADINE 4 MG TABLET. PO SCH (20:26)
[2019-05-24] MEDS: MIRTAZAPINE 7.5 MG TABLET. PO SCH (20:26)
--- NOTE | 2019-05-24 21:54 | PDOC ---
Exam Note: Alvaro Note: Please also refer to the separate dictated note~for this date of service dictated separately.~Patient seen individually. Discussed the patient with Nursing staff reviewed the chart.~Reviewed interim history and current functioning. Reviewed vital signs,~Labs/ Radiology~and current medications noted below. Continue current treatment with the changes noted in the dictated addendum note Assessment: Vital Signs/I&O: Vital Signs Date Time Temp Pulse Resp B/P (MAP) Pulse Ox O2 Delivery O2 Flow Rate FiO2 05/24/19 20:10 95 Room Air 05/24/19 15:43 97.8 63 20 109/65 (80) I & O 05/23/19 05/23/19 05/24/19 14:59 22:59 06:59 Intake Total 960 ml 480 ml 240 ml Balance 960 ml 480 ml 240 ml Current Medications: I have reviewed the current psychotropics carefully including drug interactions. Risk benefit ratio favors no change other than as noted in my dictated progress note. Diagnosis: Problems: (1) Bipolar affective, mixed, severe (2) Bipolar 2 disorder (3) Anxiety disorder (4) Impulse control disorder (5) Mild cognitive impairment (6) Major depressive disorder, recurrent episode (7) Personality disorder in adult NORM BRISENO MD May 24, 2019 21:54
--- NOTE | 2019-05-24 23:51 | NUR ---
Nursing Note: Assumed care of pt. this evening, he was sitting in the day room. He has been calm, compliant, and interacting appropriately with staff and other pt's. He has been compliant with taking his HS meds whole this evening. No agitation or aggression noted at this time. Pt. did not voice any concerns that he can not breath.
[2019-05-25 05:10] VITALS: BP 90/54
[2019-05-25] MEDS: POLYETHYLENE GLYCOL 3350 17 GM PACKET. PO SCH (08:51)
[2019-05-25] MEDS: FINASTERIDE 5 MG TABLET PO SCH (08:51)
[2019-05-25] MEDS: DOCUSATE SODIUM 100 MG CAPSULE PO SCH ×2 (08:51→21:22)
[2019-05-25] MEDS: FAMOTIDINE 20 MG TABLET PO SCH (08:52)
[2019-05-25] MEDS: OMEGA-3 FATTY ACIDS/FISH OIL 1,000 MG CAPSULE. PO SCH (08:52)
[2019-05-25] MEDS: NYSTATIN TOPICAL POWDER 15GM BOTTLE. TP SCH ×2 (08:56→22:08)
[2019-05-25] MEDS: LURASIDONE 40 MG TABLET. PO SCH (08:56)
[2019-05-25] MEDS: BUDESONIDE 0.5 MG/2 ML NEBU NEB SCH ×2 (11:28→21:34)
--- NOTE | 2019-05-25 11:40 | NUR ---
Nursing Note: Pt approached the coy nurses [facility] to inform staff that RT needed to be told that he "would be in his room and ready for his breathing treatment." Informed pt that RT has always made sure to find him for his treatments in the past and nothing would be different this day. Pt began to talk over this nurse and walked away. When RT staff arrived, pt was demanding and rude. RT staff explained to pt that his behavior was unacceptable and that she did not deserve to be spoken to in that manner. Pt did not apologize or acknowledge. When his treatment was finished, pt asked if he had truly rec the full treatment because he "didn't think it was empty."
--- NOTE | 2019-05-25 13:01 | PN ---
DATE: 05/24/2019 This late entry 05/24/2019 covers elements not covered in my initial note. SUBJECTIVE: I met with the patient evening of 05/24/2019. The patient was also staffed at a treatment team meeting with the entire team in the morning. The patient is alert, oriented x 3. Appetite 50-75%, compliant with meds, cares and shower, slept 7-1/4 hours, calmer, compliant, still somewhat somatically preoccupied. REVIEW OF SYSTEMS: Difficulty with breathing. No CV, , pulmonary, eye system symptoms on review. MENTAL STATUS EXAM: Reasonably oriented. Speech is coherent, has some latency. Abstraction fair, computation impaired, language function intact, attention span short. Mood and affect still somewhat anxious, labile, but somewhat improved. LABORATORY DATA: Reviewed. IMPRESSION: Unchanged from initial note. PLAN: No change from initial note, but after he has been on Latuda 60 mg a day for 3 days, we will increase to 80 mg a day. Rest unchanged. NORM BRISENO MD DR: ESTHER/joel JOB#: [id number] / [id number]
--- NOTE | 2019-05-25 15:53 | NUR ---
Nursing Note: Pt activated the bathroom alarm, when this nurse and nurse trainee arrived pt didn't actually need help. Pt stated, "I didn't know if I could make it back. I'm so weak." Informed pt that if he is too weak to go to the bathroom without an escort then he needs to be in the day room with staff until after dinner so that it can be determined if he is safe to be left alone in his room. Pt was not happy with plan; staff informed. Will continue to monitor.
[2019-05-25 16:27] VITALS: BP 102/59
[2019-05-25] MEDS: metFORMIN XR 500 MG TAB.ER.24H PO SCH (17:28)
--- NOTE | 2019-05-25 18:27 | NUR ---
Nursing note: Pt was in the hallway for medication administration and assessment. He was cooperative and compliant with both the assessment and the med administration, taking his meds whole. He has complained several times throughout the day of feeling weak and unsure about being able to walk to where he was wanting to go.
[2019-05-25] MEDS: CYPROHEPTADINE 4 MG TABLET. PO SCH (21:22)
[2019-05-25] MEDS: MIRTAZAPINE 7.5 MG TABLET. PO SCH (21:22)
[2019-05-25] MEDS: TAMSULOSIN 0.4 MG CAP.ER.24H. PO SCH (21:22)
--- NOTE | 2019-05-25 21:45 | PDOC ---
Exam Note: Alvaro Note: Please also refer to the separate dictated note~for this date of service dictated separately.~Patient seen individually. Discussed the patient with Nursing staff reviewed the chart.~Reviewed interim history and current functioning. Reviewed vital signs,~Labs/ Radiology~and current medications noted below. Continue current treatment with the changes noted in the dictated addendum note Assessment: Vital Signs/I&O: Vital Signs Date Time Temp Pulse Resp B/P (MAP) Pulse Ox O2 Delivery O2 Flow Rate FiO2 05/25/19 20:18 96 Room Air 05/25/19 16:27 98.6 63 16 102/59 (73) I & O 05/24/19 05/24/19 05/25/19 15:00 23:00 07:00 Intake Total 960 ml 480 ml 240 ml Balance 960 ml 480 ml 240 ml Current Medications: Meds: Current Medications Medications (Trade) Dose Ordered Sig/Bree Route PRN Reason Start Time Stop Time Status Last Admin Dose Admin Lurasidone HCl (Latuda) 80 mg [id number] PO 05/25/19 08:00 05/25/19 08:56 I have reviewed the current psychotropics carefully including drug interactions. Risk benefit ratio favors no change other than as noted in my dictated progress note. Diagnosis: Problems: (1) Bipolar affective, mixed, severe (2) Bipolar 2 disorder (3) Anxiety disorder (4) Impulse control disorder (5) Mild cognitive impairment (6) Major depressive disorder, recurrent episode (7) Personality disorder in adult NORM BRISENO MD May 25, 2019 21:45
--- NOTE | 2019-05-25 23:21 | NUR ---
Nursing Note: Assumed care of pt. this evening, he was out in the day room. He has been calm, voice c/o being weak, and compliant. He has been compliant with taking his HS meds whole this evening. This film writer explain to pt. that if he in bed all the time, his muscle will get weak. Pt. later on in the evening, was walking in the hallway for a bit. No agitation or aggression noted at this time.
--- NOTE | 2019-05-26 02:23 | PN ---
DATE: 05/23/2019 PSYCHIATRIC PROGRESS NOTE This late entry 05/23/2019 covers elements not covered in my initial note. SUBJECTIVE: I met with the patient in the evening. Per MAKAYLA Mckeon, the patient slept 7 hours previous night. He did well until the evening and then he was quite obsessive, anxious, again somewhat fixated on his breathing, but not as much as before. He was agitated with his roommate. REVIEW OF SYSTEMS: No CV, , pulmonary, eye system symptoms on review other than above. MENTAL STATUS EXAM: Reasonably oriented. Speech is coherent, abstraction fair, computation impaired, language function intact, attention span short. Mood and affect remain somewhat anxious. LABORATORY DATA: Reviewed. IMPRESSION: Unchanged from initial note. PLAN: No change from initial note. MAN Suman BRISENO MD DR: ESTHER/joel JOB#: [id number] / [id number]
[2019-05-26 05:17] VITALS: BP 99/63
[2019-05-26] MEDS: OMEGA-3 FATTY ACIDS/FISH OIL 1,000 MG CAPSULE. PO SCH (08:55)
[2019-05-26] MEDS: POLYETHYLENE GLYCOL 3350 17 GM PACKET. PO SCH (08:55)
[2019-05-26] MEDS: FAMOTIDINE 20 MG TABLET PO SCH (08:55)
[2019-05-26] MEDS: DOCUSATE SODIUM 100 MG CAPSULE PO SCH ×2 (08:55→22:09)
[2019-05-26] MEDS: FINASTERIDE 5 MG TABLET PO SCH (08:55)
[2019-05-26] MEDS: NYSTATIN TOPICAL POWDER 15GM BOTTLE. TP SCH ×2 (08:56→22:08)
[2019-05-26] MEDS: LURASIDONE 40 MG TABLET. PO SCH (08:57)
[2019-05-26] MEDS: BUDESONIDE 0.5 MG/2 ML NEBU NEB SCH ×2 (10:43→22:08)
--- NOTE | 2019-05-26 10:58 | NUR ---
Pt calm, compliant during morning med pass and assessment. Pt in day room for most of the day.
[2019-05-26 15:32] VITALS: BP 105/70
[2019-05-26] MEDS: metFORMIN XR 500 MG TAB.ER.24H PO SCH (16:58)
[2019-05-26] MEDS: MIRTAZAPINE 7.5 MG TABLET. PO SCH (22:09)
[2019-05-26] MEDS: CYPROHEPTADINE 4 MG TABLET. PO SCH (22:09)
[2019-05-26] MEDS: TAMSULOSIN 0.4 MG CAP.ER.24H. PO SCH (22:10)
--- NOTE | 2019-05-26 22:17 | PDOC ---
Exam Note: Alvaro Note: Please also refer to the separate dictated note~for this date of service dictated separately.~Patient seen individually. Discussed the patient with Nursing staff reviewed the chart.~Reviewed interim history and current functioning. Reviewed vital signs,~Labs/ Radiology~and current medications noted below. Continue current treatment with the changes noted in the dictated addendum note Assessment: Vital Signs/I&O: Vital Signs Date Time Temp Pulse Resp B/P (MAP) Pulse Ox O2 Delivery O2 Flow Rate FiO2 05/26/19 15:32 98.1 69 16 105/70 (82) 93 05/26/19 10:45 Room Air I & O 05/25/19 05/25/19 05/26/19 15:00 23:00 07:00 Intake Total 1200 ml 480 ml 480 ml Balance 1200 ml 480 ml 480 ml Current Medications: I have reviewed the current psychotropics carefully including drug interactions. Risk benefit ratio favors no change other than as noted in my dictated progress note. Diagnosis: Problems: (1) Bipolar affective, mixed, severe (2) Bipolar 2 disorder (3) Anxiety disorder (4) Impulse control disorder (5) Mild cognitive impairment (6) Major depressive disorder, recurrent episode (7) Personality disorder in adult NORM BRISENO MD May 26, 2019 22:17
--- NOTE | 2019-05-26 22:52 | NUR ---
Nursing Note: Assumed care of pt. this evening, he was sitting out in the day room. He has been calm, cooperative, and less withdrawn this evening. He has been compliant with taking his HS meds whole this evening. No aggression or agitation noted at this time.
[2019-05-27 05:26] VITALS: BP 134/82
[2019-05-27] MEDS: LURASIDONE 40 MG TABLET. PO SCH (09:28)
[2019-05-27] MEDS: DOCUSATE SODIUM 100 MG CAPSULE PO SCH ×2 (09:28→20:20)
[2019-05-27] MEDS: POLYETHYLENE GLYCOL 3350 17 GM PACKET. PO SCH (09:29)
[2019-05-27] MEDS: FINASTERIDE 5 MG TABLET PO SCH (09:29)
[2019-05-27] MEDS: OMEGA-3 FATTY ACIDS/FISH OIL 1,000 MG CAPSULE. PO SCH (09:29)
[2019-05-27] MEDS: NYSTATIN TOPICAL POWDER 15GM BOTTLE. TP SCH ×2 (09:29→20:24)
[2019-05-27] MEDS: FAMOTIDINE 20 MG TABLET PO SCH (09:29)
[2019-05-27 09:49] LABS: BASO % 1 % (0-3); EOS # 0.2 x10^3/uL (0.0-0.7); EOS % 3 % (0-3); HEMATOCRIT 46.7 % (39.0-53.0); HEMOGLOBIN 15.5 g/dL (13.0-17.5); LYMPH # 1.1 x10^3/uL (1.0-4.8); LYMPH % 20 % (24-48); MEAN CORPUSCULAR HEMOGLOBIN 31 pg (25-35); MEAN CORPUSCULAR HGB CONC 33 g/dL (31-37); MEAN CORPUSCULAR VOLUME 93 fL (79-100); MONO # 0.2 x10^3/uL (0.0-1.1); MONO % 5 % (0-9); NEUT # 3.7 x10^3uL (1.8-7.7); NEUT % 71 % (31-73); PLATELET COUNT 188 x10^3/uL (140-400); RED BLOOD COUNT 5.05 x10^6/uL (4.30-5.70); RED CELL DISTRIBUTION WIDTH 14.1 % (11.5-14.5); WHITE BLOOD COUNT 5.3 x10^3/uL (4.0-11.0)
[2019-05-27 10:00] LABS: ALBUMIN 3.4 g/dL (3.4-5.0); ALBUMIN/GLOBULIN RATIO 1.1 (1.0-1.7); CALCIUM 9.2 mg/dL (8.5-10.1); CREATININE 1.5 mg/dL (0.7-1.3); GFR 44.7; TOTAL BILIRUBIN 0.3 mg/dL (0.2-1.0); TOTAL PROTEIN 6.5 g/dL (6.4-8.2)
[2019-05-27] MEDS: BUDESONIDE 0.5 MG/2 ML NEBU NEB SCH (10:31)
--- NOTE | 2019-05-27 12:33 | NUR ---
Pt is calm, cooperative, compliant. No agitation, no aggression, no hallucinations, no delusions. Denies SI/HI. He is compliant with medication and assessment.
[2019-05-27 16:06] VITALS: BP 121/76
[2019-05-27] MEDS: metFORMIN XR 500 MG TAB.ER.24H PO SCH (16:20)
[2019-05-27] MEDS: CYPROHEPTADINE 4 MG TABLET. PO SCH (20:21)
[2019-05-27] MEDS: MIRTAZAPINE 7.5 MG TABLET. PO SCH (20:21)
[2019-05-27] MEDS: TAMSULOSIN 0.4 MG CAP.ER.24H. PO SCH (20:22)
--- NOTE | 2019-05-27 21:32 | PDOC ---
Exam Note: Alvaro Note: Please also refer to the separate dictated note~for this date of service dictated separately.~Patient seen individually. Discussed the patient with Nursing staff reviewed the chart.~Reviewed interim history and current functioning. Reviewed vital signs,~Labs/ Radiology~and current medications noted below. Continue current treatment with the changes noted in the dictated addendum note Assessment: Vital Signs/I&O: Vital Signs Date Time Temp Pulse Resp B/P (MAP) Pulse Ox O2 Delivery O2 Flow Rate FiO2 05/27/19 21:02 96 Room Air 05/27/19 16:06 98.4 60 16 121/76 (91) I & O 05/26/19 05/26/19 05/27/19 15:00 23:00 07:00 Intake Total 840 ml 240 ml 120 ml Balance 840 ml 240 ml 120 ml Labs: Laboratory Tests Test 05/27/19 09:41 White Blood Count 5.3 x10^3/uL (4.0-11.0) Red Blood Count 5.05 x10^6/uL (4.30-5.70) Hemoglobin 15.5 g/dL (13.0-17.5) Hematocrit 46.7 % (39.0-53.0) Mean Corpuscular Volume 93 fL (79-100) Mean Corpuscular Hemoglobin 31 pg (25-35) Mean Corpuscular Hemoglobin Concent 33 g/dL (31-37) Red Cell Distribution Width 14.1 % (11.5-14.5) Platelet Count 188 x10^3/uL (140-400) Neutrophils (%) (Auto) 71 % (31-73) Lymphocytes (%) (Auto) 20 % (24-48) L Monocytes (%) (Auto) 5 % (0-9) Eosinophils (%) (Auto) 3 % (0-3) Basophils (%) (Auto) 1 % (0-3) Neutrophils # (Auto) 3.7 x10^3uL (1.8-7.7) Lymphocytes # (Auto) 1.1 x10^3/uL (1.0-4.8) Monocytes # (Auto) 0.2 x10^3/uL (0.0-1.1) Eosinophils # (Auto) 0.2 x10^3/uL (0.0-0.7) Basophils # (Auto) 0.0 x10^3/uL (0.0-0.2) Sodium Level 139 mmol/L (136-145) Potassium Level 4.0 mmol/L (3.5-5.1) Chloride Level 102 mmol/L (98-107) Carbon Dioxide Level 28 mmol/L (21-32) Anion Gap 9 (6-14) Blood Urea Nitrogen 33 mg/dL (8-26) H Creatinine 1.5 mg/dL (0.7-1.3) H Estimated GFR (Cockcroft-Gault) 44.7 BUN/Creatinine Ratio 22 (6-20) H Glucose Level 223 mg/dL (70-99) H Calcium Level 9.2 mg/dL (8.5-10.1) Total Bilirubin 0.3 mg/dL (0.2-1.0) Aspartate Amino Transferase (AST) 14 U/L (15-37) L Alanine Aminotransferase (ALT) 25 U/L (16-63) Alkaline Phosphatase 75 U/L (46-116) Total Protein 6.5 g/dL (6.4-8.2) Albumin 3.4 g/dL (3.4-5.0) Albumin/Globulin Ratio 1.1 (1.0-1.7) Current Medications: I have reviewed the current psychotropics carefully including drug interactions. Risk benefit ratio favors no change other than as noted in my dictated progress note. Diagnosis: Problems: (1) Bipolar affective, mixed, severe (2) Bipolar 2 disorder (3) Anxiety disorder (4) Impulse control disorder (5) Mild cognitive impairment (6) Major depressive disorder, recurrent episode (7) Personality disorder in adult NORM BRISENO MD May 27, 2019 21:32
--- NOTE | 2019-05-27 23:55 | NUR ---
Nursing Note: Assumed care of pt. this evening, he was sitting out in the day room. He has been calm, cooperative. He has been compliant with taking his HS meds whole this evening. No aggression or agitation noted at this time.
--- NOTE | 2019-05-28 00:20 | PN ---
DATE: 05/25/2019 PSYCHIATRIC PROGRESS NOTE This late entry 05/25/2019 covers elements not covered in my initial note. SUBJECTIVE: I met with the patient evening of 05/25/2019. Per MAKAYLA Norwood, the patient slept 6-3/4 hours previous night. He still complains of feeling weak at times. States he cannot walk from the bedroom to the bathroom, but in fact he does everything reasonably well. Appetite is fair. MENTAL STATUS EXAM: Reasonably oriented. Speech has some latency, coherent. Abstraction fair, computation impaired, language function intact, attention span short. Mood and affect, somewhat anxious, dysphoric, but improved. LABORATORY DATA: Reviewed. IMPRESSION: Unchanged from initial note. PLAN: No change from initial note. The patient may need to increase Latuda in due course. MAN Suman BRISENO MD DR: ESTHER/joel JOB#: [id number] / [id number]
[2019-05-28] MEDS: BUDESONIDE 0.5 MG/2 ML NEBU NEB SCH ×4 (05:48→23:01)
[2019-05-28 06:01] VITALS: BP 94/61
[2019-05-28 07:23] VITALS: BP 123/73
[2019-05-28] MEDS: LURASIDONE 40 MG TABLET. PO SCH (07:47)
[2019-05-28] MEDS: OMEGA-3 FATTY ACIDS/FISH OIL 1,000 MG CAPSULE. PO SCH (07:47)
[2019-05-28] MEDS: FAMOTIDINE 20 MG TABLET PO SCH (07:47)
[2019-05-28] MEDS: DOCUSATE SODIUM 100 MG CAPSULE PO SCH ×2 (07:47→19:52)
[2019-05-28] MEDS: POLYETHYLENE GLYCOL 3350 17 GM PACKET. PO SCH (07:47)
[2019-05-28] MEDS: FINASTERIDE 5 MG TABLET PO SCH (07:48)
[2019-05-28] MEDS: NYSTATIN TOPICAL POWDER 15GM BOTTLE. TP SCH ×2 (07:49→21:00)
--- NOTE | 2019-05-28 09:38 | NUR ---
No agitation, no aggression, no hallucinations, no delusions. Denies SI/HI. He is compliant with medication and assessment. Pt is calm, cooperative, compliant.
--- NOTE | 2019-05-28 12:45 | NUR ---
SHUBHAM met with pt and his to discuss the potential for discharge later this week. SW noted that pt could discharge either or Tuesday; both parties requested that SW contact their dtr as she would be the one to pick pt up. She is currently sick and is not sure what she has going on. Pt asked about pt clothes as he reports that quite a few of them are missing. Pt assumes that because he and another pt have the same name, that he may have some of his clothes. SW will inform nursing and see if they will double check both closets.
[2019-05-28] MEDS ORDERED: FLU VAX QS 2019-20 (36MOS+)/PF 0.5 ML SYRINGE. VAX IM ONE (13:45)
[2019-05-28 16:02] VITALS: BP 121/76
[2019-05-28] MEDS: metFORMIN XR 500 MG TAB.ER.24H PO SCH (17:20)
[2019-05-28] MEDS: TAMSULOSIN 0.4 MG CAP.ER.24H. PO SCH (19:53)
[2019-05-28] MEDS: MIRTAZAPINE 7.5 MG TABLET. PO SCH (19:53)
[2019-05-28] MEDS: CYPROHEPTADINE 4 MG TABLET. PO SCH (19:53)
--- NOTE | 2019-05-28 21:41 | PDOC ---
Exam Note: Alvaro Note: Please also refer to the separate dictated note~for this date of service dictated separately.~Patient seen individually. Discussed the patient with Nursing staff reviewed the chart.~Reviewed interim history and current functioning. Reviewed vital signs,~Labs/ Radiology~and current medications noted below. Continue current treatment with the changes noted in the dictated addendum note Assessment: Vital Signs/I&O: Vital Signs Date Time Temp Pulse Resp B/P (MAP) Pulse Ox O2 Delivery O2 Flow Rate FiO2 05/28/19 20:35 96 Room Air 05/28/19 16:02 97.8 65 18 121/76 (91) I & O 05/27/19 05/27/19 05/28/19 15:00 23:00 07:00 Intake Total 840 ml 480 ml Balance 840 ml 480 ml Current Medications: Meds: Current Medications Medications (Trade) Dose Ordered Sig/Bree Route PRN Reason Start Time Stop Time Status Last Admin Dose Admin Influenza Virus Vaccine Quadrival (Afluria Quad 2019-20 (3yr Up) Syringe) 0.5 ml ONCE ONCE VAX IM 05/28/19 13:45 05/28/19 13:46 DC 05/28/19 17:32 I have reviewed the current psychotropics carefully including drug interactions. Risk benefit ratio favors no change other than as noted in my dictated progress note. Diagnosis: Problems: (1) Bipolar affective, mixed, severe (2) Bipolar 2 disorder (3) Anxiety disorder (4) Impulse control disorder (5) Mild cognitive impairment (6) Major depressive disorder, recurrent episode (7) Personality disorder in adult NORM BRISENO MD May 28, 2019 21:41
--- NOTE | 2019-05-29 00:13 | NUR ---
Nursing Note Pt calm cooperative and pleasant. Denies complaints tonight other than waiting for RT is in good spirits. Pt is encouraging to peers and positive this PM.
--- NOTE | 2019-05-29 00:35 | PN ---
DATE: 05/27/2019 PSYCHIATRIC PROGRESS NOTE This late entry, 05/27, covers elements not covered in my initial note. SUBJECTIVE: I met with the patient in the evening. The patient slept 7-1/2 hours previous night. He has been less tearful, but remains anxious, somewhat somatically preoccupied, less so than before. Does still have some breathing complaints, but no CV, , eye, ENT system symptoms on review. MENTAL STATUS EXAM: Reasonably oriented. Speech is coherent, has some latency. Abstraction fair, computation impaired, language function intact, attention span short. Mood and affect showing improvement. LABORATORY DATA: Reviewed. IMPRESSION: Unchanged from initial note. PLAN: No change from initial note. MAN Suman BRISENO MD DR: ESTHER/joel JOB#: [id number] / [id number]
--- NOTE | 2019-05-29 00:36 | PN ---
DATE: 05/26/2019 PSYCHIATRIC PROGRESS NOTE This late entry 05/26/2019 covers elements not covered in my initial note. SUBJECTIVE: I met with the patient evening of 05/26/2019. The patient slept 8-1/2 hours previous night. The patient has been compliant with medications, still somatically preoccupied, telling me he is getting weaker, but despite this, his preoccupation with the somatic complaints is less intense per nursing report by Stacia. He was walking at night. REVIEW OF SYSTEMS: No CV, , pulmonary, eye system symptoms on review. Does admit to some breathing problems as before. MENTAL STATUS EXAMINATION: Reasonably oriented. Speech has some latency, coherent. Abstraction fair, computation impaired, language function intact. Mood and affect still somewhat dysphoric. LABORATORY DATA: Reviewed. IMPRESSION: Unchanged from initial note. PLAN: No change from initial note. MAN Suman BRISENO MD DR: ESTHER/joel JOB#: [id number] / [id number]
[2019-05-29 05:55] VITALS: BP 111/67
[2019-05-29] MEDS: FINASTERIDE 5 MG TABLET PO SCH (08:22)
[2019-05-29] MEDS: OMEGA-3 FATTY ACIDS/FISH OIL 1,000 MG CAPSULE. PO SCH (08:22)
[2019-05-29] MEDS: NYSTATIN TOPICAL POWDER 15GM BOTTLE. TP SCH ×2 (08:23→19:55)
[2019-05-29] MEDS: FAMOTIDINE 20 MG TABLET PO SCH (08:23)
[2019-05-29] MEDS: POLYETHYLENE GLYCOL 3350 17 GM PACKET. PO SCH (08:23)
[2019-05-29] MEDS: DOCUSATE SODIUM 100 MG CAPSULE PO SCH ×2 (08:23→19:53)
[2019-05-29] MEDS: LURASIDONE 40 MG TABLET. PO SCH (08:24)
[2019-05-29] MEDS: BUDESONIDE 0.5 MG/2 ML NEBU NEB SCH ×2 (09:32→20:00)
--- NOTE | 2019-05-29 11:28 | NUR ---
Pt is calm and cooperative this morning. Compliant with whole medications.
[2019-05-29 16:35] VITALS: BP 142/84
[2019-05-29] MEDS: metFORMIN XR 500 MG TAB.ER.24H PO SCH (16:40)
[2019-05-29] MEDS: MIRTAZAPINE 7.5 MG TABLET. PO SCH (19:52)
[2019-05-29] MEDS: CYPROHEPTADINE 4 MG TABLET. PO SCH (19:54)
[2019-05-29] MEDS: TAMSULOSIN 0.4 MG CAP.ER.24H. PO SCH (19:54)
--- NOTE | 2019-05-29 22:14 | PDOC ---
Exam Note: Alvaro Note: Please also refer to the separate dictated note~for this date of service dictated separately.~Patient seen individually. Discussed the patient with Nursing staff reviewed the chart.~Reviewed interim history and current functioning. Reviewed vital signs,~Labs/ Radiology~and current medications noted below. Continue current treatment with the changes noted in the dictated addendum note Assessment: Vital Signs/I&O: Vital Signs Date Time Temp Pulse Resp B/P (MAP) Pulse Ox O2 Delivery O2 Flow Rate FiO2 05/29/19 20:00 95 Room Air 05/29/19 16:35 97.7 64 19 142/84 (103) I & O 05/28/19 05/28/19 05/29/19 15:00 23:00 07:00 Intake Total 840 ml 240 ml 240 ml Balance 840 ml 240 ml 240 ml Current Medications: I have reviewed the current psychotropics carefully including drug interactions. Risk benefit ratio favors no change other than as noted in my dictated progress note. Diagnosis: Problems: (1) Bipolar affective, mixed, severe (2) Bipolar 2 disorder (3) Anxiety disorder (4) Impulse control disorder (5) Mild cognitive impairment (6) Major depressive disorder, recurrent episode (7) Personality disorder in adult NORM BRISENO MD May 29, 2019 22:14
--- NOTE | 2019-05-30 03:27 | NUR ---
Nursing Note Pt is pleasant calm and cooperative no complaints no obsessive statements.
[2019-05-30 05:54] VITALS: BP 107/66
--- NOTE | 2019-05-30 06:21 | PN ---
DATE: 05/28/2019 This late entry 05/28/2019 covers elements not covered in my initial note. SUBJECTIVE: I met with the patient evening of 05/28/2019. The patient slept 6-3/4 hours previous night. He has a brighter affect, appears less anxious, more smiling per MAKAYLA Perez. He introduced his to the nursing staff, was quite appropriate, appeared less anxious and obsessive. Less fixated on breathing problems. No CV, , eye, ENT system symptoms on review. MENTAL STATUS EXAM: Reasonably oriented. Speech is coherent, has some latency. Abstraction fair, computation impaired, language function intact, attention span short. Mood and affect is improved, slightly brighter, less anxious, less obsessive. LABORATORY DATA: Reviewed. IMPRESSION: Unchanged from initial note. PLAN: No change from initial note. MAN Suman BRISENO MD DR: ESTHER/joel JOB#: [id number] / [id number]
[2019-05-30] MEDS: POLYETHYLENE GLYCOL 3350 17 GM PACKET. PO SCH (09:00)
[2019-05-30] MEDS: DOCUSATE SODIUM 100 MG CAPSULE PO SCH ×2 (09:00→20:24)
[2019-05-30] MEDS: OMEGA-3 FATTY ACIDS/FISH OIL 1,000 MG CAPSULE. PO SCH (09:01)
[2019-05-30] MEDS: FAMOTIDINE 20 MG TABLET PO SCH (09:01)
[2019-05-30] MEDS: FINASTERIDE 5 MG TABLET PO SCH (09:01)
[2019-05-30] MEDS: LURASIDONE 40 MG TABLET. PO SCH (09:03)
[2019-05-30] MEDS: NYSTATIN TOPICAL POWDER 15GM BOTTLE. TP SCH ×2 (09:09→20:25)
[2019-05-30] MEDS: BUDESONIDE 0.5 MG/2 ML NEBU NEB SCH ×2 (09:55→20:02)
--- NOTE | 2019-05-30 10:49 | NUR ---
Patient was calm, cooperative and compliant with taking his medications whole this morning. No aggression or agitation noted at this time.
--- NOTE | 2019-05-30 15:50 | NUR ---
SHUBHAM returned call to pt dtr to discuss pt discharge. SHUBHAM suggested the potential for Tuesday discharge. However, pt dtr is preferring to pick pt up on . She has a few appointments herself on Tuesday and would prefer to pick pt up on after work ([id number]). Pt dtr wants to make sure that [facility] and [facility] his medical records sent there and to her once completed. SHUBHAM will secure pt discharge and have a medical records form completed for pt dtr to sign and initial tomorrow once she comes to pick pt up.
[2019-05-30 16:06] VITALS: BP 103/64
[2019-05-30] MEDS: metFORMIN XR 500 MG TAB.ER.24H PO SCH (17:06)
[2019-05-30] MEDS: TAMSULOSIN 0.4 MG CAP.ER.24H. PO SCH (20:24)
[2019-05-30] MEDS: MIRTAZAPINE 7.5 MG TABLET. PO SCH (20:25)
[2019-05-30] MEDS: CYPROHEPTADINE 4 MG TABLET. PO SCH (20:25)
--- NOTE | 2019-05-30 21:29 | PDOC ---
Exam Note: Alvaro Note: Please also refer to the separate dictated note~for this date of service dictated separately.~Patient seen individually. Discussed the patient with Nursing staff reviewed the chart.~Reviewed interim history and current functioning. Reviewed vital signs,~Labs/ Radiology~and current medications noted below. Continue current treatment with the changes noted in the dictated addendum note Assessment: Vital Signs/I&O: Vital Signs Date Time Temp Pulse Resp B/P (MAP) Pulse Ox O2 Delivery O2 Flow Rate FiO2 05/30/19 20:02 99 Room Air 05/30/19 16:06 97.9 66 16 103/64 (77) I & O 05/29/19 05/29/19 05/30/19 14:59 22:59 06:59 Intake Total 840 ml 480 ml 240 ml Balance 840 ml 480 ml 240 ml Current Medications: I have reviewed the current psychotropics carefully including drug interactions. Risk benefit ratio favors no change other than as noted in my dictated progress note. Diagnosis: Problems: (1) Bipolar affective, mixed, severe (2) Bipolar 2 disorder (3) Anxiety disorder (4) Impulse control disorder (5) Mild cognitive impairment (6) Major depressive disorder, recurrent episode (7) Personality disorder in adult NORM BRISENO MD May 30, 2019 21:29
--- NOTE | 2019-05-30 21:49 | NUR ---
Nursing Note: Assumed care of pt. this evening, he was sitting out in the day room. He has been calm, cooperative, and interacting appropriately with staff. He has been compliant with taking his HS meds whole this evening. No agitation or aggression noted at this time.
[2019-05-30] MEDS ORDERED: ACET325T9 PO (23:35)
[2019-05-30] MEDS ORDERED: CYPR4TAB31 PO (23:38)
[2019-05-30] MEDS ORDERED: DOCU-109 PO (23:39)
[2019-05-30] MEDS ORDERED: FAMO20TA5 PO (23:40)
[2019-05-30] MEDS ORDERED: LURA80TA PO (23:41)
[2019-05-30] MEDS ORDERED: MAG30ORA2 PO (23:45)
[2019-05-30] MEDS ORDERED: MAGN2400 PO (23:46)
[2019-05-30] MEDS ORDERED: METH28OI2 TP (23:47)
[2019-05-30] MEDS ORDERED: NYST60PO TP ×2 (23:52→23:54)
[2019-05-30] MEDS ORDERED: OLAN5TAB5 PO (23:56)
[2019-05-31] MEDS ORDERED: OMEG-33 PO
[2019-05-31] MEDS ORDERED: OXCA600T9 PO (00:02)
[2019-05-31] MEDS ORDERED: POLY17PO5 PO ×2 (00:08→00:10)
[2019-05-31] MEDS ORDERED: FLUV100T2 PO (00:09)
[2019-05-31 05:43] VITALS: BP 99/62
--- NOTE | 2019-05-31 06:25 | PN ---
DATE: 05/29/2019 PSYCHIATRIC PROGRESS NOTE This late entry, 05/29, covers elements not covered in my initial note. SUBJECTIVE: I met with the patient evening of 05/29. The patient slept 7-1/4 hours previous night. He has done well at night and during the day per Ana RN, on nursing report. REVIEW OF SYSTEMS: No CV, , pulmonary, eye system symptoms on review. Does complain of some tiredness, but less somatically preoccupied than before. MENTAL STATUS EXAM: The patient is reasonably oriented. Speech is coherent, abstraction fair, computation impaired, language function intact. Mood and affect showing improvement. LABORATORY DATA: Reviewed. IMPRESSION: Unchanged from initial note. PLAN: No change from initial note. MAN Suman BRISENO MD DR: ESTHER/joel JOB#: [id number] / [id number]
[2019-05-31] MEDS: POLYETHYLENE GLYCOL 3350 17 GM PACKET. PO SCH (07:43)
[2019-05-31] MEDS: NYSTATIN TOPICAL POWDER 15GM BOTTLE. TP SCH (07:43)
[2019-05-31] MEDS: OMEGA-3 FATTY ACIDS/FISH OIL 1,000 MG CAPSULE. PO SCH (07:43)
[2019-05-31] MEDS: LURASIDONE 40 MG TABLET. PO SCH (07:43)
[2019-05-31] MEDS: FINASTERIDE 5 MG TABLET PO SCH (07:44)
[2019-05-31] MEDS: DOCUSATE SODIUM 100 MG CAPSULE PO SCH (07:44)
[2019-05-31] MEDS: FAMOTIDINE 20 MG TABLET PO SCH (07:44)
--- NOTE | 2019-05-31 09:00 | NUR ---
Nursing Note: Pt calm, compliant w/ meds taken whole, pt looking forward to going home.
--- NOTE | 2019-05-31 09:56 | NUR ---
WEEKLY ACTIVITY THERAPY NOTE Date of Admission: 04/19/2019 Date of AT Assessment: 04/22/2019 Goal aimed:to increase relaxation techniques and leisure awareness Initial Goal:Pt. will participate in at least five Activity Therapy groups per week. Weekly progress towards goal: exceeded, 10/5 Group participation level: moderate to full Weekly highlights: several full groups Behaviors observed: walks to door and back to seat several times during groups, around group often, asked about time, very observant of staff and their behaviors/moves Plan: change goal to: Pt. will participate in at least one Activity Therapy group per day Beneficial adaptations: invitations to group (agreed to be woken up if sleeping), encouragement and repeat, better response in morning group
[2019-05-31] MEDS: BUDESONIDE 0.5 MG/2 ML NEBU NEB SCH (10:56)
--- NOTE | 2019-05-31 14:10 | NUR ---
[facility] Social Work Discharge Planning Form Patient Name MERCEDEZ FORD Admit Date: 04/19/19 DISCHARGE PLAN Discharge Destination: Pt to discharge home with Care Assessment: N/A Level II Assessment: N/A Transportation: Pt dtrRosa, to pick pt up between 1600 and 1630 Special Instructions/Notes: Please fax all discharge orders and discharge medication list to the [facility] fax number provided. DISCHARGE TO HOME: Address: [address] [place] [address]; [place] [address] Responsible Alliance Party: Rosa Jackson Pharm[facility]: [facility] Contact Information: [address], [place] [address] Psychiatrist/Mental Health Follow Up: Dr. Pierce Contact Information: [id number]; [place] [address] [id number] Appointment: TBD Primary Care Follow Up: Dr. Crowley Contact Information: [address]; [place] [address] [id number] Appointment: Dr. Crowley prefers for pt to see the mental health clinician first then see him afterwards, if needed. Counseling: [facility] Contact Information: [address], [address] [place] [address] Left a message and asked for a returned call.
--- NOTE | 2019-05-31 16:42 | NUR ---
Transition Record was faxed to follow-up provider with the following elements: Reason for admission, procedures, tests, principal diagnosis, pending studies, patient instructions, 21/03 contact information for unit, phone number to obtain pending test results, plan for follow-up care, physician follow-up, advanced directive information, and medication list with dose, duration and instructions. This information was included in the following documents: History and physical, lab results, study results, progress notes, social work planning form, DC instruction form, patient visit summary, and medication reconciliation form. Date & time record faxed:05/31/19 [place] @ 1409 Record faxed to:[phone] Record discussed with/ report given to:Shilpi RN: [phone]
--- NOTE | 2019-05-31 21:39 | PDOC ---
Exam Note: Alvaro Note: Please also refer to the separate dictated note~for this date of service dictated separately.~Patient seen individually. Discussed the patient with Nursing staff reviewed the chart.~Reviewed interim history and current functioning. Reviewed vital signs,~Labs/ Radiology~and current medications noted below. Continue current treatment with the changes noted in the dictated addendum note Assessment: Vital Signs/I&O: Vital Signs Date Time Temp Pulse Resp B/P (MAP) Pulse Ox O2 Delivery O2 Flow Rate FiO2 05/31/19 10:57 96 Room Air 05/31/19 05:43 97.3 58 16 99/62 (74) I & O 05/30/19 05/30/19 05/31/19 15:00 23:00 07:00 Intake Total 960 ml 240 ml 120 ml Balance 960 ml 240 ml 120 ml Current Medications: I have reviewed the current psychotropics carefully including drug interactions. Risk benefit ratio favors no change other than as noted in my dictated progress note. Diagnosis: Problems: (1) Bipolar affective, mixed, severe (2) Bipolar 2 disorder (3) Anxiety disorder (4) Impulse control disorder (5) Mild cognitive impairment (6) Major depressive disorder, recurrent episode (7) Personality disorder in adult NORM BRISENO MD May 31, 2019 21:39
--- NOTE | 2019-06-01 12:56 | DS ---
DATE OF DISCHARGE: 05/31/2019 This late entry 05/31/2019 covers elements not covered in my initial note. REASON FOR ADMISSION: Please refer to the admission history for details. Briefly, the patient is an 84-year-old male referred to us by the [facility], having failed outpatient psychiatric interventions from his home and extensive outpatient treatment many for the past several years with Dr. Collins Christopher M.D., psychiatrist. The patient was extremely obsessive, has a diagnosis of bipolar disorder. His appetite had been poor, part of his obsessiveness with 20-pound weight loss, failure to thrive, not eating, refusing medications, perseverating on his breathing problems, declining outpatient visits, having failed outpatient psychiatric interventions, referred for inpatient psychiatric stabilization. SIGNIFICANT FINDINGS AND CLINICAL COURSE: Following admission, the patient was seen daily individually by myself from a psychiatric standpoint, medical followup with Dr. Drummond. We obtained all his past psychiatric records which were extensive, very detailed specifically from Dr. Christopher with a diagnosis of bipolar disorder; anxiety amongst others and the various treatments that he had failed. Adjustments were made in his psychotropics and he seemed to do much better on a combination of Luvox 150 mg at bedtime, Remeron 7.5 mg at bedtime, Zyprexa 2.5 mg q.2 hours p.r.n. psychosis, agitation, and Trileptal 600 mg b.i.d. as a mood stabilizer, Latuda 80 mg a day. Prior to discharge on 05/31/2019, he is less preoccupied with his breathing problems. REVIEW OF SYSTEMS: No CV, , eye system symptoms on review. MENTAL STATUS EXAM: Reasonably oriented. Speech is coherent, abstraction fair, computation impaired, language function intact, attention span short. Mood and affect improved. No suicidal or homicidal ideation at discharge. FINAL DIAGNOSES: Bipolar disorder, mixed with psychotic features in partial remission; OCD, anxiety disorder, unspecified; impulse control disorder. Rest unchanged from admission. DISCHARGE MEDICATIONS: Please refer to the [facility]AD. DISCHARGE INSTRUCTIONS: Outpatient psychiatric and medical followup at the [facility]. Time for discharge day management greater than 30 minutes. NORM BRISENO MD DR: ESTHER/joel JOB#: [id number] / [id number]
--- NOTE | 2019-06-01 20:23 | PN ---
DATE: 05/30/2019 PSYCHIATRIC PROGRESS NOTE This late entry 05/30/2019 covers elements not covered in my initial note. SUBJECTIVE: I met with the patient in the evening. According to MAKAYLA Mckeon, patient slept 7-3/4 hours previous night. He has been less paranoid, less anxious, less somatically preoccupied. REVIEW OF SYSTEMS: Still believe he had some trouble breathing, much less preoccupied with this. No CV, , eye system symptoms on review. MENTAL STATUS EXAM: Oriented reasonably. Speech is coherent, abstraction fair, computation impaired, language function intact, attention span fair. Mood and affect is improved. LABORATORY DATA: Reviewed. IMPRESSION: Unchanged from initial note. PLAN: No change from initial note. MAN Suman BRISENO MD DR: ESTHER/joel JOB#: [id number] / [id number]
== END 2019-05-31 16:30 | disposition home or self-care (01) | DRG 885 ==
LOC: GEROPSY 17:26
PROVIDERS: ADMIT Psychiatry & Neurology Psychiatry; ATTEND Psychiatry & Neurology Psychiatry
DX: F31.64 Bipolar disorder, current episode mixed, severe, with psychotic features (principal); N17.9 Acute kidney failure, unspecified; G31.84 Mild cognitive impairment of uncertain or unknown etiology; F41.9 Anxiety disorder, unspecified; F63.9 Impulse disorder, unspecified; F60.9 Personality disorder, unspecified; R62.7 Adult failure to thrive; F42.9 Obsessive-compulsive disorder, unspecified; D86.9 Sarcoidosis, unspecified; E11.9 Type 2 diabetes mellitus without complications; E78.5 Hyperlipidemia, unspecified; H57.9 Unspecified disorder of eye and adnexa; I25.10 Atherosclerotic heart disease of native coronary artery without angina pectoris; K21.9 Gastro-esophageal reflux disease without esophagitis; K59.00 Constipation, unspecified; M81.0 Age-related osteoporosis without current pathological fracture; N40.0 Benign prostatic hyperplasia without lower urinary tract symptoms; Z79.899 Other long term (current) drug therapy; Z86.010 Personal history of colon polyps; Z88.8 Allergy status to other drugs, medicaments and biological substances
CPT/HCPCS: 36415; 80053; 80061; 82306; 82947; 83036; 83540; 83550; 84436; 84443; 84480; 85025; 86592; 90471; 90686; 93005; 94640; J7620; J7626